=== PATIENT | female | born 1955 | race Caucasian/White ===

== ENCOUNTER 2017-01-22 14:00 | Emergency (ER) | payer MEDICARE ==
[~2017-01-22 14:00] MED LIST: ISOVUE-370 76%-LOCM 1 ML ONE; Iopamidol 370 76% 50 ML VIAL FS ONE
[2017-01-22 14:41] LABS: #Lymphocytes 1.4 thou/uL (1.20-3.40); #Monocytes 0.6 thou/uL (0.11-0.59); #Neutrophils 2.9 thou/uL (1.40-6.50); %Basophils 0.4 % (0.0-1.0); %Eosinophils 0.7 % (0.0-10.0); %Monocytes 11.7 % (0.0-10.0); Hematocrit 27.4 % (36.0-47.0); Mean Platelet Volume 8.1 fL (7.4-10.4); Red Blood Cell (RBC) Count 3.89 mill/uL (4.20-5.40); White Blood Cell (WBC) Count 4.9 thou/uL (4.8-10.8)
[2017-01-22 15:01] LABS: ALT (SGPT) 7 U/L (8-55); AST (SGOT) 17 U/L (5-34); Alkaline Phosphatase 105 U/L (40-150); Anion Gap 9 mmol/L (10-20); BUN (Urea Nitrogen) 9 mg/dL (9.8-20.1); Bilirubin, Total 0.4 mg/dL (0.2-1.2); Calc. Creatinine Clearance 0 mL/min (70-130); Calcium 8.8 mg/dL (7.8-10.44); Carbon Dioxide 28 mmol/L (23-31); Chloride 101 mmol/L (98-107); Estimated GFR-MDRD 81; Globulin 2.8 g/dL (2.4-3.5); Lipase 26 U/L (8-78); Protein, Total 6.5 g/dL (6.0-8.3)
[2017-01-22] MEDS ORDERED: Morphine 4 MG/ML VIAL ONE (15:02)
[2017-01-22] MEDS ORDERED: Pantoprazole 40 MG VIAL ONE (15:02)
[2017-01-22 15:06] LABS: Lactic Acid - Sepsis 0.4 mmol/L (0.5-2.2)
[2017-01-22 16:42] LABS: Bilirubin Negative (Negative); Blood, Urine Negative (Negative); Glucose, Urine (Dipstick) Negative (Negative); Ketone, Urine Negative (Negative); Nitrite Negative (Negative); Protein, Urine (Dipstick) Negative (Neg-Trace)
[2017-01-22 16:44] LABS: Bacteria/HPF 4+ HPF (None Seen); Hyaline Casts/LPF 0-3 HYALINE CAST LPF (0-3 Hyaline); Squamous Epithelial 0-3 HPF (0-3); WBC/HPF 21-50 HPF (0-3)
--- NOTE | 2017-01-22 17:12 | CT ---
ABDOMEN AND PELVIC CT SCAN WITH IV CONTRAST: History: 62-year-old female with abdominal pain, worsening over the last two days. Comparison: 01-29-15 FINDINGS: Minimal chronic appearing pleural based changes in the right lower lobe with a calcified granuloma. T here appear to be fairly extensive post-operative changes probably related to some type of gastric by pass surgery. Status post cholecystectomy with fairly marked dilatation of the common bile duct and c ommon hepatic duct but no significant intrahepatic ductal dilatation. There is also generalized dilat ation of the main pancreatic duct. There is a small amount of thin fluid density adjacent to the post erior medial aspect of the right lobe of the liver, possibly a small amount of free intraperitoneal f luid. No significant fluid is seen around the spleen or in the colonic gutters or in the pelvis. The kidneys have a somewhat scarred appearance without evidence for renal calculus or acute obstructio n. No CT evidence for acute appendicitis. No abscess, adenopathy, or bowel obstruction. IMPRESSION: Very small amount of fluid density adjacent to the posterior medial aspect of the right lobe of liver , possibly minimal intraperitoneal fluid. Post op changes of the stomach, evidence for probable prior gastric bypass surgery. Post op cholecystectomy with dilatation of the common bile duct and common h epatic duct and the main pancreatic duct without evidence of associated mass. Slightly scarred appear ing kidneys bilaterally without renal calculus or acute obstruction. No evidence for other signifi cant acute process in the abdomen or pelvis. POS: DEBBIE
== END 2017-01-22 19:20 | disposition home or self-care (01) ==
LOC: ERS 14:00
DX: N39.0 Urinary tract infection, site not specified (principal); J44.9 Chronic obstructive pulmonary disease, unspecified; I10 Essential (primary) hypertension; F32.9 Major depressive disorder, single episode, unspecified; F17.210 Nicotine dependence, cigarettes, uncomplicated; Z79.899 Other long term (current) drug therapy
CPT/HCPCS: 36415; 74177; 80053; 81003; 81015; 82274; 83605; 83690; 85025; 93005; 96361; 96374; 96375; C9113; J2270

== ENCOUNTER 2018-02-08 12:35 | Outpatient (CLI) | payer MEDICARE, MEDICAID ==
[2018-02-08 13:45] VITALS: BP 190/86; TEMP 98.6
[2018-02-08] MEDS ORDERED: Ferumoxytol (ERSD) 510 MG in Sodium Chloride 0.9% 250 ML 150 ML IVPB SCH (14:00)
[2018-02-08 14:45] LABS: Hemoglobin 8.2 g/dL (12.0-16.0); Mean Corpuscular HGB CONC 29.4 g/dL (32.0-36.0); Mean Corpuscular Hemoglobin 19.8 pg (27.0-31.0); Mean Corpuscular Volume 67.3 fL (78.0-98.0); Mean Platelet Volume 9.7 fL (7.4-10.4); Platelet Count 392 thou/uL (130-400); RBC Distribution Width 18.9 % (11.5-14.5); Red Blood Cell (RBC) Count 4.12 mill/uL (4.20-5.40); White Blood Cell (WBC) Count 5.8 thou/uL (4.8-10.8)
--- NOTE | 2018-02-08 14:52 | CT ---
CT THORAX NONCONTRAST: (Low dose screening) Date: 02/08/18 HISTORY: 62-year-old female current smoker with 94 pack-year smoking history. Cough and COPD. FINDINGS: There is diffuse hyperinflation. There are mild centrilobular emphysematous changes throughout the rafia ngs. No bulla identified. Plate-like pulmonary scar at posterobasilar right lower lobe. Calcified gra nuloma abutting posterolateral basilar pleural surface on right. No suspicious noncalcified pulmonary nodules. No ground-glass opacities, consolidation, bronchiectasis, pleural effusion, pneumothorax, c ardiomegaly, thoracic aortic aneurysm, or mediastinal lymphadenopathy. There are multiple suture line s in the left upper quadrant of the abdominal cavity. IMPRESSION: 1. Lung-RADS Category 1 (negative, less than 1% change of malignancy). 2. Mild centrilobular emphysema. 3. Evidence of previous bariatric surgery. 4. Recommend continued annual screening with low dose CT. FOREIGN Johnson POS: DANIEL
[2018-02-08 14:59] LABS: #Lymphocytes 1.3 thou/uL (1.20-3.40); #Monocytes 0.4 thou/uL (0.11-0.59); #Neutrophils 4.1 thou/uL (1.40-6.50); %Eosinophils 0.2 % (0.0-10.0); %Lymphocytes 22.4 % (21.0-51.0); %Monocytes 7.5 % (0.0-10.0); %Neutrophils 69.9 % (42.0-75.0)
[2018-02-08 15:22] LABS: Anisocytosis SLIGHT = 6-15 cells (100X) (0-5/hpf); Hypochromia SLIGHT = 6-15 cells (100X) (0-5/hpf); Microcytosis SLIGHT = 6-15 cells (100X) (0-5/hpf); Poikilocytosis SLIGHT = 6-15 cells (100X) (0-5/hpf)
== END 2018-02-08 15:55 | disposition home or self-care (01) ==
LOC: CT 12:35 → ONC/OP 15:55
PROVIDERS: ATTEND Internal Medicine Hematology & Oncology
DX: F17.210 Nicotine dependence, cigarettes, uncomplicated (principal); J43.2 Centrilobular emphysema; Z98.84 Bariatric surgery status
CPT/HCPCS: 85025; 96365; G0297; J7050; Q0139

== ENCOUNTER 2018-07-04 10:57 | Emergency (ER) | payer MEDICARE, MEDICAID ==
[~2018-07-04 10:57] MED LIST changes: -Iopamidol 370 76% 50 ML VIAL FS ONE
[2018-07-04 12:57] LABS: #Lymphocytes 1.9 thou/uL (1.20-3.40); #Monocytes 0.5 thou/uL (0.11-0.59); #Neutrophils 4.4 thou/uL (1.40-6.50); %Basophils 0.4 % (0.0-1.0); %Eosinophils 0.5 % (0.0-10.0); %Lymphocytes 28.1 % (21.0-51.0); %Monocytes 7.1 % (0.0-10.0); %Neutrophils 63.8 % (42.0-75.0); Hemoglobin 11.8 g/dL (12.0-16.0); Mean Corpuscular HGB CONC 31.5 g/dL (32.0-36.0); Mean Corpuscular Hemoglobin 26.4 pg (27.0-31.0); Mean Platelet Volume 7.1 fL (7.4-10.4); Platelet Count 297 thou/uL (130-400); RBC Distribution Width 16.4 % (11.5-14.5); Red Blood Cell (RBC) Count 4.47 mill/uL (4.20-5.40); White Blood Cell (WBC) Count 6.9 thou/uL (4.8-10.8)
[2018-07-04 13:12] LABS: Bilirubin Negative (Negative); Blood, Urine Trace (Negative); Clarity CLOUDY (Clear); Glucose, Urine (Dipstick) Negative (Negative); Leukocyte Small (Negative); Nitrite Positive (Negative); Protein, Urine (Dipstick) Negative (Neg-Trace); Specific Gravity, Urine 1.012 (1.002-1.036); pH, Urine 5.5 (5.0-9.0)
[2018-07-04 13:15] LABS: Bacteria/HPF 1+ HPF (None Seen); Hyaline Casts/LPF 0-3 HYALINE CAST LPF (0-3 Hyaline); Pathc Cast-AUWi Flag 0.13 (0-2.49); Squamous Epithelial 0-3 HPF (0-3)
[2018-07-04 13:22] LABS: ALT (SGPT) 8 U/L (8-55); AST (SGOT) 17 U/L (5-34); Albumin 4.1 g/dL (3.4-4.8); Alkaline Phosphatase 97 U/L (40-150); Anion Gap 14 mmol/L (10-20); BUN (Urea Nitrogen) 19 mg/dL (9.8-20.1); Bilirubin, Total 0.4 mg/dL (0.2-1.2); Calc. Creatinine Clearance 0 mL/min (70-130); Carbon Dioxide 22 mmol/L (23-31); Chloride 100 mmol/L (98-107); Estimated GFR-MDRD 45; Globulin 2.8 g/dL (2.4-3.5); Glucose 92 mg/dL (80-115); Lipase 32 U/L (8-78); Potassium 3.9 mmol/L (3.5-5.1); Protein, Total 6.9 g/dL (6.0-8.3); Sodium 132 mmol/L (136-145)
[2018-07-04] MEDS ORDERED: Lidocaine Viscous Sol 2% 15 ml UD Cup ONE (17:03)
[2018-07-04] MEDS ORDERED: Mag-Al 1200 mg/1200 mg/30 ML UDCUP ONE (17:03)
--- NOTE | 2018-07-04 17:38 | CT ---
CT abdomen with contrast CT pelvis with contrast: DATE: 07/04/2018 HISTORY: 62 year old female with upper abdominal pain with nausea. COMPARISON: 01/22/2017. TECHNIQUE: IV injection of iodinated contrast media:Administered Oral contrast media:Not administered FINDINGS: Suture line around narrowed stomach. Fluid-filled postsurgical loop of bowel with mural enhancement o f mucosa appears similar to that of the prior CT, except smaller in volume today. Diffuse dilation of biliary tree again noted probably secondary to the cholecystectomy. Otherwise unremarkable liver. No splenomegaly. No major pathology of pancreas identified. No hydronephrosis. No abdominal aortic aneurysm. Paucity of visceral fat limits the evaluation of bowel and structures outside of the solid organs. Absent uterus. Portions of normal appendix identified. No small bowel dilation. No overt evidence of severe colonic diverticulitis. No large amounts of ascites. No large amounts of pneumoper itoneum demonstrated. No pleural effusion or consolidation at lung bases. The tiny amount of fluid around the liver mentioned on the previous CT was probably a layer of muscle. It is unchanged. No mercedes or interval change overall. IMPRESSION: 1) status post cholecystectomy, bariatric surgery, and hysterectomy. 2) no obvious acute pathology identified.
== END 2018-07-04 19:00 | disposition home or self-care (01) ==
LOC: ERS 10:57
DX: K29.70 Gastritis, unspecified, without bleeding (principal); N39.0 Urinary tract infection, site not specified; F32.9 Major depressive disorder, single episode, unspecified; F17.210 Nicotine dependence, cigarettes, uncomplicated
CPT/HCPCS: 36415; 74177; 80053; 81003; 81015; 83690; 85025; Q9966

== ENCOUNTER 2018-12-17 20:05 | Emergency (ER) | payer MEDICARE, MEDICAID ==
--- NOTE | 2018-12-17 20:32 | RAD ---
Exam: Chest one view HISTORY:Cough Comparison: 01/29/2015 FINDINGS: Lungs: Minimal patchy density, left lung base. Lungs are hyperinflated. Cardiac silhouette:Stable Pulmonary vessels: Normal Pleural Spaces: Clear Pneumothorax: None Osseous abnormalities: None of acuity. IMPRESSION: Minimal patchy left basilar density. This could relate to volume loss, scarring, or subtl e area of consolidation. Short-term follow-up with two view chest would be beneficial to confirm resolution. COPD. Transcribed Date/Time: 12/17/2018 8:34 PM
[2018-12-17 21:20] LABS: #Lymphocytes 0.4 thou/uL (1.20-3.40); #Monocytes 0.9 thou/uL (0.11-0.59); #Neutrophils 7.6 thou/uL (1.40-6.50); %Eosinophils 0.1 % (0.0-10.0); %Lymphocytes 4.2 % (21.0-51.0); %Neutrophils 85.8 % (42.0-75.0); Hemoglobin 9.2 g/dL (12.0-16.0); Mean Corpuscular HGB CONC 32.3 g/dL (32.0-36.0); Mean Corpuscular Hemoglobin 27.5 pg (27.0-31.0); Mean Corpuscular Volume 85.1 fL (78.0-98.0); Mean Platelet Volume 7.7 fL (7.4-10.4); Platelet Count 188 thou/uL (130-400); RBC Distribution Width 15.6 % (11.5-14.5); Red Blood Cell (RBC) Count 3.35 mill/uL (4.20-5.40); White Blood Cell (WBC) Count 8.9 thou/uL (4.8-10.8)
[2018-12-17 21:46] LABS: ALT (SGPT) Less than 7 U/L (8-55); AST (SGOT) 15 U/L (5-34); Alkaline Phosphatase 76 U/L (40-110); Anion Gap 12 mmol/L (10-20); BUN (Urea Nitrogen) 22 mg/dL (9.8-20.1); Bilirubin, Total 0.3 mg/dL (0.2-1.2); Calc. Creatinine Clearance 0 mL/min (70-130); Calcium 7.5 mg/dL (7.8-10.44); Carbon Dioxide 20 mmol/L (23-31); Chloride 99 mmol/L (98-107); Estimated GFR-MDRD 44; Globulin 2.6 g/dL (2.4-3.5); Glucose 120 mg/dL (80-115); Potassium 3.6 mmol/L (3.5-5.1); Protein, Total 5.6 g/dL (6.0-8.3); Sodium 127 mmol/L (136-145)
[2018-12-17 22:32] LABS: Bacteria/HPF 4+ HPF (None Seen); Bilirubin Negative (Negative); Blood, Urine 1+ (Negative); Clarity Turbid (Clear); Glucose, Urine (Dipstick) Normal (Negative); Leukocyte 250 Leu/uL (Negative); Nitrite Negative (Negative); Protein, Urine (Dipstick) 50 mg/dL (Neg-Trace); RBC/HPF 0-3 HPF (0-3); Squamous Epithelial 0-3 HPF (0-3); Urobilinogen Normal mg/dL (Less than 2)
[2018-12-17] MEDS ORDERED: cefTRIAXone\\ROCEPHIN 2 GM VIAL ONE (22:56)
== END 2018-12-17 23:55 | disposition home or self-care (01) ==
LOC: ERS 20:05
DX: N39.0 Urinary tract infection, site not specified (principal); I10 Essential (primary) hypertension; J44.9 Chronic obstructive pulmonary disease, unspecified; F41.9 Anxiety disorder, unspecified; F32.9 Major depressive disorder, single episode, unspecified; F17.210 Nicotine dependence, cigarettes, uncomplicated
CPT/HCPCS: 36415; 51701; 71045; 80053; 81003; 81015; 83605; 85025; 87040; 87077; 87086; 87149; 87186; 87804; 96361; 96365; A4353; J0696

== ENCOUNTER 2018-12-27 10:29 | Emergency (ER) | payer MEDICARE, MEDICAID ==
[2018-12-27] MEDS ORDERED: Mag-Al 1200 mg/1200 mg/30 ML UDCUP ONE (10:48)
[2018-12-27] MEDS ORDERED: Ondansetron ODT 8 MG TAB ONE (10:48)
[2018-12-27] MEDS ORDERED: Lidocaine Viscous Sol 2% 15 ml UD Cup ONE (10:48)
[2018-12-27 11:04] LABS: #Lymphocytes 1.1 thou/uL (1.20-3.40); #Monocytes 0.4 thou/uL (0.11-0.59); %Basophils 0.2 % (0.0-1.0); %Eosinophils 0.1 % (0.0-10.0); %Lymphocytes 9.3 % (21.0-51.0); %Monocytes 3.4 % (0.0-10.0); %Neutrophils 86.9 % (42.0-75.0); Hemoglobin 13.2 g/dL (12.0-16.0); Mean Corpuscular HGB CONC 30.5 g/dL (32.0-36.0); Mean Corpuscular Hemoglobin 26.3 pg (27.0-31.0); Mean Corpuscular Volume 86.4 fL (78.0-98.0); Mean Platelet Volume 6.4 fL (7.4-10.4); Platelet Count 656 thou/uL (130-400); RBC Distribution Width 16.2 % (11.5-14.5); Red Blood Cell (RBC) Count 5.03 mill/uL (4.20-5.40); White Blood Cell (WBC) Count 11.5 thou/uL (4.8-10.8)
[2018-12-27 11:29] LABS: ALT (SGPT) 8 U/L (8-55); AST (SGOT) 17 U/L (5-34); Albumin 4.1 g/dL (3.4-4.8); Alkaline Phosphatase 136 U/L (40-110); Anion Gap 21 mmol/L (10-20); BUN (Urea Nitrogen) 16 mg/dL (9.8-20.1); Bilirubin, Total 0.4 mg/dL (0.2-1.2); Calc. Creatinine Clearance 0 mL/min (70-130); Calcium 9.3 mg/dL (7.8-10.44); Carbon Dioxide 20 mmol/L (23-31); Chloride 99 mmol/L (98-107); Estimated GFR-MDRD 60; Globulin 3.2 g/dL (2.4-3.5); Glucose 94 mg/dL (80-115); Lipase 22 U/L (8-78); Potassium 4.5 mmol/L (3.5-5.1); Protein, Total 7.3 g/dL (6.0-8.3); Sodium 135 mmol/L (136-145)
[2018-12-27] MEDS ORDERED: ISOVUE-370 76%-LOCM 1 ML ONE (11:39)
--- NOTE | 2018-12-27 12:25 | CT ---
CT ABDOMEN AND PELVIS WITH IV CONTRAST 12/27/2018 CLINICAL INFORMATION: Worsening abdominal pain. COMPARISON: 07/04/2018. Technique: Multiple contiguous axial CT images are obtained through the abdomen and pelvis with IV contrast. Cor onal reformatted images are provided. FINDINGS: Lower Chest: Stable scarring is present at the right lung base with associated calcified granuloma. Vessels: Vascular calcifications are seen in the abdominal aorta and involving the iliac arteries. Abdomen: Portal vein:Patent Gallbladder: Surgically absent. The common duct is dilated measuring 1.4 cm with minimal intrahepatic biliary ductal dilatation. The extrahepatic biliary dilatation is slightly more than expected for postcholecystectomy changes, but this is probably attributable to reservoir effect. Similar finding w as noted on the prior exam. Liver: within normal limits. Spleen: Calcified granulomata are present. Pancreas: within normal limits. Adrenals: within normal limits. Kidneys: Left leg appearance with stable subcentimeter too small to characterize hypodense lesions in each kidney. Bowel: Postsurgical changes of loops of bowel in the upper abdomen are noted likely prior gastric byp ass procedure. There is no evidence of a bowel obstruction. Appendix: The appendix is visualized and normal in caliber. Vessels: Vascular calcifications are seen in the abdominal aorta and involving the iliac arteries. Peritoneum: No ascites or free air; no fluid collection. Mesentery and Retroperitoneum: No enlarged mesenteric or retroperitoneal lymph nodes. Abdominal Wall: within normal limits. Pelvis: Reproductive Organs: Evidence of prior hysterectomy. Pelvis: There is a complex multiseptated cystic mass seen in the left hemipelvis measuring 5.1 cm AP x3.3 cm transverse. This mass was also present on the prior exam given the adjacent loops of unopacified bowel is difficult to delineate.. This could potentially be ovarian in origin. Bladder: Mostly decompressed. Bones: No suspicious lytic or sclerotic osseous lesions are identified. IMPRESSION: Multiseptated cystic mass left hemipelvis measuring 5.1 cm x 3.3 cm with interval enlargement and ang or measurements of 4.9 cm x 2.6 cm. Exact etiology of this cystic mass is uncertain. This may be ovarian in origin and may represent a benign or malignant cystic neoplastic process. Given positionin g of this cystic mass, this may be difficult to further evaluate given multiple overlying loops of bowel, pelvic ultrasound may be beneficial for further evaluation.
[2018-12-27 12:28] LABS: Bilirubin Negative (Negative); Blood, Urine Trace (Negative); Clarity Clear (Clear); Glucose, Urine (Dipstick) Normal (Negative); Leukocyte Negative Leu/uL (Negative); Nitrite Negative (Negative); Protein, Urine (Dipstick) 200 mg/dL (Neg-Trace); Urobilinogen Normal mg/dL (Less than 2)
[2018-12-27 12:31] LABS: Bacteria/HPF 1+ HPF (None Seen)
== END 2018-12-27 13:00 | disposition home or self-care (01) ==
LOC: ERS 10:29
DX: K21.9 Gastro-esophageal reflux disease without esophagitis (principal); R19.00 Intra-abdominal and pelvic swelling, mass and lump, unspecified site; I10 Essential (primary) hypertension; J44.9 Chronic obstructive pulmonary disease, unspecified; M19.90 Unspecified osteoarthritis, unspecified site; F41.9 Anxiety disorder, unspecified; F32.9 Major depressive disorder, single episode, unspecified; F17.210 Nicotine dependence, cigarettes, uncomplicated
CPT/HCPCS: 36415; 74177; 80053; 81003; 81015; 83690; 84484; 85025; 93005

== ENCOUNTER 2019-05-31 22:32 | Observation (INO) | payer MEDICARE, MEDICAID ==
[~2019-05-31 22:32] MED LIST changes: -ISOVUE-370 76%-LOCM 1 ML ONE; +Iopamidol 370 76% 100 ML VIAL ONE
[2019-05-31] MEDS ORDERED: Morphine 4 MG/ML VIAL ONE (23:05)
[2019-05-31] MEDS ORDERED: Lidocaine Viscous Sol 2% 15 ml UD Cup ONE (23:05)
[2019-05-31] MEDS ORDERED: Mag-Al 1200 mg/1200 mg/30 ML UDCUP ONE (23:05)
[2019-05-31 23:06] LABS: #Basophils 0.1 thou/uL (0.0-0.2); #Lymphocytes 2.3 thou/uL (1.20-3.40); #Monocytes 0.8 thou/uL (0.11-0.59); #Neutrophils 5.4 thou/uL (1.40-6.50); %Basophils 0.9 % (0.0-1.0); %Eosinophils 0.3 % (0.0-10.0); %Lymphocytes 27.1 % (21.0-51.0); %Monocytes 8.8 % (0.0-10.0); Hemoglobin 10.8 g/dL (12.0-16.0); Mean Corpuscular HGB CONC 31.5 g/dL (32.0-36.0); Mean Corpuscular Hemoglobin 25.7 pg (27.0-31.0); Mean Corpuscular Volume 81.4 fL (78.0-98.0); Mean Platelet Volume 6.8 fL (7.4-10.4); Platelet Count 402 thou/uL (130-400); RBC Distribution Width 15.5 % (11.5-14.5); Red Blood Cell (RBC) Count 4.23 mill/uL (4.20-5.40); White Blood Cell (WBC) Count 8.6 thou/uL (4.8-10.8)
--- NOTE | 2019-05-31 23:22 | RAD ---
XR Chest 1 View Portable History: Chest pain Comparison: Radiograph December 2018 Findings: Lungs are hyperinflated. Pulmonary arteries are mildly distended. Distal clavicular osteoly sis bilaterally. No confluent airspace consolidation, pneumothorax, or effusion. Impression: No acute intrathoracic abnormality.
[2019-05-31 23:23] LABS: Bilirubin Negative (Negative); Blood, Urine Trace (Negative); Clarity Clear (Clear); Glucose, Urine (Dipstick) Normal (Negative); Leukocyte Negative Leu/uL (Negative); Nitrite 2+ (Negative); Protein, Urine (Dipstick) 50 mg/dL (Neg-Trace); Squamous Epithelial 0-3 HPF (0-3); Urobilinogen Normal mg/dL (Less than 2); WBC/HPF 0-3 HPF (0-3)
[2019-05-31 23:24] LABS: Bacteria/HPF 1+ HPF (None Seen)
[2019-05-31 23:30] LABS: ALT (SGPT) 9 U/L (8-55); AST (SGOT) 16 U/L (5-34); Alkaline Phosphatase 93 U/L (40-110); Anion Gap 16 mmol/L (10-20); BUN (Urea Nitrogen) 19 mg/dL (9.8-20.1); Bilirubin, Total 0.3 mg/dL (0.2-1.2); Calc. Creatinine Clearance 0 mL/min (70-130); Calcium 8.9 mg/dL (7.8-10.44); Carbon Dioxide 21 mmol/L (23-31); Chloride 102 mmol/L (98-107); Estimated GFR-MDRD 61; Globulin 2.9 g/dL (2.4-3.5); Glucose 97 mg/dL (80-115); Lipase 51 U/L (8-78); Protein, Total 6.9 g/dL (6.0-8.3); Sodium 135 mmol/L (136-145)
[2019-05-31] MEDS ORDERED: Labetalol HCl 100 MG/20 ML VIAL ONE (23:52)
--- NOTE | 2019-06-01 00:03 | CT ---
CT Abdomen Pelvis W Con History: Abdominal pain Comparison: CT abdomen pelvis December 2018 Findings: Scarring within the right lung base with peripheral pleural calcification. No pericardial e ffusion. Similar markedly dilatation of the common bile duct as well as pancreatic duct. Mild intrahepatic rob iary dilatation. Prior gastric surgery. The appendix is felt to be visualized and is normal. Similar appearance of the septated mass within the left adnexa. No retroperitoneal periaortic adenopathy. Celiac trunk and superior mesenteric arteries are patent. N o hydronephrosis. Multiple splenic granulomas. Impression: 1. 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 2. Similar appearance left adnexal complex solid cystic mass. As previously recommended, a follow-up pelvic ultrasound recommended. MRI with without contrast of the pelvis may also be beneficial on a nonemergent basis. 3. No evidence for bowel obstruction. 4. Normal appendix.
[2019-06-01] MEDS ORDERED: Nitroglycerin 0.4 MG TAB (25 Tab Bottle) PO PRN (01:17)
[2019-06-01] MEDS ORDERED: Labetalol HCl 100 MG/20 ML VIAL SLOW IVP PRN (01:20)
[2019-06-01] MEDS ORDERED: Pantoprazole 40 MG VIAL IVP SCH (02:00)
--- NOTE | 2019-06-01 02:17 | HP ---
CHIEF COMPLAINT: Epigastric pain and chest pain. HISTORY OF PRESENT ILLNESS: Ms. Hathaway is a 63-year-old female with past medical history of gastric bypass, hypertension, COPD, among others, presents to the emergency room with epigastric pain and chest pain that has been going on for the last week and it got worse today. The abdominal pain feels similar to prior episodes of ulcers, but has not been scoped in several years. Patient was given nitro en route to the emergency room with improvement of the chest pain. Workup in the emergency room, patient was found to be hypertensive with a blood pressure of 214/119. Patient was given IV labetalol, latest blood pressure is 160 over 100s. Initial cardiac workup including troponin, EKG, no acute finding. IMAGING STUDIES: Including a CT of the abdomen, no acute finding. Patient is being admitted to hospital for further management. PAST MEDICAL HISTORY: 1. Gastric ulcers. 2. Hypertension. 3. COPD. 4. Arthritis. 5. Hypertension. PAST SURGICAL HISTORY: 1. Gastric bypass. 2. Cholecystectomy. 3. Hernia repair. 4. Hysterectomy. 5. Orthopedic surgery, left elbow, bilateral shoulders. 6. Tubal ligation. PAST PSYCHIATRIC HISTORY: Anxiety and depression. SOCIAL HISTORY: Patient smokes about two packs per day. . She also abuses marijuana. She drinks alcohol socially. FAMILY HISTORY: Daughter had quadruple bypass at the age of 43. ALLERGIES: SULFA. HOME MEDICATIONS: Please see home medication reconciliation form for updated medications. REVIEW OF SYSTEMS: Review of 14 systems negative, except what is mentioned in history of present illness. PHYSICAL EXAMINATION: GENERAL: Patient is awake, alert, and oriented, in moderate distress secondary to the pain. VITAL SIGNS: Blood pressure 162/102, pulse is 78, respiratory rate is 18, pulse oximetry 98% on room air, and temperature is 98. HEAD AND NECK: Normocephalic, atraumatic. Neck is supple. No JVD. CHEST: Decreased air entry bilaterally. HEART: S1, S2. Regular. ABDOMEN: Soft with epigastric tenderness. Bowel sounds present. NEUROLOGIC: Awake, alert, and oriented x3. PSYCH: Normal mood. EXTREMITIES: No clubbing or cyanosis. GENITOURINARY: No flank tenderness. No suprapubic tenderness. LABORATORY DATA: CT abdomen and pelvis as mentioned above in history of present illness. Chest x-ray, no acute finding. Labs reviewed. Troponin 0.01. ASSESSMENT: 1. Acute chest pain. 2. Acute epigastric pain. 3. Hypertensive urgency. 4. Chronic obstructive pulmonary disease. 5. Cigarette smoker. PLAN: 1. Admit. 2. Tele monitoring. 3. Serial troponins. 4. Monitor and control blood pressure. 5. Proton pump inhibitor. 6. Reassess in the a.m. If acute coronary syndrome is ruled out, patient may need GI evaluation for possible endoscopy. Patient has history of ulcers in the past. 7. Reconcile home medications. 8. DVT prophylaxis as appropriate. 9. Expected length of stay at least one midnight if patient is stable and further workup negative. Job ID: [id number]
[2019-06-01 02:20] LABS: Troponin I Less than 0.010 ng/mL (< 0.028)
[2019-06-01] MEDS ORDERED: Morphine 2 MG/ML SYRINGE SLOW IVP PRN (03:06)
[2019-06-01] MEDS ORDERED: Sodium Chloride 0.9% 10 ML ONE (03:16)
[2019-06-01 05:32] LABS: Troponin I Less than 0.010 ng/mL (< 0.028)
[2019-06-01] MEDS: Pantoprazole 40 MG VIAL IVP SCH ×2 (08:37→20:49)
[2019-06-01] MEDS ORDERED: FLU VACC QS2019-20(6MOS UP)/PF 60 MCG/0.5 ML SYRINGE IM ONE (09:00)
[2019-06-01] MEDS ORDERED: Albuterol Sulfate 2.5 mg/3 ml Neb NEB SCH (09:00)
[2019-06-01] MEDS: traMADol HCl 50 MG TAB PO PRN ×2 (09:46→18:12)
--- NOTE | 2019-06-01 10:34 | PDOC.HOSPP ---
- Subjective Encounter Date: 06/01/19 Encounter Time: 09:00 Subjective: c/o epigastric pain and fullness and mild retrosternal burning. no nausea, has headache, no weakness in extremities or fever or cough - Objective Vital Signs & Weight: Vital Signs (12 hours) Temp Pulse Resp BP Pulse Ox 06/01/19 10:30 92 L 06/01/19 10:28 73 16 92 L 06/01/19 07:30 98.4 F 73 16 155/79 H 92 L 06/01/19 04:08 73 20 170/91 H 06/01/19 03:15 99 06/01/19 02:20 97.8 F 71 20 188/99 H 100 Weight Weight 104 lb 11.513 oz I&O: 05/31/19 06/01/19 06/02/19 06:59 06:59 06:59 Intake Total 320 Output Total 450 Balance -130 Result Diagrams: 05/31/19 22:48 05/31/19 22:48 Hospitalist ROS - Medication Medications: Active Medications Generic Name Dose Route Start Last Admin Trade Name Kofiq PRN Reason Stop Dose Admin Albuterol Sulfate 2.5 mg 06/01/19 09:00 06/01/19 10:28 Ventolin NEB 2.5 mg QID RANDI Administration Pantoprazole Sodium 40 mg 06/01/19 09:00 06/01/19 08:37 Protonix IVP 40 mg Q12HR RANDI Administration Sodium Chloride 10 ml 06/01/19 09:00 06/01/19 08:37 Flush - Normal Saline IVF 10 ml Q12HR RANDI Administration Tramadol HCl 50 mg 06/01/19 09:24 06/01/19 09:46 Ultram PO 50 mg Q6H PRN Administration Mild-Moderate Pain (1-5) - Exam General Appearance: awake alert Eye: PERRL, anicteric sclera ENT: no oropharyngeal lesions, dry oral mucosa Neck: supple, no JVD Heart: RRR, no murmur Respiratory: no wheezes, no rales, rhonchi Gastrointestinal: soft, normal bowel sounds, no guarding, no rigidity Gastrointestinal - other findings: tenderness in epigastric area+ Extremities: no cyanosis, no edema Neurological: cranial nerve grossly intact, no focal deficits Psychiatric: normal affect, A&O x 3 Hosp A/P (1) Abdominal pain Code(s): R10.9 - UNSPECIFIED ABDOMINAL PAIN Status: Acute Qualifiers: Abdominal location: epigastric Qualified Code(s): R10.13 - Epigastric pain (2) B12 deficiency Code(s): E53.8 - DEFICIENCY OF OTHER SPECIFIED B GROUP VITAMINS Status: Chronic (3) HTN (hypertension), benign Code(s): I10 - ESSENTIAL (PRIMARY) HYPERTENSION Status: Chronic (4) History of alcohol abuse Code(s): Z87.898 - PERSONAL HISTORY OF OTHER SPECIFIED CONDITIONS Status: Chronic (5) Hypoalbuminemia Code(s): E88.09 - [facility] DISORDERS OF PLASMA-PROTEIN METABOLISM, NEC Status: Chronic (6) Tobacco abuse Code(s): Z72.0 - TOBACCO USE Status: Chronic (7) COPD (chronic obstructive pulmonary disease) Status: Chronic Qualifiers: COPD type: chronic bronchitis Chronic bronchitis type: unspecified Qualified Code(s): J42 - Unspecified chronic bronchitis (8) Chronic anemia Code(s): D64.9 - ANEMIA, UNSPECIFIED Status: Chronic - Plan prior h/o anastamotic ulcer with h/o gastric bypass has epigastric pain and fullness, CT shows dil hepatic ducts similar in comparison to old CT Will get GI opinion, ?MRCP or ercp/dil of ampulla trop x3 is -ve she quit drinking 6 beers/day from dec of last year, still smokes 1-2 packs/day now. labs now and in am, lft's and lipase are normal will f/u
[2019-06-01 10:42] LABS: #Basophils 0.1 thou/uL (0.0-0.2); #Lymphocytes 1.2 thou/uL (1.20-3.40); #Monocytes 0.6 thou/uL (0.11-0.59); #Neutrophils 4.9 thou/uL (1.40-6.50); %Basophils 0.9 % (0.0-1.0); %Eosinophils 0.7 % (0.0-10.0); %Monocytes 9.1 % (0.0-10.0); %Neutrophils 71.2 % (42.0-75.0); Hemoglobin 10.4 g/dL (12.0-16.0); Mean Corpuscular Hemoglobin 25.2 pg (27.0-31.0); Mean Corpuscular Volume 81.4 fL (78.0-98.0); Mean Platelet Volume 6.9 fL (7.4-10.4); Platelet Count 344 thou/uL (130-400); RBC Distribution Width 15.5 % (11.5-14.5); Red Blood Cell (RBC) Count 4.12 mill/uL (4.20-5.40); White Blood Cell (WBC) Count 6.9 thou/uL (4.8-10.8)
[2019-06-01 10:58] LABS: ALT (SGPT) 10 U/L (8-55); AST (SGOT) 17 U/L (5-34); Albumin 3.8 g/dL (3.4-4.8); Alkaline Phosphatase 86 U/L (40-110); Anion Gap 11 mmol/L (10-20); BUN (Urea Nitrogen) 13 mg/dL (9.8-20.1); Bilirubin, Total 0.4 mg/dL (0.2-1.2); Calc. Creatinine Clearance 51 mL/min (70-130); Calcium 8.7 mg/dL (7.8-10.44); Carbon Dioxide 24 mmol/L (23-31); Chloride 102 mmol/L (98-107); Estimated GFR-MDRD 68; Globulin 2.7 g/dL (2.4-3.5); Glucose 82 mg/dL (80-115); Potassium 4.2 mmol/L (3.5-5.1); Protein, Total 6.5 g/dL (6.0-8.3); Sodium 133 mmol/L (136-145)
[2019-06-01] MEDS: Albuterol Sulfate 2.5 mg/3 ml Neb NEB SCH ×3 (11:06→19:00)
[2019-06-01] MEDS ORDERED: Ketorolac Tromethamine 30 MG/ML VIAL IVP SCH (13:00)
[2019-06-01] MEDS ORDERED: PROVENTIL INHALER 6.7 G (200 INHALATIONS) INH SCH (13:00)
[2019-06-01] MEDS: Ondansetron PF 4 MG/2 ML Vial SLOW IVP PRN (13:01)
--- NOTE | 2019-06-01 18:51 | CON ---
DATE OF CONSULTATION: 06/01/2019 CHIEF COMPLAINT: Abdominal pain. HISTORY OF PRESENT ILLNESS: Ms. Hathaway is a 63-year-old woman who presented to the emergency room with epigastric burning to aching pain that radiates up to her lower substernal region. The pain started around a week ago and is gradually worsened, such that she came on to the emergency room. She received morphine IV for the pain, which she states helped. She has no vomiting, but has had some nausea. She had a normal brown formed stool yesterday. No blood in the stool. Weight has been stable. She has a history of a gastric bypass surgery in 1998. She had a chronic ulcer at the gastrojejunal anastomosis and underwent revision in 2008. She did have a recurrent ulcer back in 2012, but EGD in 2014 showed no ulcer. She had her most recent upper endoscopy in 2015 with no evidence of ulceration at the anastomosis. Despite the problems with the chronic anastomotic ulcer, she has continued to smoke a pack and half a day and has been taking generic NSAIDs over the counter. She has been advised on multiple occasions to stop these, which she acknowledges, but still continues to do. She does state that she quit drinking alcohol a couple of months ago. PAST MEDICAL HISTORY: 1. COPD. 2. Hypertension. 3. Arthritis. 4. Gastrojejunal anastomosis ulceration. 5. 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 Laboratory tests did not show obvious signs of cirrhosis either. PAST SURGICAL HISTORY: 1. Bryn-[place]-Y gastric bypass. 2. Gastrojejunal anastomosis revision. 3. Cholecystectomy. 4. Hernia repair. 5. Hysterectomy. 6. Tubal ligation. 7. Shoulder and elbow surgery. FAMILY HISTORY: Negative for GI malignancy. SOCIAL HISTORY: She smokes a pack and a half or so per day. She uses marijuana. She states that she quit alcohol a couple of months ago. ALLERGIES: SULFA. MEDICATIONS: Prior to admission include: 1. Khve-eyu-sxaeihc generic NSAIDs. 2. Metoprolol. 3. Lisinopril. 4. Citalopram. 5. Albuterol. 6. Symbicort. REVIEW OF SYSTEMS: Negative x10 systems reviewed except as stated in the history of present illness. PHYSICAL EXAMINATION: VITAL SIGNS: Temperature 98.3, pulse 66, and blood pressure 177/92. GENERAL: She is in no acute distress. Alert and oriented x3. HEENT: Eyes have no scleral icterus. Oropharynx is clear without lesions. No cervical or supraclavicular lymphadenopathy. LUNGS: Clear to auscultation bilaterally. HEART: Regular rate and rhythm without murmur. ABDOMEN: Tender in the epigastric region without guarding. Bowel sounds are present. EXTREMITIES: No lower extremity edema. LABORATORY DATA: Creatinine 0.84, bilirubin 0.4, AST 17, ALT 10, and alkaline phosphatase 86. IMPRESSION: 1. Epigastric abdominal pain. Given ongoing smoking and nonsteroidal anti-inflammatory drug use, she certainly could have a recurrent ulcer at the gastrojejunal anastomosis. She has no evidence of overt bleeding and endoscopy is unlikely to gear changer at this time. I reiterated the same recommendations that we have given multiple times in the past including cessation of smoking and cessation of nonsteroidal anti-inflammatory drugs. She has at least stopped drinking a couple of months ago. She has not been on a proton pump inhibitor at home and she will be continued on that now. 2. History of iron-deficiency anemia, associated with gastric bypass surgery. She was advised to undergo IV iron infusions previously, but did not keep these appointments. 3. Dilated bile ducts and pancreatic duct by CT scan in the postcholecystectomy state. Her liver tests are normal and the dilation has been present for years. This does not appear to be related to her current pain or a new change. RECOMMENDATIONS: 1. Proton pump inhibitor. 2. Advance her diet if she tolerates it. 3. Recommend cessation of NSAIDs and smoking. Job ID: [id number]
[2019-06-01] MEDS: Morphine 2 MG/ML SYRINGE SLOW IVP PRN (20:49)
[2019-06-02] MEDS: Morphine 2 MG/ML SYRINGE SLOW IVP PRN ×3 (01:33→11:18)
[2019-06-02 04:17] LABS: #Lymphocytes 1.2 thou/uL (1.20-3.40); #Monocytes 0.7 thou/uL (0.11-0.59); #Neutrophils 4.8 thou/uL (1.40-6.50); %Basophils 0.6 % (0.0-1.0); %Eosinophils 0.4 % (0.0-10.0); %Lymphocytes 18.4 % (21.0-51.0); %Monocytes 9.6 % (0.0-10.0); %Neutrophils 70.9 % (42.0-75.0); Hemoglobin 10.1 g/dL (12.0-16.0); Mean Corpuscular HGB CONC 31.4 g/dL (32.0-36.0); Mean Corpuscular Hemoglobin 25.7 pg (27.0-31.0); Mean Corpuscular Volume 81.7 fL (78.0-98.0); Mean Platelet Volume 6.8 fL (7.4-10.4); Platelet Count 337 thou/uL (130-400); RBC Distribution Width 15.4 % (11.5-14.5); Red Blood Cell (RBC) Count 3.93 mill/uL (4.20-5.40); White Blood Cell (WBC) Count 6.7 thou/uL (4.8-10.8)
[2019-06-02 04:44] LABS: ALT (SGPT) 8 U/L (8-55); AST (SGOT) 17 U/L (5-34); Albumin 3.6 g/dL (3.4-4.8); Alkaline Phosphatase 90 U/L (40-110); Anion Gap 13 mmol/L (10-20); BUN (Urea Nitrogen) 11 mg/dL (9.8-20.1); Bilirubin, Total 0.5 mg/dL (0.2-1.2); Calc. Creatinine Clearance 52 mL/min (70-130); Calcium 8.9 mg/dL (7.8-10.44); Carbon Dioxide 24 mmol/L (23-31); Chloride 99 mmol/L (98-107); Estimated GFR-MDRD 70; Globulin 2.8 g/dL (2.4-3.5); Glucose 81 mg/dL (80-115); Potassium 4.7 mmol/L (3.5-5.1); Protein, Total 6.4 g/dL (6.0-8.3); Sodium 131 mmol/L (136-145)
[2019-06-02] MEDS ORDERED: Ciprofloxacin 500 MG TAB PO SCH ×2 (07:15→20:00)
[2019-06-02] MEDS: Albuterol Sulfate 2.5 mg/3 ml Neb NEB SCH ×2 (07:20→10:56)
[2019-06-02 08:51] VITALS: TEMP 98
[2019-06-02] MEDS: Ondansetron PF 4 MG/2 ML Vial SLOW IVP PRN (08:53)
[2019-06-02] MEDS ORDERED: Citalopram 20 MG TAB PO SCH (09:00)
[2019-06-02] MEDS ORDERED: CITALOPRAM HYDROBROMIDE PO SCH (09:00)
[2019-06-02] MEDS ORDERED: Non-Formulary Item 1 EACH (Budesonide-Formoterol [Symbicort 160-4.5] 2 PUFF) INH SCH (09:00)
[2019-06-02 11:48] VITALS: BP 165/81
--- NOTE | 2019-06-02 12:57 | DIS ---
DATE OF ADMISSION: 06/01/2019 DATE OF DISCHARGE: 06/02/2019 DISCHARGE DISPOSITION: Home. PRIMARY DISCHARGE DIAGNOSIS: Epigastric pain with radiation to retrosternal area, resolved, likely from underlying peptic ulcer disease. SECONDARY DISCHARGE DIAGNOSES: Hypertension; history of alcohol abuse in the past; tobacco abuse; chronic obstructive pulmonary disease with ongoing smoking; chronic anemia; hypoalbuminemia, which is chronic. PROCEDURES DONE DURING HOSPITALIZATION: The patient has had chest x-ray done, which showed no acute intrathoracic disease. CT of the abdomen and pelvis with contrast done showed similar appearance of dilated intra and extrahepatic biliary ducts as well as pancreatic ducts when compared to prior CAT scan done in December of 2018. She had similar appearance of left adnexal complex solid cystic mass. Urine culture grew Klebsiella sensitive to quinolones. Hemoglobin and hematocrit 10 and 32, platelet count 337, MCV is 81, white count of 6. BUN 11, creatinine 0.8. Troponin x3 negative. BNP 180. DISCHARGE MEDICATIONS: 1. Ciprofloxacin 500 mg p.o. twice daily for another 4 days for UTI. 2. Protonix 40 mg p.o. twice daily. 3. Metoprolol succinate extended release 25 mg daily. 4. Albuterol inhaler q.6 hourly p.r.n. 5. Lisinopril 20 mg daily. 6. Citalopram 40 mg p.o. daily. 7. Symbicort 160/4.5 mcg two puffs twice daily. ALLERGIES: SULFA. DISCHARGE PLAN: The patient to follow up with her primary care physician, Dr. Kumar in 1 week. She also needs to follow up with Dr. Devi in 3 to 4 weeks. BRIEF COURSE DURING HOSPITALIZATION: The patient initially came in with complaints of epigastric pain with radiation in the retrosternal area. In view of this history and prior history of peptic ulcers with risk factors for ACS, the patient was placed under observation on telemetry. Three sets of troponin were negative. The patient has known history of anastomotic ulcer at her prior gastric bypass site. She has had serial hemoglobin and hematocrit done, which have remained stable. The patient was evaluated by Dr. Bayron Aponte as well. She has chronic dilation of her intrahepatic and pancreatic ducts with normal liver function tests. The patient was counseled with regard to tobacco abuse cessation. She has stopped drinking alcohol from December of last year. She is otherwise hemodynamically stable and has been cleared for discharge by Dr. Aponte. She needs to follow up with Dr. Devi in 3 weeks. Please note, I have seen and examined the patient on the day of discharge. Job ID: [id number]
[2019-06-02 14:26] VITALS: BMI 17.2
[2019-06-02] MEDS ORDERED: Mometasone 200 MCG/Formoterol 5 MCG 120 PUFF INHALER INH SCH (18:30)
[2019-06-02] MEDS ORDERED: Lisinopril 20 MG TAB PO SCH (21:00)
== END 2019-06-02 13:55 | disposition home or self-care (01) ==
LOC: ERS 22:32 → 2NO 06-01 01:15
PROVIDERS: ADMIT Internal Medicine; ATTEND Internal Medicine
DX: I16.0 Hypertensive urgency (principal); I10 Essential (primary) hypertension; J44.9 Chronic obstructive pulmonary disease, unspecified; E88.09 Other disorders of plasma-protein metabolism, not elsewhere classified; F41.9 Anxiety disorder, unspecified; F32.9 Major depressive disorder, single episode, unspecified; Z79.899 Other long term (current) drug therapy; Z88.2 Allergy status to sulfonamides
CPT/HCPCS: 71045; 74177; 80053 ×3; 83605; 83690; 83880; 84484 ×3; 85025 ×3; 87077; 87086; 87186; 90686; 90732; 93005; 94640 ×3; 94760; 96374; 96375 ×2; 96376 ×2; 99285; G0008; G0009; G0378 ×3; 36415; 81003; 81015; 90471; C9113; J1885; J2270; J2405; J7611; Q9967

== ENCOUNTER 2020-02-28 14:08 | Inpatient (IN) | payer MEDICARE, MEDICAID ==
[2020-02-28] MEDS ORDERED: Diltiazem 125 MG/25 ML ONE (14:25)
[2020-02-28 14:28] LABS: Actual Bicarbonate (HCO3a) 24.8 mEq/L (22-28); Analyzer IN Cardio ER; Base Excess (BEa) -1.5 mEq/L (-2.0 to +3.0); CO2 Tension 48.8 mmHg (35.0-45.0); Calcium, Ionized (arterial) 1.13 mmol/L (1.12-1.30); Carboxyhemoglobin (COHb) 0.6 gm% (0.0-3.0); Hemoglobin (Hb) 10.4 g/dL (12.0-16.0); O2 Tension (PaO2), arterial 133.1 mmHg (> 80.0); Potassium - ABG Lab 4.29 mmol/L (3.70-5.30); pH, Arterial 7.32 (7.35-7.45)
[2020-02-28 14:31] LABS: Puncture Site RRA
[2020-02-28] MEDS ORDERED: Albuterol Sulfate 2.5 mg/0.5 ml Neb ONE ×2 (14:44)
[2020-02-28] MEDS ORDERED: Albuterol Sulfate 2.5 mg/3 ml Neb ONE ×2 (14:44)
--- NOTE | 2020-02-28 14:49 | RAD ---
Chest AP view INDICATION: Dyspnea COMPARISON: Prior exam dated May 31, 2019 FINDINGS: Lungs: There are bilateral interstitial opacities. There are peripheral groundglass opacity involvin g both lungs and right upper lobe suspicious for edema. Cardiac silhouette: There is moderate cardiomegaly Pulmonary vasculature: There is mild pulmonary vascular congestion Pleural spaces: There are small bilateral pleural effusions. No pneumothorax Upper abdomen: No abnormality seen. Osseous structures: No acute osseous abnormality. Additional findings: None. IMPRESSION: Findings suspicious for CHF.
[2020-02-28] MEDS ORDERED: Magnesium 2 GM/50 ML BAG (IN WATER) ONE (14:56)
[2020-02-28 15:01] LABS: #Basophils 0.1 thou/uL (0.0-0.2); #Lymphocytes 0.7 thou/uL (1.20-3.40); #Monocytes 1.1 thou/uL (0.11-0.59); #Neutrophils 16.6 thou/uL (1.40-6.50); %Basophils 0.7 % (0.0-1.0); %Lymphocytes 3.8 % (21.0-51.0); %Monocytes 5.9 % (0.0-10.0); %Neutrophils 89.5 % (42.0-75.0); Hemoglobin 10.5 g/dL (12.0-16.0); Mean Corpuscular HGB CONC 30.3 g/dL (32.0-36.0); Mean Corpuscular Hemoglobin 24.6 pg (27.0-31.0); Mean Corpuscular Volume 81.3 fL (78.0-98.0); Mean Platelet Volume 7.1 fL (7.4-10.4); Platelet Count 459 thou/uL (130-400); RBC Distribution Width 17.9 % (11.5-14.5); Red Blood Cell (RBC) Count 4.25 mill/uL (4.20-5.40); White Blood Cell (WBC) Count 18.5 thou/uL (4.8-10.8)
[2020-02-28 15:21] LABS: ALT (SGPT) 7 U/L (8-55); AST (SGOT) 22 U/L (5-34); Albumin 3.6 g/dL (3.4-4.8); Alkaline Phosphatase 105 U/L (40-110); Anion Gap 17 mmol/L (10-20); BUN (Urea Nitrogen) 16 mg/dL (9.8-20.1); Bilirubin, Total 0.5 mg/dL (0.2-1.2); Calc. Creatinine Clearance 0 mL/min (70-130); Calcium 8.5 mg/dL (7.8-10.44); Carbon Dioxide 26 mmol/L (23-31); Chloride 102 mmol/L (98-107); Globulin 3.1 g/dL (2.4-3.5); Glucose 185 mg/dL (80-115); Potassium 4.6 mmol/L (3.5-5.1); Protein, Total 6.7 g/dL (6.0-8.3); Sodium 140 mmol/L (136-145)
[2020-02-28 15:44] LABS: CKMB 4.1 ng/mL (0-6.6)
[2020-02-28 15:54] LABS: SARS-CoV-2 NAA Rapid Test Not Detected (NotDetected)
[2020-02-28] MEDS ORDERED: Furosemide 20 MG/2 ML VIAL ONE (16:21)
[2020-02-28] MEDS ORDERED: Albuterol Sulfate 2.5 mg/3 ml Neb NEB PRN (16:32)
[2020-02-28] MEDS ORDERED: Ondansetron PF 4 MG/2 ML Vial IVP PRN (16:32)
[2020-02-28] MEDS ORDERED: Diltiazem 125 MG in Sodium Chloride 0.9% 100 ML IVPB SCH (16:45)
--- NOTE | 2020-02-28 17:24 | HP ---
PRIMARY CARE PROVIDER: Out of town. CHIEF COMPLAINT: "I thought I was going to ." HISTORY OF PRESENT ILLNESS: This is a 64-year-old female with history of hypertension, COPD, who presents to the emergency room with the above complaint. She states that for the past 3 weeks she has been weak, having difficulty breathing, and it reached the point that she could not do anything for herself. She used her breathing medication 3 times yesterday with some brief improvement, however, return of symptoms. The patient denies any precipitating or relieving factors. She does note that she has had chills, chest tightness, some nausea, and coughing. She denies any fevers or vomiting. She does smoke 2 packs of cigarettes per day and used marijuana this week. In the emergency room, the patient was found to be in atrial fibrillation with a rate of 145. She was given 20 mg of IV diltiazem followed by a 5 mg/hour drip, albuterol nebulizer 10 mg, 2 g of magnesium sulfate, started on BiPAP and hospitalist called for admission. ALLERGIES: NONE KNOWN. HOWEVER, IN THE COMPUTER, IT DOES STATE SULFA. CURRENT MEDICATIONS: The patient does not know her medications other than, 1. Albuterol nebulizers. 2. Symbicort. PAST MEDICAL HISTORY: 1. Hypertension. 2. COPD. 3. 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 PAST SURGICAL HISTORY: 1. Gastric bypass. 2. Cholecystectomy. 3. Hernia repair. 4. Hysterectomy. 5. Left elbow. 6. Bilateral shoulders. SOCIAL HISTORY: The patient used marijuana this week, smokes 2 packs per day and described herself as a chain smoker. She denies any alcohol. She lives with her son who is her surrogate decision maker and she is a full code. FAMILY HISTORY: Significant for a brother who of heart problems. REVIEW OF SYSTEMS: Positive for coughing, chills, chest tightness, nausea, and craving sweets. Negative for fevers, vomiting, or diarrhea. All remaining review of systems are reviewed and negative. PHYSICAL EXAMINATION: VITAL SIGNS: Blood pressure 131/81, pulse 105 on the diltiazem drip, respirations 22 on BiPAP, saturation 100%, temperature 98.7. Of note, highest respiratory rate is 31 here. GENERAL: She is awake, alert, able to answer questions appropriately with the BiPAP on. She is not in apparent distress. HEENT: Her pupils are equal and round. Tympanic membranes are translucent. Oral mucosa is dry. Lips appear dry and cracked. NECK: Supple, nontender. LYMPHATICS: No palpable cervical or supraclavicular lymphadenopathy. LUNGS: Short breaths with bilateral rales. No audible wheezing. HEART: Difficulty to discern. It does sound like she has a murmur. However, I am unable to characterize it due to the BiPAP. ABDOMEN: Soft. Present bowel sounds. Nontender, nondistended. EXTREMITIES: No pitting edema, clubbing, or cyanosis. SKIN: No visible rashes. NEUROLOGIC: No focal deficits. PSYCHIATRIC: Appears euthymic. VASCULAR: 2+ radial pulses. LABORATORY DATA: CBC; 18.5, 10.5, 34.5, 459. Blood gas; pH 7.32, pCO2 of 48.8, pO2 of 133, oxygen sat 95%. Renal panel; 140, 4.6, 102, 26, 16, 0.96, 185. LFTs are normal. Troponin 0.161. BNP 2509. Flu and COVID tests are negative. Chest x-ray personally reviewed, is consistent with fluid overload and CHF. EKG; initial one, atrial fibrillation with a rate of 165 and abnormal R-wave progression. IMPRESSION: 1. Atrial fibrillation with rapid ventricular response on presentation, currently rate controlled. 2. Congestive heart failure exacerbation, unknown type. 3. Chronic obstructive pulmonary disease with exacerbation. 4. Leukocytosis, likely secondary to the chronic obstructive pulmonary disease exacerbation given the productive cough and the chills. 5. Anemia, chronic, appears stable. 6. History of hypertension. 7. Tobacco abuse. 8. Marijuana abuse. PLAN: 1. Inpatient status in the [facility] to continue BiPAP therapy. 2. Cardiology consultation and Pulmonology consultation. 3. Continuing the diltiazem drip. Obtain echocardiogram. 4. For stroke risk reduction with the atrial fibrillation, we will start Lovenox with renal dosing. Requested that the pharmacy initiate this at 1 mcg/kg and the interval of q.12 hours or q.24 hours based on what is appropriate for her renal function. 5. Continuing gentle diuresis with Lasix as the patient is not normally on Lasix, can increase this if needed. The patient was to get the first dose in the emergency room per the resident physician taking care of her. 6. Holding on beta blockers as we are using IV diltiazem. 7. We will start low-dose aspirin. 8. For the COPD exacerbation, we will order IV steroids, scheduled DuoNeb q.4 hours, scheduled long-acting bronchodilator, and Levaquin to cover for infection. 9. For the anemia, we will evaluate with iron, ferritin, folate, folic acid and B12 levels, and monitor this given that she will be on full anticoagulation for stroke risk reduction. 10. Obtain an accurate list of her home medications. We will place a nurse request. P.r.n. nicotine patch. 11. DVT prophylaxis not indicated. She will be on full anticoagulation for stroke risk reduction with atrial fibrillation. 12. GI prophylaxis. Given that we are starting steroid, we will start an oral PPI. 13. Code status is full. Surrogate decision maker is her son. 14. Reviewed the plan of care with the patient who demonstrates understanding and agrees. No questions or further needs at the end of evaluation. 15. The patient is at high risk given age, comorbidities, and current presentation. Job ID: [id number] MTDD
[2020-02-28] MEDS: methylPREDNISolone Sod Succ 40 MG VIAL IVP SCH ×2 (17:27→23:59)
[2020-02-28 18:38] LABS: Troponin I 0.188 ng/mL (< 0.028)
[2020-02-28] MEDS: Arformoterol 15 MCG/2 ML NEB NEB SCH (19:39)
[2020-02-28] MEDS: Acetaminophen 325 MG TAB PO PRN (20:09)
[2020-02-28] MEDS: Melatonin 3 MG TAB PO PRN (20:09)
[2020-02-28] MEDS: Enoxaparin Sodium 60 MG/0.6 ML SYRINGE SC SCH (20:09)
[2020-02-28] MEDS: Temazepam 15 MG CAP PO SCH (21:26)
[2020-02-28 21:44] LABS: Troponin I 0.229 ng/mL (< 0.028)
[2020-02-29 04:04] LABS: #Lymphocytes 0.3 thou/uL (1.20-3.40); #Monocytes 0.1 thou/uL (0.11-0.59); #Neutrophils 7.8 thou/uL (1.40-6.50); %Basophils 0.2 % (0.0-1.0); %Lymphocytes 3.2 % (21.0-51.0); %Monocytes 1.3 % (0.0-10.0); %Neutrophils 95.3 % (42.0-75.0); Hemoglobin 8.8 g/dL (12.0-16.0); Mean Corpuscular Hemoglobin 24.7 pg (27.0-31.0); Mean Corpuscular Volume 82.5 fL (78.0-98.0); Mean Platelet Volume 7.2 fL (7.4-10.4); Platelet Count 357 thou/uL (130-400); Red Blood Cell (RBC) Count 3.54 mill/uL (4.20-5.40); White Blood Cell (WBC) Count 8.2 thou/uL (4.8-10.8)
[2020-02-29 04:15] LABS: Anion Gap 16 mmol/L (10-20); BUN (Urea Nitrogen) 21 mg/dL (9.8-20.1); Calc. Creatinine Clearance 52 mL/min (70-130); Calcium 8.2 mg/dL (7.8-10.44); Carbon Dioxide 24 mmol/L (23-31); Chloride 100 mmol/L (98-107); Glucose 243 mg/dL (80-115); Iron 15 ug/dL (50-170); Potassium 4.1 mmol/L (3.5-5.1); Sodium 136 mmol/L (136-145)
[2020-02-29 05:11] LABS: Ferritin 14.23 ng/mL (10-291)
[2020-02-29] MEDS: Furosemide 20 MG/2 ML VIAL SLOW IVP SCH ×2 (05:32→13:35)
[2020-02-29] MEDS: methylPREDNISolone Sod Succ 40 MG VIAL IVP SCH ×3 (05:36→17:13)
[2020-02-29] MEDS: Nicotine 21 MG PATCH TD PRN (05:38)
[2020-02-29] MEDS: Arformoterol 15 MCG/2 ML NEB NEB SCH ×2 (05:47→19:35)
[2020-02-29] MEDS: Enoxaparin Sodium 60 MG/0.6 ML SYRINGE SC SCH ×2 (07:54→21:20)
[2020-02-29] MEDS: Aspirin Chewable 81 MG TAB PO SCH (07:54)
[2020-02-29] MEDS ORDERED: Dextrose 50% Abboject 50 ML SYRINGE SLOW IVP PRN (08:48)
[2020-02-29] MEDS ORDERED: HumaLOG 300 UNITS/3 ML VIAL SC PRN (08:48)
[2020-02-29] MEDS ORDERED: Dextrose 5% in Water 1,000 ML IV PRN (08:48)
--- NOTE | 2020-02-29 08:50 | PDOC.HOSPP ---
- Subjective Encounter Date: 02/29/20 (f/u a fib with rvr) Encounter Time: 08:47 Subjective: Pt reports today that she is feeling better - her breathing is easier but does not feel normal. She denies any chest pain/n/v. She c/o headache - reports she chronically has them and takes tylenol at home. - Objective Vital Signs & Weight: Vital Signs (12 hours) Temp Pulse Resp Pulse Ox 02/29/20 07:04 99.2 F 02/29/20 05:45 100 22 H 100 02/29/20 04:00 98.2 F 02/29/20 01:05 91 18 100 02/29/20 00:00 97.9 F Weight Weight 113 lb 12.8 oz Most Recent Monitor Data Heart Rate from ECG 100 NIBP 129/77 NIBP BP-Mean 94 Respiration from ECG 26 SpO2 98 I&O: 02/28/20 02/29/20 03/01/20 06:59 06:59 06:59 Intake Total 690 Output Total 1800 Balance -1110 Result Diagrams: 02/29/20 03:19 02/29/20 03:19 EKG Reviewed by me: Yes (tele - a fib with rates in the 100's) Hospitalist ROS - Medication Medications: Active Medications Generic Name Dose Route Start Last Admin Trade Name Freq PRN Reason Stop Dose Admin Acetaminophen 650 mg 02/28/20 16:32 02/28/20 20:09 Acetaminophen 325 Mg Tab PO 650 mg Q4H PRN Administration Headache/Fever/Mild Pain (1-3) Albuterol/Ipratropium 3 ml 02/28/20 19:00 02/29/20 05:45 Ipratropium/Albuterol Sulfate 3 Ml Neb NEB 3 ml [id number] RANDI Administration Arformoterol Tartrate 15 mcg 02/28/20 18:30 02/29/20 05:47 Arformoterol 15 Mcg/2 Ml Neb NEB 15 mcg BID-RT RANDI Administration Aspirin 81 mg 02/29/20 09:00 02/29/20 07:54 Aspirin Chewable 81 Mg Tab PO 81 mg DAILY RANDI Administration Enoxaparin Sodium 50 mg 02/28/20 21:00 02/29/20 07:54 Enoxaparin Sodium 60 Mg/0.6 Ml Syringe SC 50 mg 0900,2100 RANDI Administration Furosemide 20 mg 02/29/20 06:00 02/29/20 05:32 Furosemide 20 Mg/2 Ml Vial SLOW IVP 20 mg 0600,1400 RANDI Administration Levofloxacin 750 mg/ Device 150 mls @ 100 mls/hr 02/28/20 18:00 02/28/20 17:27 IVPB 150 mls Q24HR RANDI Administration Influenza Virus Vaccine Quadrival 240 mcg 02/29/20 09:00 02/29/20 07:36 Flu Vacc [id number](65yr Up)/Pf 240 Mcg/0.7 Ml Syringe IM 02/29/20 09:01 Not Given .ONCE ONE Melatonin 3 mg 02/28/20 19:40 02/28/20 20:09 Melatonin 3 Mg Tab PO 3 mg HS PRN Administration Insomnia Methylprednisolone Sodium Succinate 40 mg 02/28/20 18:00 02/29/20 05:36 Methylprednisolone Sod Succ 40 Mg Vial IVP 40 mg Q6HR RANDI Administration Nicotine 21 mg 02/28/20 16:32 02/29/20 05:38 Nicotine 21 Mg Patch TD 21 mg Q24H PRN Administration Smoking Cessation Pantoprazole Sodium 40 mg 02/28/20 21:00 02/28/20 20:09 Pantoprazole 40 Mg Tab PO 40 mg HS RANDI Administration Pneumococcal Polyvalent Vaccine 0.5 ml 02/29/20 09:00 02/29/20 07:36 Pneumococcal 23 "Pneumovax" 0.5 Ml Vial IM 02/29/20 09:01 Not Given .ONCE ONE Temazepam 15 mg 02/28/20 21:00 02/28/20 21:26 Temazepam 15 Mg Cap PO 15 mg HS RANDI Administration - Exam General Appearance: NAD General - other findings: cachectic appearing Heart: irregular Heart - other findings: 2-3/6 systolic murmur Respiratory: no wheezes, no rales, no ronchi Respiratory - other findings: improved air movement, diminished at the bases Gastrointestinal: soft, non-tender, non-distended Extremities: no cyanosis, no clubbing, no edema Psychiatric: normal affect Hosp A/P (1) Atrial fibrillation with RVR Code(s): I48.91 - UNSPECIFIED ATRIAL FIBRILLATION Status: Acute (2) Heart failure Code(s): I50.9 - HEART FAILURE, UNSPECIFIED Status: Acute Qualifiers: Heart failure type: unspecified (3) COPD exacerbation Code(s): J44.1 - CHRONIC OBSTRUCTIVE PULMONARY DISEASE W (ACUTE) EXACERBATION Status: Acute (4) Anemia Code(s): D64.9 - ANEMIA, UNSPECIFIED Status: Chronic Qualifiers: Anemia type: unspecified type Qualified Code(s): D64.9 - Anemia, unspecified (5) Hypertension Code(s): I10 - ESSENTIAL (PRIMARY) HYPERTENSION Status: Chronic Qualifiers: Hypertension type: essential hypertension Qualified Code(s): I10 - Essential (primary) hypertension (6) Tobacco abuse Code(s): Z72.0 - TOBACCO USE Status: Chronic (7) Elevated blood sugar Code(s): R73.9 - HYPERGLYCEMIA, UNSPECIFIED Status: Acute - Plan A Fib with RVR - now rate controlled on diltiazem gtt - Cardiology consult - echo today - continue diltiazem gtt for now - full dose lovenox for stroke risk reduction Heart failure - likely rate related - unknown type - echo - gentle diuresis with IV lasix COPD with exacerbation - on IV steroids - continue - Scheduled duonebs and LABA - bipap if needed - leukocytosis resolved - continue levaquin, will change to PO dosing ? 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
[2020-02-29] MEDS ORDERED: FLU VACC QS2020-21(65YR UP)/PF 240 MCG/0.7 ML SYRINGE IM ONE (09:00)
[2020-02-29] MEDS ORDERED: Iron Sucrose Complex 200 MG in Sodium Chloride 0.9% 100 ML IVPB SCH (09:00)
[2020-02-29] MEDS ORDERED: Cyanocobalamin 1000 MCG/ML VIAL IM SCH (09:00)
[2020-02-29] MEDS: Acetaminophen 325 MG TAB PO PRN ×2 (09:27→13:34)
[2020-02-29] MEDS: Cyanocobalamin (Vitamin B-12) 1,000 MCG TAB PO SCH (09:28)
[2020-02-29] MEDS ORDERED: Iron, Sodium Ferric Gluconate 250 MG in Sodium Chloride 0.9% 100 ML IVPB SCH (09:30)
[2020-02-29] MEDS ORDERED: Communication Order-Pharmacy FS SCH (13:45)
[2020-02-29] MEDS: Melatonin 3 MG TAB PO PRN (21:19)
[2020-02-29] MEDS: Temazepam 15 MG CAP PO SCH (21:19)
[2020-03-01] MEDS: methylPREDNISolone Sod Succ 40 MG VIAL IVP SCH ×3 (00:28→11:51)
[2020-03-01 05:10] LABS: #Lymphocytes 0.2 thou/uL (1.20-3.40); #Monocytes 0.4 thou/uL (0.11-0.59); #Neutrophils 12.1 thou/uL (1.40-6.50); %Basophils 0.1 % (0.0-1.0); %Lymphocytes 1.8 % (21.0-51.0); %Monocytes 2.8 % (0.0-10.0); %Neutrophils 95.3 % (42.0-75.0); Hemoglobin 9.5 g/dL (12.0-16.0); Mean Corpuscular HGB CONC 30.6 g/dL (32.0-36.0); Mean Corpuscular Hemoglobin 25.3 pg (27.0-31.0); Mean Corpuscular Volume 82.8 fL (78.0-98.0); Mean Platelet Volume 7.1 fL (7.4-10.4); Platelet Count 394 thou/uL (130-400); RBC Distribution Width 17.8 % (11.5-14.5); Red Blood Cell (RBC) Count 3.75 mill/uL (4.20-5.40); White Blood Cell (WBC) Count 12.7 thou/uL (4.8-10.8)
[2020-03-01 05:32] LABS: Anion Gap 14 mmol/L (10-20); BUN (Urea Nitrogen) 30 mg/dL (9.8-20.1); Calc. Creatinine Clearance 40 mL/min (70-130); Calcium 8.6 mg/dL (7.8-10.44); Carbon Dioxide 26 mmol/L (23-31); Chloride 99 mmol/L (98-107); Glucose 156 mg/dL (80-115); Potassium 4.4 mmol/L (3.5-5.1); Sodium 135 mmol/L (136-145)
[2020-03-01] MEDS: Sodium Chloride 0.9% 1,000 ML IV SCH ×2 (05:59→18:07)
[2020-03-01] MEDS: Arformoterol 15 MCG/2 ML NEB NEB SCH ×2 (07:08→18:20)
[2020-03-01] MEDS ORDERED: Midazolam HCl 2 mg/2 ml Vial ONE (08:31)
[2020-03-01] MEDS ORDERED: Fentanyl 100 MCG/2 ML VIAL ONE (08:31)
[2020-03-01] MEDS ORDERED: Sodium Chloride 0.9% 200 ML IV PRN (09:14)
[2020-03-01] MEDS ORDERED: Nitroglycerin 0.4 MG TAB (25 Tab Bottle) SL PRN (09:14)
[2020-03-01] MEDS ORDERED: Sodium Chloride 0.9% 1,000 ML IV SCH (09:15)
[2020-03-01] MEDS ORDERED: Iopamidol 370 76% 100 ML VIAL ONE (09:26)
[2020-03-01] MEDS: Aspirin Chewable 81 MG TAB PO SCH (10:20)
[2020-03-01] MEDS: Cyanocobalamin (Vitamin B-12) 1,000 MCG TAB PO SCH (10:20)
[2020-03-01] MEDS: Furosemide 20 MG/2 ML VIAL SLOW IVP SCH (10:24)
[2020-03-01] MEDS: HumaLOG 300 UNITS/3 ML VIAL SC PRN ×2 (11:51→17:43)
[2020-03-01] MEDS: traMADol HCl 50 MG TAB PO PRN (12:42)
--- NOTE | 2020-03-01 13:07 | PDOC.HOSPP ---
- Subjective Encounter Date: 03/01/20 (f/u resp failure) Encounter Time: 13:05 Subjective: Pt admitted 2 days ago for shortness of breath attributed to a fib with RVR, new onset heart failure, and copd with exacerbation. She was on bipap therapy and is now either on room air or low rate NC. Pt reports her breathing comes/goes but is overall improved compared to admission. She c/o heartburn sx, takes an otc med at home. She also c/o pain all over c/w known arthritis - takes otc meds and occasionally something stronger. She denies any other new sx. 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 - Objective Vital Signs & Weight: Vital Signs (12 hours) Temp Pulse Resp BP Pulse Ox 03/01/20 11:43 97.7 F 94 16 136/78 95 03/01/20 07:30 98.1 F 90 20 137/71 97 03/01/20 07:07 87 18 97 03/01/20 05:49 98.4 F 83 18 132/73 99 Weight Weight 120 lb 8 oz Most Recent Monitor Data Heart Rate from ECG 104 NIBP 124/81 NIBP BP-Mean 95 Respiration from ECG 26 SpO2 96 I&O: 02/29/20 03/01/20 03/02/20 06:59 06:59 06:59 Intake Total 690 1700 Output Total 1800 500 Balance -1110 1200 Result Diagrams: 03/01/20 04:34 03/01/20 04:34 Additional Labs: Accuchecks 03/01/20 03/01/20 02/29/20 10:46 05:52 17:04 POC Glucose 212 H 173 H 145 H EKG Reviewed by me: Yes (tele - a fib with rates 90-120's, occ PAT) Hospitalist ROS - Medication Medications: Active Medications Generic Name Dose Route Start Last Admin Trade Name Freq PRN Reason Stop Dose Admin Acetaminophen 650 mg 02/28/20 16:32 02/29/20 13:34 Acetaminophen 325 Mg Tab PO 650 mg Q4H PRN Administration Headache/Fever/Mild Pain (1-3) Albuterol/Ipratropium 3 ml 02/28/20 19:00 03/01/20 07:07 Ipratropium/Albuterol Sulfate 3 Ml Neb NEB 3 ml [id number] RANDI Administration Arformoterol Tartrate 15 mcg 02/28/20 18:30 03/01/20 07:08 Arformoterol 15 Mcg/2 Ml Neb NEB 15 mcg BID-RT RANDI Administration Aspirin 81 mg 02/29/20 09:00 03/01/20 10:20 Aspirin Chewable 81 Mg Tab PO 81 mg DAILY RANDI Administration Cyanocobalamin 1,000 mcg 02/29/20 09:00 03/01/20 10:20 Cyanocobalamin (Vitamin B-12) 1,000 Mcg Tab PO 1,000 mcg DAILY RANDI Administration Sodium Chloride 1,000 mls @ 100 mls/hr 03/01/20 06:00 03/01/20 05:59 Normal Saline 0.9% IV 1,000 mls .Q10H RANDI Administration Sodium Chloride 1,000 mls @ 125 mls/hr 03/01/20 09:15 03/01/20 10:22 Normal Saline 0.9% IV 03/01/20 13:16 1,000 mls .Q8H RANDI Administration Insulin Human Lispro 0 units 02/29/20 08:48 03/01/20 11:51 Humalog 300 Units/3 Ml Vial SC 3 unit .MILD SLIDING SCALE PRN Administration Mild Correctional Scale Levofloxacin 750 mg 02/29/20 18:00 02/29/20 17:13 Levofloxacin 750 Mg Tab PO 750 mg 1800 RANDI Administration Melatonin 3 mg 02/28/20 19:40 02/29/20 21:19 Melatonin 3 Mg Tab PO 3 mg HS PRN Administration Insomnia Methylprednisolone Sodium Succinate 40 mg 02/28/20 18:00 03/01/20 11:51 Methylprednisolone Sod Succ 40 Mg Vial IVP 40 mg Q6HR RANDI Administration Nicotine 21 mg 02/28/20 16:32 02/29/20 05:38 Nicotine 21 Mg Patch TD 21 mg Q24H PRN Administration Smoking Cessation Pantoprazole Sodium 40 mg 02/28/20 21:00 02/29/20 21:19 Pantoprazole 40 Mg Tab PO 40 mg HS RANDI Administration Sodium Chloride 10 ml 02/29/20 09:00 03/01/20 10:20 Flush - Normal Saline 10 Ml Syringe IVF 10 ml Q12HR RANDI Administration Sodium Chloride 10 ml 02/29/20 09:00 03/01/20 00:28 Flush - Normal Saline 10 Ml Syringe IVF 10 ml PRN PRN Administration Saline Flush Temazepam 15 mg 02/28/20 21:00 02/29/20 21:19 Temazepam 15 Mg Cap PO 15 mg HS RANDI Administration Tramadol HCl 50 mg 03/01/20 11:51 03/01/20 12:42 Tramadol Hcl 50 Mg Tab PO 50 mg Q6H PRN Administration Moderate Pain (4-6) - Exam General Appearance: NAD Heart: irregular, III/IV Respiratory: no wheezes, no rales, no ronchi Respiratory - other findings: improved air movement compared to yesterday Gastrointestinal: soft, non-tender, non-distended, normal bowel sounds Extremities: no cyanosis, no clubbing, no edema Psychiatric: normal affect Hosp A/P (1) Atrial fibrillation with RVR Code(s): I48.91 - UNSPECIFIED ATRIAL FIBRILLATION Status: Acute (2) Heart failure Code(s): I50.9 - HEART FAILURE, UNSPECIFIED Status: Acute Qualifiers: Heart failure type: combined systolic and diastolic (3) COPD exacerbation Code(s): J44.1 - CHRONIC OBSTRUCTIVE PULMONARY DISEASE W (ACUTE) EXACERBATION Status: Acute (4) Anemia Code(s): D64.9 - ANEMIA, UNSPECIFIED Status: Chronic Qualifiers: Anemia type: unspecified type Qualified Code(s): D64.9 - Anemia, unspecified (5) Hypertension Code(s): I10 - ESSENTIAL (PRIMARY) HYPERTENSION Status: Chronic Qualifiers: Hypertension type: essential hypertension Qualified Code(s): I10 - Essential (primary) hypertension (6) Tobacco abuse Code(s): Z72.0 - TOBACCO USE Status: Chronic (7) Elevated blood sugar Code(s): R73.9 - HYPERGLYCEMIA, UNSPECIFIED Status: Acute - Plan A Fib with RVR - now rate controlled on diltiazem gtt - Cardiology consult appreciated - s/p cath - echo shows EF 35-40% - will collaborate with Cardiology on rate controlling meds given the COPD with exacerbation Start on short acting diltiazem for now. - mild worsening of renal function and s/p contrast today with Cath - hold on denny-inhibitor. - no further indication for diuresis Heart failure - combined systolic and diastolic on echo - meds per Cardiology COPD with exacerbation - improved - change to oral steroids tomorrow - Continue scheduled duonebs and LABA - leukocytosis resolved - plan for 5 day total course of Levaquin - will ask Pharmacy to place stop date ? UTI - reviewed and no culture was performed. Plan on 5 day course of levaquin for COPD exacerbation. Will need outpatient f/u for this if dysuria returns Hypertension history- bp's normal, will need to be started on meds for heart Anemia - acute on chronic in a patient with history of gastric bypass - check FOBT - Iron deficient - s/p dose of IV iron yesterday. Will order another dose for tomorrow and will need outpatient follow up for this. - Vitamin b12 deficient - IM dose of vitamin b12 yesterday and oral replacement ordered. Will need outpatient follow up. 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 Was on full dose lovenox - d/c for cath today. gi prophy - on PPI with steroids code status full reviewed plan of care with patient, no questions or further needs at end of eval pt remains at high risk in current condition
--- NOTE | 2020-03-01 17:13 | PDOC.BPN ---
- Brief Progress Note Encounter Date: 03/01/20 Encounter Time: 17:12 Informed by RN that pt having pAT with rates into the 160's and having longer episodes. Will resume diltiazem gtt at 5 mg/hour with plan to start oral meds in the morning.
[2020-03-01] MEDS: Diltiazem 125 MG in Sodium Chloride 0.9% 100 ML IVPB SCH (18:47)
[2020-03-01] MEDS ORDERED: Labetalol HCl 100 MG/20 ML VIAL ONE (19:11)
[2020-03-01] MEDS: Acetaminophen/Codeine 30-300mg Tablet PO PRN (20:19)
[2020-03-01] MEDS: Nicotine 21 MG PATCH TD PRN (20:21)
[2020-03-01] MEDS: Temazepam 15 MG CAP PO SCH (22:02)
[2020-03-02] MEDS: Acetaminophen/Codeine 30-300mg Tablet PO PRN ×3 (03:25→21:30)
[2020-03-02 04:43] LABS: #Lymphocytes 0.6 thou/uL (1.20-3.40); #Monocytes 1.1 thou/uL (0.11-0.59); #Neutrophils 11.5 thou/uL (1.40-6.50); %Basophils 0.1 % (0.0-1.0); %Lymphocytes 4.1 % (21.0-51.0); %Monocytes 8.4 % (0.0-10.0); %Neutrophils 87.3 % (42.0-75.0); Hemoglobin 9.1 g/dL (12.0-16.0); Mean Corpuscular HGB CONC 29.7 g/dL (32.0-36.0); Mean Corpuscular Hemoglobin 24.4 pg (27.0-31.0); Mean Corpuscular Volume 82.1 fL (78.0-98.0); Mean Platelet Volume 6.8 fL (7.4-10.4); Platelet Count 399 thou/uL (130-400); RBC Distribution Width 18.1 % (11.5-14.5); Red Blood Cell (RBC) Count 3.73 mill/uL (4.20-5.40); White Blood Cell (WBC) Count 13.2 thou/uL (4.8-10.8)
[2020-03-02 04:56] LABS: Anion Gap 12 mmol/L (10-20); BUN (Urea Nitrogen) 24 mg/dL (9.8-20.1); Calc. Creatinine Clearance 60 mL/min (70-130); Calcium 8.4 mg/dL (7.8-10.44); Carbon Dioxide 28 mmol/L (23-31); Chloride 101 mmol/L (98-107); Glucose 111 mg/dL (80-115); Potassium 4.5 mmol/L (3.5-5.1); Sodium 136 mmol/L (136-145)
[2020-03-02] MEDS: Arformoterol 15 MCG/2 ML NEB NEB SCH ×2 (06:42→19:29)
[2020-03-02] MEDS: Aspirin Chewable 81 MG TAB PO SCH (08:45)
[2020-03-02] MEDS: predniSONE 20 MG TAB PO SCH (08:46)
[2020-03-02] MEDS: Losartan 25 MG TAB PO SCH (08:46)
[2020-03-02] MEDS: Carvedilol 3.125 MG TAB PO SCH ×2 (08:46→16:56)
[2020-03-02] MEDS: Cyanocobalamin (Vitamin B-12) 1,000 MCG TAB PO SCH (08:46)
[2020-03-02] MEDS ORDERED: Iron, Sodium Ferric Gluconate 125 MG in Sodium Chloride 0.9% 100 ML IVPB SCH (09:00)
--- NOTE | 2020-03-02 11:01 | PQF ---
CLINICAL DOCUMENTATION CLARIFICATION FORM: Dear Dr. JEANE HERNANDEZ Date: 03-02-20 Please exercise your independent, professional judgment in responding to the clarification form. Clinical indicators are provided on the bottom of this form for your review. Please check appropriate box(es): [ ] Acute Renal Failure (ARF) / Acute Kidney Injury (VERA) [ XX ] Insignificant Lab Values [ ] Other diagnosis [ ] Unable to determine In addition, please specify: Present on Admission (POA): [ ] Yes [ ] No [ ] Unable to determine For continuity of documentation, please document condition throughout progress notes and discharge summary. Thank You. To be completed by CDI/Coding staff for physician review: CLINICAL INDICATORS - SIGNS / SYMPTOMS / LABS / RESULTS AND LOCATION IN MR: GFR: 02-28-20: 58 02-29-20: 64 03-01-20: 48 03-02-20: 71 CREATININE: 02-28-20: 0.96 03-01-20: 1.13 03-02-20: 0.81 RISK FACTORS / RESULTS AND LOCATION IN MR: ER NOTES: 02-28-20: FUROSEMIDE INJ TREATMENTS / RESULTS AND LOCATION IN MR: MAR: 03-01-20: NS IVF [employer] Guidelines for CKD Staging Stage I Kidney damage with normal or increased GFR GFR > 90 Stage II Kidney damage with mildly decreased GFR GFR 60-89 Stage III Kidney damage with moderately decreased GFR GFR 30-59 Stage IV Kidney damage with severely decreased GFR GFR 16-29 Stage V Kidney failure GFR<15 ESRD End Stage Renal Disease On dialysis Acute Renal Failure/Acute Kidney Failure defined as: Increases in SCr by (>) 0.3 mg/dl within 48 hours OR- Increases in SCr by (>) 1.5 times baseline, known or presumed to have occurred within the prior 7 days OR- Urine volume < 0.5 ml/kg/hour for 6 hours (KDIGO supplement 2012 for RIFLE/GEO criteria) CDS Signature: Katrin Chi Phone #: [phone] Date: 03-02-20 This is a permanent part MTDD
--- NOTE | 2020-03-02 15:29 | PDOC.HOSPP ---
- Subjective Encounter Date: 03/02/20 Encounter Time: 15:27 Subjective: Ms. Hathaway was seen today in follow-up of COPD exacerbation. She says she has been having difficulty with her breathing most of the day. She believes it is due to COPD. - Objective Vital Signs & Weight: Vital Signs (12 hours) Temp Pulse Resp BP Pulse Ox 03/02/20 12:00 98.5 F 74 16 106/69 99 03/02/20 07:45 98.3 F 106 H 18 156/84 H 98 03/02/20 06:42 91 16 10 L 03/02/20 03:35 98.3 F 106 H 22 H 147/75 H 92 L Weight Admit Weight 115 lb Weight 119 lb Most Recent Monitor Data Heart Rate from ECG 104 NIBP 124/81 NIBP BP-Mean 95 Respiration from ECG 26 SpO2 96 I&O: 03/01/20 03/02/20 03/03/20 06:59 06:59 06:59 Intake Total 1700 1635 Output Total 500 800 Balance 1200 835 Result Diagrams: 03/02/20 04:27 03/02/20 04:27 Additional Labs: Accuchecks 03/02/20 03/01/20 03/01/20 05:25 20:13 16:33 POC Glucose 103 H 131 H 167 H Hospitalist ROS - Medication Medications: Active Medications Generic Name Dose Route Start Last Admin Trade Name Freq PRN Reason Stop Dose Admin Acetaminophen 650 mg 02/28/20 16:32 02/29/20 13:34 Acetaminophen 325 Mg Tab PO 650 mg Q4H PRN Administration Headache/Fever/Mild Pain (1-3) Acetaminophen/Codeine Phosphate 2 tab 03/01/20 09:14 03/02/20 08:47 Acetaminophen/Codeine 30-300mg Tablet PO 2 tab Q4H PRN Administration Moderate Pain (4-6) Albuterol/Ipratropium 3 ml 02/28/20 19:00 03/02/20 13:48 Ipratropium/Albuterol Sulfate 3 Ml Neb NEB 3 ml [id number] RANDI Administration Arformoterol Tartrate 15 mcg 02/28/20 18:30 03/02/20 06:42 Arformoterol 15 Mcg/2 Ml Neb NEB 15 mcg BID-RT RANDI Administration Aspirin 81 mg 02/29/20 09:00 03/02/20 08:45 Aspirin Chewable 81 Mg Tab PO 81 mg DAILY RANDI Administration Carvedilol 3.125 mg 03/02/20 08:00 03/02/20 08:46 Carvedilol 3.125 Mg Tab PO 3.125 mg BID-WM RANDI Administration Cyanocobalamin 1,000 mcg 02/29/20 09:00 03/02/20 08:46 Cyanocobalamin (Vitamin B-12) 1,000 Mcg Tab PO 1,000 mcg DAILY RANDI Administration Diltiazem HCl 125 mg/ Sodium 125 mls @ 5 mls/hr 03/01/20 17:15 03/01/20 18:47 Chloride IVPB 125 mls INF RANDI Administration Protocol 5 MG/HR Insulin Human Lispro 0 units 02/29/20 08:48 03/01/20 17:43 Humalog 300 Units/3 Ml Vial SC 2 unit .MILD SLIDING SCALE PRN Administration Mild Correctional Scale Levofloxacin 750 mg 02/29/20 18:00 03/01/20 17:42 Levofloxacin 750 Mg Tab PO 03/03/20 18:01 750 mg 1800 RANDI Administration Losartan Potassium 25 mg 03/02/20 09:00 03/02/20 08:46 Losartan 25 Mg Tab PO 25 mg DAILY RANDI Administration Melatonin 3 mg 02/28/20 19:40 02/29/20 21:19 Melatonin 3 Mg Tab PO 3 mg HS PRN Administration Insomnia Nicotine 21 mg 02/28/20 16:32 03/01/20 20:21 Nicotine 21 Mg Patch TD 21 mg Q24H PRN Administration Smoking Cessation Pantoprazole Sodium 40 mg 02/28/20 21:00 03/01/20 22:02 Pantoprazole 40 Mg Tab PO 40 mg HS RANDI Administration Prednisone 40 mg 03/02/20 08:00 03/02/20 08:46 Prednisone 20 Mg Tab PO 40 mg QAM-WM RANDI Administration Sodium Chloride 10 ml 02/29/20 09:00 03/02/20 08:47 Flush - Normal Saline 10 Ml Syringe IVF 10 ml Q12HR RANDI Administration Sodium Chloride 10 ml 02/29/20 09:00 03/01/20 22:02 Flush - Normal Saline 10 Ml Syringe IVF 10 ml PRN PRN Administration Saline Flush Temazepam 15 mg 02/28/20 21:00 03/01/20 22:02 Temazepam 15 Mg Cap PO 15 mg HS RANDI Administration Tramadol HCl 50 mg 03/01/20 11:51 03/01/20 12:42 Tramadol Hcl 50 Mg Tab PO 50 mg Q6H PRN Administration Moderate Pain (4-6) - Exam Eye: PERRL, anicteric sclera Heart: RRR, no murmur, no gallops, no rubs, normal peripheral pulses Respiratory: wheezes (very faint wheezing , and decreased air movement) Gastrointestinal: soft, non-tender, non-distended, normal bowel sounds, no palpable masses Extremities: no cyanosis, 1+ LE edema Hosp A/P (1) Acute on chronic respiratory failure with hypoxemia Code(s): J96.21 - ACUTE AND CHRONIC RESPIRATORY FAILURE WITH HYPOXIA Status: Acute (2) Atrial fibrillation with RVR Code(s): I48.91 - UNSPECIFIED ATRIAL FIBRILLATION Status: Acute (3) COPD exacerbation Code(s): J44.1 - CHRONIC OBSTRUCTIVE PULMONARY DISEASE W (ACUTE) EXACERBATION Status: Acute (4) Depression Code(s): F32.9 - MAJOR DEPRESSIVE DISORDER, SINGLE EPISODE, UNSPECIFIED Status: Chronic (5) Tobacco abuse Code(s): Z72.0 - TOBACCO USE Status: Chronic (6) Systolic heart failure Code(s): I50.20 - UNSPECIFIED SYSTOLIC (CONGESTIVE) HEART FAILURE Status: Acute - Plan * Acute on chronic respiratory failure due to COPD exacerbation- will give an additional dose of steroid now. Offer albuterol IH to the bedside * Continue Levaquin * AFIB- continue Cardizem and Carvediolol * HTN- blood pressure is stable * Systolic heart failure- EF is 35-40%- Will defer to Cardiology
[2020-03-02] MEDS ORDERED: methylPREDNISolone Sod Succ 40 MG VIAL IVP SCH ×2 (15:45→16:00)
[2020-03-02] MEDS: Acetaminophen 325 MG TAB PO PRN (17:50)
[2020-03-02] MEDS: HumaLOG 300 UNITS/3 ML VIAL SC PRN (17:50)
[2020-03-02] MEDS: Albuterol Sulfate 2.5 mg/3 ml Neb NEB SCH (19:27)
[2020-03-02] MEDS: Diltiazem 125 MG in Sodium Chloride 0.9% 100 ML IVPB SCH (20:17)
[2020-03-02] MEDS: Temazepam 15 MG CAP PO SCH (21:30)
[2020-03-03] MEDS: Melatonin 3 MG TAB PO PRN ×2 (03:34→20:50)
[2020-03-03 05:42] LABS: Anion Gap 13 mmol/L (10-20); BUN (Urea Nitrogen) 25 mg/dL (9.8-20.1); Calc. Creatinine Clearance 72 mL/min (70-130); Carbon Dioxide 25 mmol/L (23-31); Chloride 100 mmol/L (98-107); Glucose 128 mg/dL (80-115); Potassium 4.3 mmol/L (3.5-5.1); Sodium 134 mmol/L (136-145)
[2020-03-03] MEDS: Arformoterol 15 MCG/2 ML NEB NEB SCH ×2 (07:47→20:14)
[2020-03-03] MEDS: Albuterol Sulfate 2.5 mg/3 ml Neb NEB SCH ×4 (07:48→20:13)
[2020-03-03] MEDS: Carvedilol 3.125 MG TAB PO SCH ×2 (08:54→15:46)
[2020-03-03] MEDS: Losartan 25 MG TAB PO SCH (08:54)
[2020-03-03] MEDS: predniSONE 20 MG TAB PO SCH (08:54)
[2020-03-03] MEDS: Cyanocobalamin (Vitamin B-12) 1,000 MCG TAB PO SCH (08:54)
[2020-03-03] MEDS: Aspirin Chewable 81 MG TAB PO SCH (08:54)
--- NOTE | 2020-03-03 10:52 | PDOC.HOSPP ---
- Subjective Encounter Date: 03/03/20 Encounter Time: 10:46 Subjective: still has episodic sob, relates has O2 at home - Objective Vital Signs & Weight: Vital Signs (12 hours) Temp Pulse Resp BP Pulse Ox 03/03/20 10:37 91 18 94 L 03/03/20 07:47 91 20 96 03/03/20 07:41 98.3 F 90 17 156/91 H 95 03/03/20 03:13 97.4 F L 93 22 H 143/83 H 95 03/03/20 00:10 89 139/79 Weight Admit Weight 115 lb Weight 126 lb 9.6 oz Most Recent Monitor Data Heart Rate from ECG 104 NIBP 124/81 NIBP BP-Mean 95 Respiration from ECG 26 SpO2 96 I&O: 03/02/20 03/03/20 03/04/20 06:59 06:59 06:59 Intake Total 1635 1386.9 Output Total 800 400 Balance 835 986.9 Result Diagrams: 03/02/20 04:27 03/03/20 05:06 Additional Labs: Accuchecks 03/03/20 03/02/20 03/02/20 05:32 21:05 16:45 POC Glucose 115 H 211 H 169 H 03/02/20 11:14 POC Glucose 132 H Hospitalist ROS - Medication Medications: Active Medications Generic Name Dose Route Start Last Admin Trade Name Freq PRN Reason Stop Dose Admin Acetaminophen 650 mg 02/28/20 16:32 03/02/20 17:50 Acetaminophen 325 Mg Tab PO 650 mg Q4H PRN Administration Headache/Fever/Mild Pain (1-3) Acetaminophen/Codeine Phosphate 2 tab 03/01/20 09:14 03/02/20 21:30 Acetaminophen/Codeine 30-300mg Tablet PO 2 tab Q4H PRN Administration Moderate Pain (4-6) Albuterol Sulfate 2.5 mg 03/02/20 19:00 03/03/20 10:37 Albuterol Sulfate 2.5 Mg/3 Ml Neb NEB 2.5 mg QID-RT RANDI Administration Arformoterol Tartrate 15 mcg 02/28/20 18:30 03/03/20 07:47 Arformoterol 15 Mcg/2 Ml Neb NEB 15 mcg BID-RT RANDI Administration Aspirin 81 mg 02/29/20 09:00 12/30/20 08:54 Aspirin Chewable 81 Mg Tab PO 81 mg DAILY RANDI Administration Carvedilol 3.125 mg 03/02/20 08:00 03/03/20 08:54 Carvedilol 3.125 Mg Tab PO 3.125 mg BID-WM RANDI Administration Cyanocobalamin 1,000 mcg 02/29/20 09:00 03/03/20 08:54 Cyanocobalamin (Vitamin B-12) 1,000 Mcg Tab PO 1,000 mcg DAILY RANDI Administration Diltiazem HCl 125 mg/ Sodium 125 mls @ 5 mls/hr 03/01/20 17:15 03/02/20 20:17 Chloride IVPB 125 mls INF RANDI Administration Protocol 5 MG/HR Insulin Human Lispro 0 units 02/29/20 08:48 03/02/20 17:50 Humalog 300 Units/3 Ml Vial SC 2 unit .MILD SLIDING SCALE PRN Administration Mild Correctional Scale Insulin Human Lispro 0 units 02/29/20 08:48 03/02/20 21:29 Humalog 300 Units/3 Ml Vial SC 2 unit .BEDTIME SLIDING SC PRN Administration Bedtime Correctional Scale Levofloxacin 750 mg 02/29/20 18:00 03/02/20 17:50 Levofloxacin 750 Mg Tab PO 03/03/20 18:01 750 mg 1800 RANDI Administration Losartan Potassium 25 mg 03/02/20 09:00 03/03/20 08:54 Losartan 25 Mg Tab PO 25 mg DAILY RANDI Administration Melatonin 3 mg 02/28/20 19:40 03/03/20 03:34 Melatonin 3 Mg Tab PO 3 mg HS PRN Administration Insomnia Nicotine 21 mg 02/28/20 16:32 03/01/20 20:21 Nicotine 21 Mg Patch TD 21 mg Q24H PRN Administration Smoking Cessation Pantoprazole Sodium 40 mg 02/28/20 21:00 03/02/20 21:30 Pantoprazole 40 Mg Tab PO 40 mg HS RANDI Administration Prednisone 40 mg 03/02/20 08:00 03/03/20 08:54 Prednisone 20 Mg Tab PO 40 mg QAM-WM RANDI Administration Sodium Chloride 10 ml 02/29/20 09:00 03/03/20 08:54 Flush - Normal Saline 10 Ml Syringe IVF 10 ml Q12HR RANDI Administration Sodium Chloride 10 ml 02/29/20 09:00 03/01/20 22:02 Flush - Normal Saline 10 Ml Syringe IVF 10 ml PRN PRN Administration Saline Flush Temazepam 15 mg 02/28/20 21:00 03/02/20 21:30 Temazepam 15 Mg Cap PO 15 mg HS RANDI Administration Tramadol HCl 50 mg 03/01/20 11:51 03/01/20 12:42 Tramadol Hcl 50 Mg Tab PO 50 mg Q6H PRN Administration Moderate Pain (4-6) - Exam General Appearance: awake alert Neck: no JVD Heart: RRR, no murmur Respiratory - other findings: hyperresonant, insp/expir wheezes Gastrointestinal: soft, non-tender, normal bowel sounds Extremities: no edema Hosp A/P (1) Acute on chronic respiratory failure with hypoxemia Code(s): J96.21 - ACUTE AND CHRONIC RESPIRATORY FAILURE WITH HYPOXIA Status: Acute (2) Atrial fibrillation with RVR Code(s): I48.91 - UNSPECIFIED ATRIAL FIBRILLATION Status: Acute (3) COPD exacerbation Code(s): J44.1 - CHRONIC OBSTRUCTIVE PULMONARY DISEASE W (ACUTE) EXACERBATION Status: Acute (4) Systolic heart failure Code(s): I50.20 - UNSPECIFIED SYSTOLIC (CONGESTIVE) HEART FAILURE Status: Acute Qualifiers: Heart failure chronicity: acute on chronic Qualified Code(s): I50.23 - Acute on chronic systolic (congestive) heart failure (5) Hypertension Code(s): I10 - ESSENTIAL (PRIMARY) HYPERTENSION Status: Chronic Qualifiers: Hypertension type: essential hypertension Qualified Code(s): I10 - Essential (primary) hypertension (6) UTI (urinary tract infection) Status: Acute Qualifiers: Urinary tract infection type: acute cystitis Hematuria presence: without hematuria Qualified Code(s): N30.00 - Acute cystitis without hematuria (7) HTN (hypertension), benign Code(s): I10 - ESSENTIAL (PRIMARY) HYPERTENSION Status: Chronic (8) Tobacco abuse Code(s): Z72.0 - TOBACCO USE Status: Chronic - Plan cont nebs, LABA, steroids cont b-pola, ARB rpt CXR
[2020-03-03] MEDS: Acetaminophen/Codeine 30-300mg Tablet PO PRN ×3 (11:06→20:50)
--- NOTE | 2020-03-03 13:57 | RAD ---
RADIOGRAPH CHEST 2 VIEWS: Date: 03/03/2020. Time: 11:57 a.m. HISTORY: A 64-year-old female with congestive heart failure, followup. COMPARISON: 02/28/2020. FINDINGS: The small right pleural effusion has increased in volume. They smaller left pleural effusion is prob ably also slightly larger now. Cardiomegaly. Pulmonary venous congestion. The pulmonary interstitial edema appears improved since the other study, but that could be because th e current study is overexposed. No pneumothorax. Airspace opacities partially obscured by the bilat eral pleural effusions at the lung bases, right greater than left. IMPRESSION: 1. Interval increase in small bilateral pleural effusions, right greater than left. 2. Underlying airspace opacities at the bases of the bilateral lower lobes probably represent atelec tasis, although pneumonia is not excluded. 3. Cardiomegaly and mild pulmonary venous congestion. JN [] POS: JIN
--- NOTE | 2020-03-03 15:11 | PDOC.BPN ---
- Brief Progress Note Encounter Date: 03/03/20 Encounter Time: 15:09 weight up. CXR increased pleural effusions, PVC. start lasix
[2020-03-03] MEDS ORDERED: Furosemide 40 MG/4 ML VIAL SLOW IVP SCH (15:15)
[2020-03-03] MEDS: HumaLOG 300 UNITS/3 ML VIAL SC PRN (17:42)
[2020-03-03] MEDS: Temazepam 15 MG CAP PO SCH (20:50)
[2020-03-03] MEDS: Nicotine 21 MG PATCH TD PRN (21:17)
[2020-03-03] MEDS: Diltiazem 125 MG in Sodium Chloride 0.9% 100 ML IVPB SCH (23:57)
[2020-03-04] MEDS: Acetaminophen/Codeine 30-300mg Tablet PO PRN ×5 (02:08→21:03)
[2020-03-04 05:23] LABS: Hemoglobin 9.3 g/dL (12.0-16.0); Platelet Count 411 thou/uL (130-400)
[2020-03-04 05:24] LABS: Anion Gap 11 mmol/L (10-20); BUN (Urea Nitrogen) 31 mg/dL (9.8-20.1); Calc. Creatinine Clearance 67 mL/min (70-130); Calcium 7.9 mg/dL (7.8-10.44); Carbon Dioxide 32 mmol/L (23-31); Chloride 97 mmol/L (98-107); Glucose 88 mg/dL (80-115); Potassium 4.2 mmol/L (3.5-5.1); Sodium 136 mmol/L (136-145)
[2020-03-04] MEDS: Albuterol Sulfate 2.5 mg/3 ml Neb NEB SCH ×4 (07:16→19:04)
[2020-03-04] MEDS: Arformoterol 15 MCG/2 ML NEB NEB SCH ×2 (07:16→19:05)
[2020-03-04] MEDS: Losartan 25 MG TAB PO SCH (08:34)
[2020-03-04] MEDS: Cyanocobalamin (Vitamin B-12) 1,000 MCG TAB PO SCH (08:34)
[2020-03-04] MEDS: Aspirin Chewable 81 MG TAB PO SCH (08:34)
[2020-03-04] MEDS: predniSONE 20 MG TAB PO SCH (08:34)
[2020-03-04] MEDS: Carvedilol 3.125 MG TAB PO SCH ×2 (08:34→16:30)
--- NOTE | 2020-03-04 09:23 | PDOC.HOSPP ---
- Subjective Encounter Date: 03/04/20 Encounter Time: 09:21 Subjective: still complaining of weakness and SOB - Objective Vital Signs & Weight: Vital Signs (12 hours) Temp Pulse Resp BP Pulse Ox 03/04/20 07:37 97.1 F L 88 18 163/101 H 99 03/04/20 07:16 86 24 H 03/04/20 04:53 96 03/04/20 04:00 98 F 82 19 143/80 H 98 03/04/20 00:00 82 135/77 Weight Admit Weight 115 lb Weight 138 lb 3.2 oz Most Recent Monitor Data Heart Rate from ECG 104 NIBP 124/81 NIBP BP-Mean 95 Respiration from ECG 26 SpO2 96 I&O: 03/03/20 03/04/20 03/05/20 06:59 06:59 06:59 Intake Total 1386.9 2425.1 Output Total 400 2200 Balance 986.9 225.1 Result Diagrams: 03/04/20 03:58 03/04/20 03:58 Additional Labs: Accuchecks 03/04/20 03/03/20 03/03/20 06:34 16:40 10:52 POC Glucose 93 184 H 131 H Hospitalist ROS - Medication Medications: Active Medications Generic Name Dose Route Start Last Admin Trade Name Freq PRN Reason Stop Dose Admin Acetaminophen 650 mg 02/28/20 16:32 03/02/20 17:50 Acetaminophen 325 Mg Tab PO 650 mg Q4H PRN Administration Headache/Fever/Mild Pain (1-3) Acetaminophen/Codeine Phosphate 2 tab 03/01/20 09:14 03/04/20 02:08 Acetaminophen/Codeine 30-300mg Tablet PO 2 tab Q4H PRN Administration Moderate Pain (4-6) Albuterol Sulfate 2.5 mg 03/02/20 19:00 03/04/20 07:16 Albuterol Sulfate 2.5 Mg/3 Ml Neb NEB 2.5 mg QID-RT RANDI Administration Arformoterol Tartrate 15 mcg 02/28/20 18:30 03/04/20 07:16 Arformoterol 15 Mcg/2 Ml Neb NEB 15 mcg BID-RT RANDI Administration Aspirin 81 mg 02/29/20 09:00 03/04/20 08:34 Aspirin Chewable 81 Mg Tab PO 81 mg DAILY RANDI Administration Carvedilol 3.125 mg 03/02/20 08:00 03/04/20 08:34 Carvedilol 3.125 Mg Tab PO 3.125 mg BID-WM RANDI Administration Cyanocobalamin 1,000 mcg 02/29/20 09:00 03/04/20 08:34 Cyanocobalamin (Vitamin B-12) 1,000 Mcg Tab PO 1,000 mcg DAILY RANDI Administration Diltiazem HCl 125 mg/ Sodium 125 mls @ 5 mls/hr 03/01/20 17:15 03/03/20 23:57 Chloride IVPB 125 mls INF RANDI Administration Protocol 5 MG/HR Insulin Human Lispro 0 units 02/29/20 08:48 03/03/20 17:42 Humalog 300 Units/3 Ml Vial SC 2 unit .MILD SLIDING SCALE PRN Administration Mild Correctional Scale Insulin Human Lispro 0 units 02/29/20 08:48 03/02/20 21:29 Humalog 300 Units/3 Ml Vial SC 2 unit .BEDTIME SLIDING SC PRN Administration Bedtime Correctional Scale Losartan Potassium 25 mg 03/02/20 09:00 03/04/20 08:34 Losartan 25 Mg Tab PO 25 mg DAILY RANDI Administration Melatonin 3 mg 02/28/20 19:40 03/03/20 20:50 Melatonin 3 Mg Tab PO 3 mg HS PRN Administration Insomnia Nicotine 21 mg 02/28/20 16:32 03/03/20 21:17 Nicotine 21 Mg Patch TD 21 mg Q24H PRN Administration Smoking Cessation Pantoprazole Sodium 40 mg 02/28/20 21:00 03/03/20 20:50 Pantoprazole 40 Mg Tab PO 40 mg HS RANDI Administration Prednisone 40 mg 03/02/20 08:00 03/04/20 08:34 Prednisone 20 Mg Tab PO 40 mg QAM-WM RANDI Administration Sodium Chloride 10 ml 02/29/20 09:00 03/04/20 08:34 Flush - Normal Saline 10 Ml Syringe IVF 10 ml Q12HR RANDI Administration Sodium Chloride 10 ml 02/29/20 09:00 03/01/20 22:02 Flush - Normal Saline 10 Ml Syringe IVF 10 ml PRN PRN Administration Saline Flush Temazepam 15 mg 02/28/20 21:00 03/03/20 20:50 Temazepam 15 Mg Cap PO 15 mg HS RANDI Administration Tramadol HCl 50 mg 03/01/20 11:51 03/01/20 12:42 Tramadol Hcl 50 Mg Tab PO 50 mg Q6H PRN Administration Moderate Pain (4-6) - Exam General Appearance: awake alert Neck: no JVD Heart: RRR, no murmur Respiratory - other findings: marked clearing of wheezes, no post rales Gastrointestinal: soft, normal bowel sounds Extremities: no edema Hosp A/P (1) Acute on chronic respiratory failure with hypoxemia Code(s): J96.21 - ACUTE AND CHRONIC RESPIRATORY FAILURE WITH HYPOXIA Status: Acute (2) Atrial fibrillation with RVR Code(s): I48.91 - UNSPECIFIED ATRIAL FIBRILLATION Status: Resolved (3) COPD exacerbation Code(s): J44.1 - CHRONIC OBSTRUCTIVE PULMONARY DISEASE W (ACUTE) EXACERBATION Status: Acute (4) Systolic heart failure Code(s): I50.20 - UNSPECIFIED SYSTOLIC (CONGESTIVE) HEART FAILURE Status: Acute Qualifiers: Heart failure chronicity: acute on chronic Qualified Code(s): I50.23 - Acute on chronic systolic (congestive) heart failure (5) Hypertension Code(s): I10 - ESSENTIAL (PRIMARY) HYPERTENSION Status: Chronic Qualifiers: Hypertension type: essential hypertension Qualified Code(s): I10 - Essential (primary) hypertension (6) UTI (urinary tract infection) Status: Acute Qualifiers: Urinary tract infection type: acute cystitis Hematuria presence: without hematuria Qualified Code(s): N30.00 - Acute cystitis without hematuria (7) HTN (hypertension), benign Code(s): I10 - ESSENTIAL (PRIMARY) HYPERTENSION Status: Chronic (8) Tobacco abuse Code(s): Z72.0 - TOBACCO USE Status: Chronic - Plan cont nebs, LABA, steroids cont b-pola, ARB good diuresis overnite, cont iv lasix possible transition to po tommorow chronically O2 dopendent
[2020-03-04] MEDS: Furosemide 40 MG/4 ML VIAL SLOW IVP SCH (10:05)
[2020-03-04] MEDS: Temazepam 15 MG CAP PO SCH (21:04)
[2020-03-04] MEDS: Nicotine 21 MG PATCH TD PRN (21:04)
[2020-03-04] MEDS: Melatonin 3 MG TAB PO PRN (21:04)
[2020-03-04] MEDS: Calcium Carbonate 500 MG ChewTAB PO PRN (23:09)
[2020-03-05] MEDS: Acetaminophen/Codeine 30-300mg Tablet PO PRN ×4 (01:04→20:54)
[2020-03-05] MEDS: Diltiazem 125 MG in Sodium Chloride 0.9% 100 ML IVPB SCH (05:17)
[2020-03-05 05:45] LABS: Anion Gap 13 mmol/L (10-20); BUN (Urea Nitrogen) 28 mg/dL (9.8-20.1); Calc. Creatinine Clearance 71 mL/min (70-130); Calcium 7.9 mg/dL (7.8-10.44); Carbon Dioxide 31 mmol/L (23-31); Chloride 94 mmol/L (98-107); Glucose 105 mg/dL (80-115); Potassium 4.4 mmol/L (3.5-5.1); Sodium 134 mmol/L (136-145)
[2020-03-05] MEDS: Albuterol Sulfate 2.5 mg/3 ml Neb NEB SCH ×4 (08:11→19:35)
[2020-03-05] MEDS: Losartan 25 MG TAB PO SCH (08:59)
[2020-03-05] MEDS: predniSONE 20 MG TAB PO SCH (08:59)
[2020-03-05] MEDS: Cyanocobalamin (Vitamin B-12) 1,000 MCG TAB PO SCH (08:59)
[2020-03-05] MEDS: Aspirin Chewable 81 MG TAB PO SCH (08:59)
[2020-03-05] MEDS: Furosemide 40 MG/4 ML VIAL SLOW IVP SCH (09:00)
[2020-03-05] MEDS: Carvedilol 3.125 MG TAB PO SCH ×2 (09:00→17:05)
[2020-03-05] MEDS: Calcium Carbonate 500 MG ChewTAB PO PRN (09:19)
--- NOTE | 2020-03-05 10:01 | PDOC.HOSPP ---
- Subjective Encounter Date: 03/05/20 Encounter Time: 10:00 Subjective: stillcomplaining of sob,nocturnal sob - Objective Vital Signs & Weight: Vital Signs (12 hours) Temp Pulse Resp BP Pulse Ox 03/05/20 03:38 98.6 F 86 14 151/84 H 92 L 03/05/20 00:10 82 141/82 H Weight Admit Weight 115 lb Weight 138 lb 14.4 oz Most Recent Monitor Data Heart Rate from ECG 104 NIBP 124/81 NIBP BP-Mean 95 Respiration from ECG 26 SpO2 96 I&O: 03/04/20 03/05/20 03/06/20 06:59 06:59 06:59 Intake Total 2425.1 2001.1 Output Total 2200 3350 Balance 225.1 -1348.9 Result Diagrams: 03/04/20 03:58 03/05/20 04:46 Additional Labs: Accuchecks 03/05/20 03/04/20 03/04/20 06:05 20:40 16:32 POC Glucose 89 173 H 141 H Hospitalist ROS - Medication Medications: Active Medications Generic Name Dose Route Start Last Admin Trade Name Freq PRN Reason Stop Dose Admin Acetaminophen 650 mg 02/28/20 16:32 03/02/20 17:50 Acetaminophen 325 Mg Tab PO 650 mg Q4H PRN Administration Headache/Fever/Mild Pain (1-3) Acetaminophen/Codeine Phosphate 2 tab 03/01/20 09:14 03/05/20 09:06 Acetaminophen/Codeine 30-300mg Tablet PO 2 tab Q4H PRN Administration Moderate Pain (4-6) Albuterol Sulfate 2.5 mg 03/02/20 19:00 03/05/20 08:11 Albuterol Sulfate 2.5 Mg/3 Ml Neb NEB Not Given QID-RT RANDI Arformoterol Tartrate 15 mcg 02/28/20 18:30 03/04/20 19:05 Arformoterol 15 Mcg/2 Ml Neb NEB 15 mcg BID-RT RANDI Administration Aspirin 81 mg 02/29/20 09:00 03/05/20 08:59 Aspirin Chewable 81 Mg Tab PO 81 mg DAILY RANDI Administration Calcium Carbonate 1,000 mg 03/01/20 13:04 03/05/20 09:19 Calcium Carbonate 500 Mg Chewtab PO 1,000 mg Q4H PRN Administration Heartburn or Indigestion Carvedilol 3.125 mg 03/02/20 08:00 03/05/20 09:00 Carvedilol 3.125 Mg Tab PO 3.125 mg BID-WM RANDI Administration Cyanocobalamin 1,000 mcg 02/29/20 09:00 03/05/20 08:59 Cyanocobalamin (Vitamin B-12) 1,000 Mcg Tab PO 1,000 mcg DAILY RANDI Administration Furosemide 40 mg 03/04/20 09:00 03/05/20 09:00 Furosemide 40 Mg/4 Ml Vial SLOW IVP 40 mg DAILY RANDI Administration Diltiazem HCl 125 mg/ Sodium 125 mls @ 5 mls/hr 03/01/20 17:15 03/05/20 05:17 Chloride IVPB 125 mls INF RANDI Administration Protocol 5 MG/HR Insulin Human Lispro 0 units 02/29/20 08:48 03/03/20 17:42 Humalog 300 Units/3 Ml Vial SC 2 unit .MILD SLIDING SCALE PRN Administration Mild Correctional Scale Insulin Human Lispro 0 units 02/29/20 08:48 03/02/20 21:29 Humalog 300 Units/3 Ml Vial SC 2 unit .BEDTIME SLIDING SC PRN Administration Bedtime Correctional Scale Losartan Potassium 25 mg 03/02/20 09:00 03/05/20 08:59 Losartan 25 Mg Tab PO 25 mg DAILY RANDI Administration Melatonin 3 mg 02/28/20 19:40 03/04/20 21:04 Melatonin 3 Mg Tab PO 3 mg HS PRN Administration Insomnia Nicotine 21 mg 02/28/20 16:32 03/04/20 21:04 Nicotine 21 Mg Patch TD 21 mg Q24H PRN Administration Smoking Cessation Pantoprazole Sodium 40 mg 02/28/20 21:00 03/04/20 21:04 Pantoprazole 40 Mg Tab PO 40 mg HS RANDI Administration Prednisone 40 mg 03/02/20 08:00 03/05/20 08:59 Prednisone 20 Mg Tab PO 40 mg QAM-WM RANDI Administration Sodium Chloride 10 ml 02/29/20 09:00 03/05/20 09:01 Flush - Normal Saline 10 Ml Syringe IVF 10 ml Q12HR RANDI Administration Sodium Chloride 10 ml 02/29/20 09:00 03/01/20 22:02 Flush - Normal Saline 10 Ml Syringe IVF 10 ml PRN PRN Administration Saline Flush Temazepam 15 mg 02/28/20 21:00 03/04/20 21:04 Temazepam 15 Mg Cap PO 15 mg HS RANDI Administration Tramadol HCl 50 mg 03/01/20 11:51 03/01/20 12:42 Tramadol Hcl 50 Mg Tab PO 50 mg Q6H PRN Administration Moderate Pain (4-6) - Exam General Appearance: awake alert Neck: no JVD Heart: RRR, no murmur Respiratory - other findings: wheezes have cleared.BS stilldiminished.post bailar rales minimal Gastrointestinal: soft, normal bowel sounds Extremities: no edema Hosp A/P (1) Acute on chronic respiratory failure with hypoxemia Code(s): J96.21 - ACUTE AND CHRONIC RESPIRATORY FAILURE WITH HYPOXIA Status: Acute (2) Atrial fibrillation with RVR Code(s): I48.91 - UNSPECIFIED ATRIAL FIBRILLATION Status: Resolved (3) COPD exacerbation Code(s): J44.1 - CHRONIC OBSTRUCTIVE PULMONARY DISEASE W (ACUTE) EXACERBATION Status: Acute (4) Systolic heart failure Code(s): I50.20 - UNSPECIFIED SYSTOLIC (CONGESTIVE) HEART FAILURE Status: Acute Qualifiers: Heart failure chronicity: acute on chronic Qualified Code(s): I50.23 - Acute on chronic systolic (congestive) heart failure (5) Hypertension Code(s): I10 - ESSENTIAL (PRIMARY) HYPERTENSION Status: Chronic Qualifiers: Hypertension type: essential hypertension Qualified Code(s): I10 - Essential (primary) hypertension (6) UTI (urinary tract infection) Status: Acute Qualifiers: Urinary tract infection type: acute cystitis Hematuria presence: without hematuria Qualified Code(s): N30.00 - Acute cystitis without hematuria (7) HTN (hypertension), benign Code(s): I10 - ESSENTIAL (PRIMARY) HYPERTENSION Status: Chronic (8) Tobacco abuse Code(s): Z72.0 - TOBACCO USE Status: Chronic - Plan 1.COPD muchimprovedcont nebs, LABA, steroids 2.A/C sys chf-cont b-pola, ARBgood diuresis overnite, cont iv lasix rpt cxr-patient clinically markedly improved; however complaints unchangrd chronically O2 dopendent
[2020-03-05] MEDS: Arformoterol 15 MCG/2 ML NEB NEB SCH ×2 (10:55→19:35)
--- NOTE | 2020-03-05 11:14 | RAD ---
EXAM: Chest PA and lateral: HISTORY: Exam: Follow-up congestive heart failure COMPARISON: 03/03/2020 FINDINGS: Heart size:Stable minimal cardiomegaly. Lungs:Stable patchy parenchymal changes in the bases Bilateral pleural effusions greater on the right side with some right lower lobe infrahilar parenchym al changes evidence for partial atelectasis and/or possible pneumonitis. IMPRESSION: Overall stable appearing bilateral parenchymal changes and primarily right lower lobe pleural and par enchymal opacity changes. No significant new process.
--- NOTE | 2020-03-05 15:52 | PDOC.BPN ---
- Brief Progress Note Encounter Date: 03/05/20 Encounter Time: 15:50 CXR read as unchanged. my interpretation in decreased PVC with residual pleural effusion. cont diuresis, change to po lasix anticipated
[2020-03-05] MEDS: traMADol HCl 50 MG TAB PO PRN (20:45)
[2020-03-05] MEDS: Temazepam 15 MG CAP PO SCH (20:45)
[2020-03-05] MEDS: Acetaminophen 325 MG TAB PO PRN (20:46)
[2020-03-05] MEDS: Melatonin 3 MG TAB PO PRN (23:56)
[2020-03-06] MEDS: Acetaminophen/Codeine 30-300mg Tablet PO PRN ×4 (03:51→20:32)
[2020-03-06 05:22] LABS: Anion Gap 12 mmol/L (10-20); BUN (Urea Nitrogen) 29 mg/dL (9.8-20.1); Calc. Creatinine Clearance 74 mL/min (70-130); Calcium 7.7 mg/dL (7.8-10.44); Carbon Dioxide 34 mmol/L (23-31); Chloride 91 mmol/L (98-107); Glucose 123 mg/dL (80-115); Potassium 3.8 mmol/L (3.5-5.1); Sodium 133 mmol/L (136-145)
[2020-03-06] MEDS: Arformoterol 15 MCG/2 ML NEB NEB SCH ×2 (08:47→19:34)
[2020-03-06] MEDS: Albuterol Sulfate 2.5 mg/3 ml Neb NEB SCH ×4 (08:47→19:34)
[2020-03-06] MEDS: Cyanocobalamin (Vitamin B-12) 1,000 MCG TAB PO SCH (08:54)
[2020-03-06] MEDS: Citalopram 20 MG TAB PO SCH (08:54)
[2020-03-06] MEDS: Aspirin Chewable 81 MG TAB PO SCH (08:54)
[2020-03-06] MEDS: Losartan 25 MG TAB PO SCH (08:55)
[2020-03-06] MEDS: predniSONE 20 MG TAB PO SCH (08:55)
[2020-03-06] MEDS: Furosemide 40 MG/4 ML VIAL SLOW IVP SCH (08:55)
[2020-03-06] MEDS: Carvedilol 3.125 MG TAB PO SCH (08:55)
[2020-03-06] MEDS: Calcium Carbonate 500 MG ChewTAB PO PRN (11:32)
--- NOTE | 2020-03-06 11:37 | PDOC.HOSPP ---
- Subjective Encounter Date: 03/06/20 Subjective: Patient reports she is having some heartburn after drinking some lemonade. She also reports that she is having some pain related to hemorrhoids which started bothering her only recently. She does tell me that she has a history of being told she had a "weak heart" about 2 years ago. She says she was unable to follow-up with a in processing instructor because of her financial situation. She is also concerned that she will not be able to afford medications that we prescribed for her during this admission as well. Reports overall her breathing is improved but it is not quite back to baseline. She says that she has an oxygen machine at home that someone gave her but she does not have any portable oxygen. She was able to get up and use the bedside toilet to urinate today. She has been working with physical therapy but asked him to come later today. - Objective Vital Signs & Weight: Vital Signs (12 hours) Temp Pulse Resp BP Pulse Ox 03/06/20 08:47 96 16 03/06/20 08:00 98.3 F 94 18 166/94 H 94 L 03/06/20 04:00 97.9 F 83 23 H 146/70 H 95 03/05/20 23:49 91 151/91 H Weight Admit Weight 115 lb Weight 133 lb Most Recent Monitor Data Heart Rate from ECG 104 NIBP 124/81 NIBP BP-Mean 95 Respiration from ECG 26 SpO2 96 I&O: 03/05/20 03/06/20 03/07/20 06:59 06:59 06:59 Intake Total 2001.1 1440 Output Total 3350 1200 Balance -1348.9 240 Result Diagrams: 03/04/20 03:58 03/06/20 04:20 Additional Labs: Accuchecks 03/06/20 03/06/20 03/05/20 11:03 05:38 21:06 POC Glucose 109 H 102 H 95 03/05/20 16:43 POC Glucose 131 H Hospitalist ROS - Medication Medications: Active Medications Generic Name Dose Route Start Last Admin Trade Name Freq PRN Reason Stop Dose Admin Acetaminophen 650 mg 02/28/20 16:32 03/02/20 17:50 Acetaminophen 325 Mg Tab PO 650 mg Q4H PRN Administration Headache/Fever/Mild Pain (1-3) Acetaminophen/Codeine Phosphate 2 tab 03/01/20 09:14 03/06/20 09:01 Acetaminophen/Codeine 30-300mg Tablet PO 2 tab Q4H PRN Administration Moderate Pain (4-6) Albuterol Sulfate 2.5 mg 03/02/20 19:00 03/06/20 11:12 Albuterol Sulfate 2.5 Mg/3 Ml Neb NEB Not Given QID-RT RANDI Arformoterol Tartrate 15 mcg 02/28/20 18:30 03/06/20 08:47 Arformoterol 15 Mcg/2 Ml Neb NEB 15 mcg BID-RT RANDI Administration Aspirin 81 mg 02/29/20 09:00 03/06/20 08:54 Aspirin Chewable 81 Mg Tab PO 81 mg DAILY RANDI Administration Calcium Carbonate 1,000 mg 03/01/20 13:04 03/06/20 11:32 Calcium Carbonate 500 Mg Chewtab PO 1,000 mg Q4H PRN Administration Heartburn or Indigestion Carvedilol 3.125 mg 03/02/20 08:00 03/06/20 08:55 Carvedilol 3.125 Mg Tab PO 3.125 mg BID-WM RANDI Administration Citalopram Hydrobromide 40 mg 03/06/20 09:00 03/06/20 08:54 Citalopram 20 Mg Tab PO 40 mg DAILY RANDI Administration Cyanocobalamin 1,000 mcg 02/29/20 09:00 03/06/20 08:54 Cyanocobalamin (Vitamin B-12) 1,000 Mcg Tab PO 1,000 mcg DAILY RANDI Administration Furosemide 40 mg 03/04/20 09:00 03/06/20 08:55 Furosemide 40 Mg/4 Ml Vial SLOW IVP 40 mg DAILY RANDI Administration Insulin Human Lispro 0 units 02/29/20 08:48 03/03/20 17:42 Humalog 300 Units/3 Ml Vial SC 2 unit .MILD SLIDING SCALE PRN Administration Mild Correctional Scale Insulin Human Lispro 0 units 02/29/20 08:48 03/02/20 21:29 Humalog 300 Units/3 Ml Vial SC 2 unit .BEDTIME SLIDING SC PRN Administration Bedtime Correctional Scale Losartan Potassium 25 mg 03/02/20 09:00 03/06/20 08:55 Losartan 25 Mg Tab PO 25 mg DAILY RANDI Administration Melatonin 3 mg 02/28/20 19:40 03/05/20 23:56 Melatonin 3 Mg Tab PO 3 mg HS PRN Administration Insomnia Nicotine 21 mg 02/28/20 16:32 03/04/20 21:04 Nicotine 21 Mg Patch TD 21 mg Q24H PRN Administration Smoking Cessation Pantoprazole Sodium 40 mg 03/05/20 21:00 03/06/20 08:55 Pantoprazole 40 Mg Tab PO 40 mg BID RANDI Administration Prednisone 40 mg 03/02/20 08:00 03/06/20 08:55 Prednisone 20 Mg Tab PO 40 mg QAM-WM RANDI Administration Sodium Chloride 10 ml 02/29/20 09:00 03/06/20 08:55 Flush - Normal Saline 10 Ml Syringe IVF 10 ml Q12HR RANDI Administration Sodium Chloride 10 ml 02/29/20 09:00 03/01/20 22:02 Flush - Normal Saline 10 Ml Syringe IVF 10 ml PRN PRN Administration Saline Flush Temazepam 15 mg 02/28/20 21:00 03/05/20 20:45 Temazepam 15 Mg Cap PO 15 mg HS RANDI Administration Tramadol HCl 50 mg 03/01/20 11:51 03/05/20 20:45 Tramadol Hcl 50 Mg Tab PO 50 mg Q6H PRN Administration Moderate Pain (4-6) - Exam General Appearance: NAD, awake alert Heart: RRR, no gallops, no rubs, II/IV Respiratory: no wheezes Respiratory - other findings: Diminished Gastrointestinal: soft, non-tender, non-distended, normal bowel sounds, no palpable masses, no hepatomegaly, no splenomegaly, no bruit Extremities: no cyanosis, no clubbing, no edema Skin: normal turgor Neurological: no focal deficits Musculoskeletal: generalized weakness (Mild) Psychiatric: normal affect, normal behavior, A&O x 3 Hosp A/P (1) Acute on chronic combined systolic and diastolic CHF (congestive heart failure) Code(s): I50.43 - ACUTE ON CHRONIC COMBINED SYSTOLIC AND DIASTOLIC HRT FAIL Status: Acute (2) Cardiomyopathy Code(s): I42.9 - CARDIOMYOPATHY, UNSPECIFIED Status: Acute (3) Acute on chronic respiratory failure with hypoxemia Code(s): J96.21 - ACUTE AND CHRONIC RESPIRATORY FAILURE WITH HYPOXIA Status: Acute (4) COPD exacerbation Code(s): J44.1 - CHRONIC OBSTRUCTIVE PULMONARY DISEASE W (ACUTE) EXACERBATION Status: Acute (5) Elevated blood sugar Code(s): R73.9 - HYPERGLYCEMIA, UNSPECIFIED Status: Acute (6) Hypertension Code(s): I10 - ESSENTIAL (PRIMARY) HYPERTENSION Status: Chronic Qualifiers: Hypertension type: essential hypertension Qualified Code(s): I10 - Essential (primary) hypertension (7) Atrial fibrillation with RVR Code(s): I48.91 - UNSPECIFIED ATRIAL FIBRILLATION Status: Resolved (8) Chronic anemia Code(s): D64.9 - ANEMIA, UNSPECIFIED Status: Chronic (9) History of alcohol abuse Code(s): Z87.898 - PERSONAL HISTORY OF OTHER SPECIFIED CONDITIONS Status: Chronic (10) Tobacco abuse Code(s): Z72.0 - TOBACCO USE Status: Chronic (11) Hemorrhoid Code(s): K64.9 - UNSPECIFIED HEMORRHOIDS Status: Acute (12) CKD (chronic kidney disease) stage 2, GFR 60-89 ml/min Code(s): N18.2 - CHRONIC KIDNEY DISEASE, STAGE 2 (MILD) Status: Acute (13) Physical deconditioning Code(s): R53.81 - OTHER MALAISE Status: Acute - Plan Acute on chronic hypoxic respiratory failure: Likely combination of acute congestive heart failure on chronic heart failure as well as acute COPD exacerbation. Continue oxygen as needed. Acute on chronic combined systolic and diastolic congestive heart failure: Continuing with IV diuresis. Overall she appears to be somewhat improved. Breathing more comfortably. Cardiomyopathy: Patient has an ejection fraction of 35 to 40% with evidence of diastolic dysfunction and some degree of mitral regurgitation. She has some wall motion abnormalities. Cath was performed however detailed report is not available at this time. Does not appear that she had any type of intervention performed. Discussed with cardiology. I will see the patient again today. Her EF is not below 35% on her echocardiogram therefore not likely a candidate for a defibrillator/LifeVest at this time. Continue with afterload reduction. Continue IV Lasix, losartan. Increase preload with carvedilol 3.125 mg p.o. twice daily. COPD exacerbation: Continue with nebs, supplemental oxygen and p.o. prednisone. Continue Brovana. We will change albuterol nebs to DuoNeb's. A. fib with RVR: Converted back to sinus rhythm with reasonable rate control. She is not on anticoagulation. Her [id number] score is 5. Discussed with cardiology. Do not currently see a contraindication to that but will defer to their assessment today. Tobacco abuse: Patient is not really sure she is going to quit. She understands that it is causing significant damage but she has been doing it for over 50 years. Hemorrhoids: Preparation H. Elevated blood sugar: Likely secondary to the steroids. Appear to be in the normal range presently. Physical deconditioning: We will need to continue to work with physical therapy. Looks like she has had some limitations due to her shortness of breath. She may need to consider discharge to some type of rehab. DVT prophylaxis: We will give a dose of Lovenox now. She may well need to be on some Eliquis for her A. fib although I am not sure she will be able to afford that long-term. PUD prophylaxis: Patient is on steroids and reporting some reflux symptoms now. She is on pantoprazole twice daily.
[2020-03-06] MEDS ORDERED: Enoxaparin Sodium 40 MG/0.4 ML SYRINGE SC SCH (12:00)
[2020-03-06] MEDS: Carvedilol 6.25 MG TAB PO SCH (17:12)
--- NOTE | 2020-03-06 17:18 | PRG ---
DATE OF SERVICE: 03/06/2020 Dr. Dawn asked me to recheck on Ms. Hathaway, help decide about anticoagulation. SUBJECTIVE: Ms. Hathaway' only complaint now is she has hemorrhoids that are very bothersome to her and painful. She is sitting up in the chair. She said the hemorrhoids are very painful. No chest pain or pressure. OBJECTIVE: VITAL SIGNS: Blood pressure 166/90, pulse 90 and it is sinus. LUNGS: Clear. CARDIAC: Normal S1, normal S2. No murmur, rub, or gallop. ABDOMEN: Soft, nontender. ASSESSMENT: 1. Ejection fraction 35% to 40%. 2. Cardiac catheterization revealed nonobstructive coronary atherosclerosis. 3. Iron deficiency anemia. 4. Paroxysmal atrial fibrillation. 5. Difficult situation, she has a high CHADS-VASc score. One option would be to stop aspirin, wait a few days and then try anticoagulation, but we will need to monitor to make sure she is not losing blood. On talking to her, she did have history of iron deficiency anemia, she has gotten intravenous iron as an outpatient. She had undergone upper and lower endoscopies. PLAN: 1. Stop aspirin for now. 2. Check blood counts tomorrow. 3. Consideration for anticoagulation. 4. Intravenous iron. 5. In view of depressed left ventricular function, increase carvedilol and losartan. Job ID: [id number] [facility]
[2020-03-06] MEDS: Hydrocortisone 1% Cream 30 GM TUBE TOP SCH ×2 (18:22→20:32)
[2020-03-06] MEDS: Temazepam 15 MG CAP PO SCH (20:33)
[2020-03-06] MEDS: Melatonin 3 MG TAB PO PRN (20:35)
[2020-03-06] MEDS: Iron, Sodium Ferric Gluconate 250 MG in Sodium Chloride 0.9% 100 ML IVPB SCH (23:21)
[2020-03-06] MEDS: traMADol HCl 50 MG TAB PO PRN (23:37)
[2020-03-07] MEDS: Acetaminophen/Codeine 30-300mg Tablet PO PRN ×3 (01:32→20:53)
[2020-03-07 05:03] LABS: Hemoglobin 12.4 g/dL (12.0-16.0); Platelet Count 400 thou/uL (130-400)
[2020-03-07 05:09] LABS: Anion Gap 17 mmol/L (10-20); BUN (Urea Nitrogen) 30 mg/dL (9.8-20.1); Calc. Creatinine Clearance 69 mL/min (70-130); Calcium 7.5 mg/dL (7.8-10.44); Carbon Dioxide 27 mmol/L (23-31); Chloride 92 mmol/L (98-107); Glucose 87 mg/dL (80-115); Potassium 4.5 mmol/L (3.5-5.1); Sodium 131 mmol/L (136-145)
[2020-03-07] MEDS: Arformoterol 15 MCG/2 ML NEB NEB SCH ×2 (07:58→18:30)
[2020-03-07] MEDS: Albuterol Sulfate 2.5 mg/3 ml Neb NEB SCH (07:58)
[2020-03-07] MEDS: Carvedilol 6.25 MG TAB PO SCH ×2 (08:27→17:54)
[2020-03-07] MEDS: predniSONE 20 MG TAB PO SCH (08:27)
[2020-03-07] MEDS: Cyanocobalamin (Vitamin B-12) 1,000 MCG TAB PO SCH (08:27)
[2020-03-07] MEDS: Furosemide 40 MG/4 ML VIAL SLOW IVP SCH (08:27)
[2020-03-07] MEDS: Citalopram 20 MG TAB PO SCH (08:27)
[2020-03-07] MEDS: Losartan 25 MG TAB PO SCH (10:09)
[2020-03-07] MEDS: Iron, Sodium Ferric Gluconate 250 MG in Sodium Chloride 0.9% 100 ML IVPB SCH (11:31)
--- NOTE | 2020-03-07 16:36 | PDOC.HOSPP ---
- Subjective Encounter Date: 03/07/20 Subjective: Doing generally well today. No specific concerns. - Objective Vital Signs & Weight: Vital Signs (12 hours) Temp Pulse Resp BP Pulse Ox 03/07/20 14:37 75 16 131/77 93 L 03/07/20 07:58 90 20 03/07/20 07:47 98 F 92 16 127/82 92 L Weight Admit Weight 115 lb Weight 131 lb 4.8 oz Most Recent Monitor Data Heart Rate from ECG 104 NIBP 124/81 NIBP BP-Mean 95 Respiration from ECG 26 SpO2 96 I&O: 03/06/20 03/07/20 03/08/20 06:59 06:59 06:59 Intake Total 1440 1900 Output Total 1200 2400 Balance 240 -500 Result Diagrams: 03/07/20 04:32 03/07/20 04:32 Additional Labs: Accuchecks 03/07/20 03/07/20 03/06/20 12:44 05:41 21:16 POC Glucose 169 H 94 119 H 03/06/20 17:22 POC Glucose 172 H Hospitalist ROS - Medication Medications: Active Medications Generic Name Dose Route Start Last Admin Trade Name Freq PRN Reason Stop Dose Admin Acetaminophen 650 mg 02/28/20 16:32 03/02/20 17:50 Acetaminophen 325 Mg Tab PO 650 mg Q4H PRN Administration Headache/Fever/Mild Pain (1-3) Acetaminophen/Codeine Phosphate 2 tab 03/01/20 09:14 03/07/20 10:09 Acetaminophen/Codeine 30-300mg Tablet PO 2 tab Q4H PRN Administration Moderate Pain (4-6) Arformoterol Tartrate 15 mcg 02/28/20 18:30 03/07/20 07:58 Arformoterol 15 Mcg/2 Ml Neb NEB 15 mcg BID-RT RANDI Administration Calcium Carbonate 1,000 mg 03/01/20 13:04 03/06/20 11:32 Calcium Carbonate 500 Mg Chewtab PO 1,000 mg Q4H PRN Administration Heartburn or Indigestion Carvedilol 6.25 mg 03/06/20 17:00 03/07/20 08:27 Carvedilol 6.25 Mg Tab PO 6.25 mg BID-WM RANDI Administration Citalopram Hydrobromide 40 mg 03/06/20 09:00 03/07/20 08:27 Citalopram 20 Mg Tab PO 40 mg DAILY RANDI Administration Cyanocobalamin 1,000 mcg 02/29/20 09:00 03/07/20 08:27 Cyanocobalamin (Vitamin B-12) 1,000 Mcg Tab PO 1,000 mcg DAILY RANDI Administration Furosemide 40 mg 03/04/20 09:00 03/07/20 08:27 Furosemide 40 Mg/4 Ml Vial SLOW IVP 40 mg DAILY RANDI Administration Hydrocortisone/Aloe 0 gm 03/06/20 21:00 03/06/20 20:32 Hydrocortisone 1% Cream 30 Gm Tube TOP 1 appful BID RANDI Administration Insulin Human Lispro 0 units 02/29/20 08:48 03/03/20 17:42 Humalog 300 Units/3 Ml Vial SC 2 unit .MILD SLIDING SCALE PRN Administration Mild Correctional Scale Insulin Human Lispro 0 units 02/29/20 08:48 03/02/20 21:29 Humalog 300 Units/3 Ml Vial SC 2 unit .BEDTIME SLIDING SC PRN Administration Bedtime Correctional Scale Losartan Potassium 50 mg 03/07/20 09:00 03/07/20 10:09 Losartan 25 Mg Tab PO 50 mg DAILY RANDI Administration Melatonin 3 mg 02/28/20 19:40 03/06/20 20:35 Melatonin 3 Mg Tab PO 3 mg HS PRN Administration Insomnia Nicotine 21 mg 02/28/20 16:32 03/04/20 21:04 Nicotine 21 Mg Patch TD 21 mg Q24H PRN Administration Smoking Cessation Ondansetron HCl 4 mg 02/28/20 16:32 03/07/20 02:18 Ondansetron Pf 4 Mg/2 Ml Vial IVP 4 mg Q6H PRN Administration Nausea/Vomiting Pantoprazole Sodium 40 mg 03/05/20 21:00 03/07/20 08:27 Pantoprazole 40 Mg Tab PO 40 mg BID RANDI Administration Prednisone 40 mg 03/02/20 08:00 03/07/20 08:27 Prednisone 20 Mg Tab PO 40 mg QAM-WM RANDI Administration Sodium Chloride 10 ml 02/29/20 09:00 03/07/20 08:28 Flush - Normal Saline 10 Ml Syringe IVF 10 ml Q12HR RANDI Administration Sodium Chloride 10 ml 02/29/20 09:00 03/01/20 22:02 Flush - Normal Saline 10 Ml Syringe IVF 10 ml PRN PRN Administration Saline Flush Temazepam 15 mg 02/28/20 21:00 03/06/20 20:33 Temazepam 15 Mg Cap PO 15 mg HS RANDI Administration Tramadol HCl 50 mg 03/01/20 11:51 03/06/20 23:37 Tramadol Hcl 50 Mg Tab PO 50 mg Q6H PRN Administration Moderate Pain (4-6) - Exam General Appearance: NAD, awake alert Heart: RRR, no murmur, no gallops, no rubs, normal peripheral pulses Respiratory: no wheezes, no rales, no ronchi Respiratory - other findings: Slightly diminished Gastrointestinal: soft, non-tender, non-distended, normal bowel sounds, no palpable masses, no hepatomegaly, no splenomegaly, no bruit Extremities: no cyanosis, no clubbing, no edema Skin: normal turgor Musculoskeletal: generalized weakness Psychiatric: normal affect, normal behavior, A&O x 3 Hosp A/P (1) Acute on chronic combined systolic and diastolic CHF (congestive heart failure) Code(s): I50.43 - ACUTE ON CHRONIC COMBINED SYSTOLIC AND DIASTOLIC HRT FAIL Status: Acute (2) Cardiomyopathy Code(s): I42.9 - CARDIOMYOPATHY, UNSPECIFIED Status: Acute (3) Acute on chronic respiratory failure with hypoxemia Code(s): J96.21 - ACUTE AND CHRONIC RESPIRATORY FAILURE WITH HYPOXIA Status: Acute (4) COPD exacerbation Code(s): J44.1 - CHRONIC OBSTRUCTIVE PULMONARY DISEASE W (ACUTE) EXACERBATION Status: Acute (5) Elevated blood sugar Code(s): R73.9 - HYPERGLYCEMIA, UNSPECIFIED Status: Acute (6) Hypertension Code(s): I10 - ESSENTIAL (PRIMARY) HYPERTENSION Status: Chronic Qualifiers: Hypertension type: essential hypertension Qualified Code(s): I10 - Essential (primary) hypertension (7) Atrial fibrillation with RVR Code(s): I48.91 - UNSPECIFIED ATRIAL FIBRILLATION Status: Resolved (8) Chronic anemia Code(s): D64.9 - ANEMIA, UNSPECIFIED Status: Chronic (9) History of alcohol abuse Code(s): Z87.898 - PERSONAL HISTORY OF OTHER SPECIFIED CONDITIONS Status: Chronic (10) Tobacco abuse Code(s): Z72.0 - TOBACCO USE Status: Chronic (11) Hemorrhoid Code(s): K64.9 - UNSPECIFIED HEMORRHOIDS Status: Acute (12) CKD (chronic kidney disease) stage 2, GFR 60-89 ml/min Code(s): N18.2 - CHRONIC KIDNEY DISEASE, STAGE 2 (MILD) Status: Acute (13) Physical deconditioning Code(s): R53.81 - OTHER MALAISE Status: Acute (14) Iron deficiency anemia Code(s): D50.9 - IRON DEFICIENCY ANEMIA, UNSPECIFIED Status: Acute - Plan Acute on chronic hypoxic respiratory failure: Likely combination of acute congestive heart failure on chronic heart failure as well as acute COPD exacerbation. Patient reports that she was in the process of getting oxygen arranged for herself at home. While waiting the patient was given an oxygen machine by a friend that she uses at home. Continue oxygen as needed. She seems to generally do okay at rest without oxygen. Acute on chronic combined systolic and diastolic congestive heart failure: Continuing with IV diuresis. Overall she appears to be somewhat improved. Breathing more comfortably. Cardiomyopathy: Patient has an ejection fraction of 35 to 40% with evidence of diastolic dysfunction and some degree of mitral regurgitation. She has some wall motion abnormalities. Cath some nonocclusive disease. She was maintained on IV Lasix. Continued on losartan with an increase in the dose to 50 mg daily on 03/07/2020. Continued on carvedilol with dose increased to 6.25 mg p.o. twice daily on 03/07/2020. COPD exacerbation: Continue with nebs, supplemental oxygen and p.o. prednisone. Continue Brovana, DuoNeb's. A. fib with RVR: Presented with A. fib with RVR. Converted back to sinus rhythm with reasonable rate control. She was not initially on anticoagulation. Her [id number] score was 5. However, she had some evidence of iron deficiency anemia. Discussed with cardiology. Her aspirin was held and she was given IV iron. Repeat hemoglobin showed stability. Initiated Eliquis at half dose. Tobacco abuse: Patient is not really sure she is going to quit. She understands that it is causing significant damage but she has been doing it for over 50 years. Hemorrhoids: Preparation H. Patient reported that her oral iron supplementation actually helped her have a bowel movement and this relieved a good bit of her pain. Elevated blood sugar: Likely secondary to the steroids. Subsequently resolved to the normal range. Physical deconditioning: We will need to continue to work with physical therapy. Looks like she has had some limitations due to her shortness of breath. She may need to consider discharge to some type of rehab. DVT prophylaxis: Patient was started on low-dose Eliquis for A. fib. PUD prophylaxis: Patient is on steroids and reporting some reflux symptoms now. She is on pantoprazole twice daily. Disposition: Patient will be medically stable for discharge on 03/08/2020. She will likely need to go to rehab due to deconditioning. Awaiting assessment of the various therapies.
[2020-03-07] MEDS: Temazepam 15 MG CAP PO SCH (20:53)
[2020-03-07] MEDS: Apixaban 2.5 MG TAB PO SCH (20:53)
[2020-03-07] MEDS: Melatonin 3 MG TAB PO PRN (20:54)
[2020-03-07] MEDS: Hydrocortisone 1% Cream 30 GM TUBE TOP SCH (21:45)
[2020-03-08] MEDS: Acetaminophen/Codeine 30-300mg Tablet PO PRN ×4 (01:26→13:23)
[2020-03-08 05:04] LABS: Anion Gap 10 mmol/L (10-20); BUN (Urea Nitrogen) 23 mg/dL (9.8-20.1); Calc. Creatinine Clearance 74 mL/min (70-130); Calcium 7.8 mg/dL (7.8-10.44); Carbon Dioxide 36 mmol/L (23-31); Chloride 91 mmol/L (98-107); Glucose 78 mg/dL (80-115); Sodium 132 mmol/L (136-145)
[2020-03-08] MEDS: Arformoterol 15 MCG/2 ML NEB NEB SCH (07:08)
[2020-03-08] MEDS ORDERED: Furosemide 40 MG TAB PO SCH (07:30)
[2020-03-08] MEDS: Apixaban 2.5 MG TAB PO SCH (08:52)
[2020-03-08] MEDS: Cyanocobalamin (Vitamin B-12) 1,000 MCG TAB PO SCH (08:53)
[2020-03-08] MEDS: predniSONE 20 MG TAB PO SCH (08:54)
[2020-03-08] MEDS: Carvedilol 6.25 MG TAB PO SCH ×2 (08:54→17:05)
[2020-03-08] MEDS: Citalopram 20 MG TAB PO SCH (08:54)
[2020-03-08] MEDS: Losartan 25 MG TAB PO SCH (08:54)
[2020-03-08] MEDS: Hydrocortisone 1% Cream 30 GM TUBE TOP SCH (08:55)
[2020-03-08 11:23] LABS: #Basophils 0.1 thou/uL (0.0-0.2); #Lymphocytes 0.8 thou/uL (1.20-3.40); #Monocytes 0.6 thou/uL (0.11-0.59); %Basophils 0.4 % (0.0-1.0); %Eosinophils 0.2 % (0.0-10.0); %Lymphocytes 6.5 % (21.0-51.0); %Monocytes 5.2 % (0.0-10.0); %Neutrophils 87.6 % (42.0-75.0); Hemoglobin 10.4 g/dL (12.0-16.0); Mean Corpuscular HGB CONC 29.7 g/dL (32.0-36.0); Mean Corpuscular Hemoglobin 24.7 pg (27.0-31.0); Mean Platelet Volume 6.9 fL (7.4-10.4); Platelet Count 413 thou/uL (130-400); RBC Distribution Width 19.2 % (11.5-14.5); White Blood Cell (WBC) Count 11.4 thou/uL (4.8-10.8)
[2020-03-08 14:15] VITALS: BMI 20.2
[2020-03-08 15:43] VITALS: BP 149/90; TEMP 98.4
[2020-03-08] MEDS: HumaLOG 300 UNITS/3 ML VIAL SC PRN (17:04)
--- NOTE | 2020-03-08 17:41 | PDOC.DS.DS ---
Provider - Provider Date of Admission: 02/28/20 16:30 Date of Discharge: 03/08/20 Admitting Provider: Pilar Atkins MD Primary Care Physician: OUT OF TOWN Course - Hospital Course Hospital Course: Acute on chronic hypoxic respiratory failure: Likely combination of acute congestive heart failure on chronic heart failure as well as acute COPD exacerbation. Patient reports that she was in the process of getting oxygen arranged for herself at home. While waiting the patient was given an oxygen machine by a friend that she uses at home. Continued oxygen as needed while in the hospital. She seems to generally do okay at rest without oxygen. She did not qualify for home oxygen based on room air saturations with ambulation. Acute on chronic combined systolic and diastolic congestive heart failure: IV diuresis. Overall she appeared to be somewhat improved. Breathing more comfortably. Cardiomyopathy: Patient has an ejection fraction of 35 to 40% with evidence of diastolic dysfunction and some degree of mitral regurgitation. She has some wall motion abnormalities. Cath with some nonocclusive disease. She was maintained on IV Lasix. Continued on losartan with an increase in the dose to 50 mg daily on 03/07/2020. Continued on carvedilol with dose increased to 6.25 mg p.o. twice daily on 03/07/2020. COPD exacerbation: Continued with nebs, supplemental oxygen and p.o. prednisone. Continued BrovanaMarkb's. A. fib with RVR: Presented with A. fib with RVR. Converted back to sinus rhythm with reasonable rate control. She was not initially on anticoagulation. Her [id number] score was 5. However, she had some evidence of iron deficiency anemia. Discussed with cardiology. Her aspirin was held and she was given IV iron. Repeat hemoglobin showed stability. Initiated Eliquis at half dose. Tobacco abuse: Patient is not really sure she is going to quit. She understands that it is causing significant damage but she has been doing it for over 50 years. Hemorrhoids: Preparation H. Patient reported that her oral iron supplementation actually helped her have a bowel movement and this relieved a good bit of her pain. Elevated blood sugar: Likely secondary to the steroids. Subsequently resolved to the normal range. Physical deconditioning: We will need to continue to work with physical therapy. Looks like she has had some limitations due to her shortness of breath. She may need to consider discharge to some type of rehab. Iron deficiency anemia: Patient has a history of iron deficiency anemia. This was confirmed on labs here. The patient reported she had previously had significant work-up including endoscopies which were unrevealing. She did receive IV iron infusions here in the hospital. DVT prophylaxis: Patient was started on low-dose Eliquis for A. fib. PUD prophylaxis: pantoprazole twice daily. Disposition: Patient initially was hoping to consider rehab. However, she got up and ambulated over 230 feet with physical therapy. With that she would not qualify for any rehab. She was comfortable going home. She reported some concerns regarding her ability to obtain her medications. Case management met with the patient. She has Medicare and Medicaid therefore she should have medications covered. She is encouraged to follow-up with her PCP to have repeat CBC testing to ensure stability of her hemoglobin after she has been started on the anticoagulation. Resuscitation Status: 02/28/20 16:32 Resuscitation Status Routine Resuscitation Status: FULL: Full Resuscitation - Labs Lab Results: 03/08/20 10:35 03/08/20 10:35 Abnormal Lab Results - Last 48 hrs 03/07/20 04:32: Sodium 131 L, Chloride 92 L, BUN 30 H, Calcium 7.5 L 03/08/20 04:12: Sodium 132 L, Chloride 91 L, Carbon Dioxide 36 H, BUN 23 H 03/08/20 10:35: WBC 11.4 H, Hgb 10.4 L, Hct 34.8 L, MCH 24.7 L, MCHC 29.7 L, RDW 19.2 H, Plt Count 413 H, MPV 6.9 L, Neutrophils % 87.6 H, Lymphocytes % 6.5 L, Neutrophils # 10.0 H, Lymphocytes # 0.8 L, Monocytes # 0.6 H Microbiology - Entire Visit 03/01/20 19:00 Stool Stool Occult Blood (PATRICIA) - Final - Physical Exam Vitals: Vital Signs (12 hours) Temp Pulse Pulse Pulse Resp BP BP 03/08/20 15:41 98.4 F 93 16 03/08/20 11:13 97.9 F 87 16 03/08/20 09:35 88 89 155/83 H 157/86 H 03/08/20 08:32 98.3 F 92 15 BP Pulse Ox Pulse Ox Pulse Ox 03/08/20 15:41 149/90 H 92 L 03/08/20 11:13 159/86 H 93 L 03/08/20 09:35 90 L 94 L 03/08/20 08:32 163/83 H 94 L Weight Admit Weight 115 lb Weight 121 lb 9.6 oz Most Recent Monitor Data Heart Rate from ECG 104 NIBP 124/81 NIBP BP-Mean 95 Respiration from ECG 26 SpO2 96 Physical Exam: The patient was seen and examined on the day of discharge. Problem - Problem (1) Acute on chronic combined systolic and diastolic CHF (congestive heart fail ure) Code(s): I50.43 - ACUTE ON CHRONIC COMBINED SYSTOLIC AND DIASTOLIC HRT FAIL Status: Acute (2) Cardiomyopathy Code(s): I42.9 - CARDIOMYOPATHY, UNSPECIFIED Status: Acute (3) Acute on chronic respiratory failure with hypoxemia Code(s): J96.21 - ACUTE AND CHRONIC RESPIRATORY FAILURE WITH HYPOXIA Status: Acute (4) COPD exacerbation Code(s): J44.1 - CHRONIC OBSTRUCTIVE PULMONARY DISEASE W (ACUTE) EXACERBATION Status: Acute (5) Elevated blood sugar Code(s): R73.9 - HYPERGLYCEMIA, UNSPECIFIED Status: Acute (6) Hypertension Code(s): I10 - ESSENTIAL (PRIMARY) HYPERTENSION Status: Chronic Qualifiers: Hypertension type: essential hypertension Qualified Code(s): I10 - Essential (primary) hypertension (7) Atrial fibrillation with RVR Code(s): I48.91 - UNSPECIFIED ATRIAL FIBRILLATION Status: Resolved (8) Chronic anemia Code(s): D64.9 - ANEMIA, UNSPECIFIED Status: Chronic (9) History of alcohol abuse Code(s): Z87.898 - PERSONAL HISTORY OF OTHER SPECIFIED CONDITIONS Status: Chronic (10) Tobacco abuse Code(s): Z72.0 - TOBACCO USE Status: Chronic (11) Hemorrhoid Code(s): K64.9 - UNSPECIFIED HEMORRHOIDS Status: Acute (12) CKD (chronic kidney disease) stage 2, GFR 60-89 ml/min Code(s): N18.2 - CHRONIC KIDNEY DISEASE, STAGE 2 (MILD) Status: Acute (13) Physical deconditioning Code(s): R53.81 - OTHER MALAISE Status: Acute (14) Iron deficiency anemia Code(s): D50.9 - IRON DEFICIENCY ANEMIA, UNSPECIFIED Status: Acute Plan - Discharge Medications Prescriptions: Nitroglycerin [Nitrostat] 0.4 mg SL Q5MIN PRN #30 tab PRN Reason: Chest Pain Carvedilol [Coreg] 6.25 mg PO BID-WM #60 tab Losartan [Cozaar] 50 mg PO DAILY #30 tab Apixaban [Eliquis] 2.5 mg PO BID #60 tab Furosemide [Lasix] 40 mg PO DAILY-AC #30 tab Nicotine [Nicoderm CQ] 21 mg TD Q24H PRN #14 patch PRN Reason: Smoking Cessation Home Medications: Medication Instructions Recorded Confirmed Type Budesonide-Formoterol [Symbicort 2 puff INH BID 06/01/19 03/03/20 History 160-4.5] Citalopram Hydrobromide 1 tab PO DAILY 06/01/19 03/03/20 History [Citalopram HBr] Albuterol Sulfate HFA (OR) 2 puff INH Q6H PRN #1 inh 06/02/19 03/03/20 Rx [Proventil Hfa (or)] Pantoprazole [Protonix] 40 mg PO BID #60 tab 06/02/19 03/03/20 Rx Temazepam [Restoril] 15 mg PO HS 02/28/20 02/28/20 History Apixaban [Eliquis] 2.5 mg PO BID #60 tab 03/08/20 Rx Carvedilol [Coreg] 6.25 mg PO BID-WM #60 tab 03/08/20 Rx Furosemide [Lasix] 40 mg PO DAILY-AC #30 tab 03/08/20 Rx Losartan [Cozaar] 50 mg PO DAILY #30 tab 03/08/20 Rx Melatonin 3 mg PO HS PRN tab 03/08/20 Rx Nicotine [Nicoderm CQ] 21 mg TD Q24H PRN #14 patch 03/08/20 Rx Nitroglycerin [Nitrostat] 0.4 mg SL Q5MIN PRN #30 tab 03/08/20 Rx Allergies: adhesive tape Allergy (Verified 02/29/20 21:27) Sulfa (Sulfonamide Antibiotics) Allergy (Verified 06/01/19 02:33) - Discharge Instructions Activity:: Activity as Tolerated Nourishment:: Heart Healthy Diet, Low Sodium Diet - Follow up Plan Referrals: Cardiac Rehab - [facility] [Outside] - 7 Days (Your doctor has ordered outpatient cardiac rehab for you to begin within 1-2 weeks after you go home from the hospital. The location nearest to you is the [facility]. The front office in [place] will call you in 3-5 days to get you scheduled for your evaluation. If you do not receive a call, please reach out to us at [phone] and request an appointment. ) [facility] PHYSICIAN,OUT OF [Primary Care Provider] - 7 Days (Follow up with your primary care provider within 7 days for further symptom managment.) Saul Lucero MD [Active] - Disposition: HOME Quality - Care Measures CORE MEASURES:: HF
--- NOTE | 2020-03-08 18:39 | PDOC.CPN ---
- Subjective Date: 03/08/20 Time: 17:30 Interval history: Patient without complaints. Team planning discharge. - Review of Systems General: denies: fever/chills, weight/appetite/sleep changes, night sweats, fatigue Respiratory: denies: cough, congestion, shortness of breath, exercise intolerance Cardiovascular: denies: chest pain, palpitation, edema, paroxysmal nocturnal dyspnea, orthopnea Gastrointestinal: denies: nausea, vomiting, diarrhea, constipation, abd pain, GI bleeding Musculoskeletal: denies: pain, tenderness, stiffness, swelling, arthritis/ arthralgias Neurological: denies: numbness, syncope, seizure, weakness - Objective Allergies/Adverse Reactions: Allergies Allergy/AdvReac Type Severity Reaction Status Date / Time adhesive tape Allergy Verified 02/29/20 21:27 Sulfa (Sulfonamide Allergy Verified 06/01/19 02:33 Antibiotics) Vital Signs & Weight: Vital Signs Temp Pulse Pulse Pulse Resp BP BP 03/08/20 15:41 98.4 F 93 16 03/08/20 11:13 97.9 F 87 16 03/08/20 09:35 88 89 155/83 H 157/86 H 03/08/20 08:32 98.3 F 92 15 BP Pulse Ox Pulse Ox Pulse Ox 03/08/20 15:41 149/90 H 92 L 03/08/20 11:13 159/86 H 93 L 03/08/20 09:35 90 L 94 L 03/08/20 08:32 163/83 H 94 L Admit Weight 115 lb Weight 121 lb 9.6 oz - Physical Exam General: alert & oriented x3, appears well, no apparent distress HEENT: mucus membranes moist Neck: supple neck Cardiac: regular rate and rhythm Lungs: clear to auscultation, no wheeze, rales, rhonchi Neuro: grossly intact Abdomen: soft, non-tender Extremities: no edema Skin: clear Musculoskeletal: no pain - Labs Result Diagrams: 03/08/20 10:35 03/08/20 10:35 Troponin/CKMB CK-MB (CK-2) 4.1 ng/mL (0-6.6) 02/28/20 14:42 Troponin I 0.229 ng/mL (< 0.028) H 02/28/20 21:10 - Assessment/Plan Assessment/Plan: 1. Acute on chronic systolic CHF 2. COPD 3. MAT 4. nonobstructive CAD 5. Iron Deficiency Anemia 6. Paroxysmal AF Overall doing well. Will change Losartan to Entresto. Discussed potential cost vs benefits and possibility of applying for PAP if needed. She understands. Hopefully home soon.
== END 2020-03-08 18:10 | disposition home or self-care (01) | DRG 286 ==
LOC: ERS 14:08 → IMCU/EMU 16:30 → 2NO 02-29 18:58
PROVIDERS: ADMIT Family Medicine; ATTEND Internal Medicine
PROC: 5A09357 Assistance with Respiratory Ventilation, Less than 24 Consecutive Hours, Continuous Positive Airway Pressure (ICD-10-PCS; 2020-02-28)
PROC: 4A023N7 Measurement of Cardiac Sampling and Pressure, Left Heart, Percutaneous Approach (ICD-10-PCS; principal; 2020-03-01)
PROC: B2111ZZ Fluoroscopy of Multiple Coronary Arteries using Low Osmolar Contrast (ICD-10-PCS; 2020-03-01)
PROC: B2151ZZ Fluoroscopy of Left Heart using Low Osmolar Contrast (ICD-10-PCS; 2020-03-01)
DX: I13.0 Hypertensive heart and chronic kidney disease with heart failure and stage 1 through stage 4 chronic kidney disease, or unspecified chronic kidney disease (principal); I50.43 Acute on chronic combined systolic (congestive) and diastolic (congestive) heart failure; J96.21 Acute and chronic respiratory failure with hypoxia; I47.1 Supraventricular tachycardia; N30.00 Acute cystitis without hematuria; Z20.822 Contact with and (suspected) exposure to COVID-19; R73.9 Hyperglycemia, unspecified; T38.0X5A Adverse effect of glucocorticoids and synthetic analogues, initial encounter; N18.2 Chronic kidney disease, stage 2 (mild); K64.9 Unspecified hemorrhoids; D50.9 Iron deficiency anemia, unspecified; J43.9 Emphysema, unspecified; M19.90 Unspecified osteoarthritis, unspecified site; F41.9 Anxiety disorder, unspecified; F32.9 Major depressive disorder, single episode, unspecified; F12.10 Cannabis abuse, uncomplicated; F17.210 Nicotine dependence, cigarettes, uncomplicated; I48.0 Paroxysmal atrial fibrillation; I25.10 Atherosclerotic heart disease of native coronary artery without angina pectoris; I07.1 Rheumatic tricuspid insufficiency; I42.9 Cardiomyopathy, unspecified; R63.6 Underweight; Z68.20 Body mass index [BMI] 20.0-20.9, adult; Z28.21 Immunization not carried out because of patient refusal; Z90.49 Acquired absence of other specified parts of digestive tract; Z87.11 Personal history of peptic ulcer disease; Z88.2 Allergy status to sulfonamides; Z91.09 Other allergy status, other than to drugs and biological substances; Z98.51 Tubal ligation status; Z98.0 Intestinal bypass and anastomosis status; Z90.710 Acquired absence of both cervix and uterus; Z79.899 Other long term (current) drug therapy; Z79.51 Long term (current) use of inhaled steroids
CPT/HCPCS: 0240U; 36415; 36416; 36600; 71045; 71046; 76942; 80048; 80053; 82274; 82553; 82607; 82728; 82746; 82805; 83540; 83880; 84443; 84484; 85014; 85018; 85025; 85049; 93005; 93306; 93458; 93798; 94640; 94644; 96365; 96374; 96375; 97139; 99152; J1644; J1650; J1940; J1956; J2250; J2405; J2916; J2920; J3010; J3420; J3475; J3490; J7512; J7611; J7620; Q9967

== ENCOUNTER 2020-03-23 18:58 | Inpatient (IN) | payer MEDICARE, MEDICAID ==
[2020-03-23 19:46] LABS: #Lymphocytes 1.2 thou/uL (1.20-3.40); #Monocytes 0.5 thou/uL (0.11-0.59); #Neutrophils 2.8 thou/uL (1.40-6.50); %Basophils 0.3 % (0.0-1.0); %Lymphocytes 26.4 % (21.0-51.0); %Monocytes 10.4 % (0.0-10.0); %Neutrophils 61.9 % (42.0-75.0); Hemoglobin 10.3 g/dL (12.0-16.0); Mean Corpuscular HGB CONC 31.5 g/dL (32.0-36.0); Mean Corpuscular Hemoglobin 28.6 pg (27.0-31.0); Mean Corpuscular Volume 90.8 fL (78.0-98.0); Mean Platelet Volume 6.7 fL (7.4-10.4); Platelet Count 297 thou/uL (130-400); RBC Distribution Width 20.5 % (11.5-14.5); Red Blood Cell (RBC) Count 3.61 mill/uL (4.20-5.40); White Blood Cell (WBC) Count 4.6 thou/uL (4.8-10.8)
[2020-03-23 19:53] LABS: ALT (SGPT) 13 U/L (8-55); AST (SGOT) 17 U/L (5-34); Albumin 3.4 g/dL (3.4-4.8); Alkaline Phosphatase 127 U/L (40-110); Anion Gap 12 mmol/L (10-20); BUN (Urea Nitrogen) 12 mg/dL (9.8-20.1); Bilirubin, Total 0.3 mg/dL (0.2-1.2); Calc. Creatinine Clearance 0 mL/min (70-130); Calcium 8.3 mg/dL (7.8-10.44); Carbon Dioxide 34 mmol/L (23-31); Chloride 100 mmol/L (98-107); Globulin 2.9 g/dL (2.4-3.5); Glucose 81 mg/dL (80-115); Potassium 4.4 mmol/L (3.5-5.1); Protein, Total 6.3 g/dL (6.0-8.3); Sodium 142 mmol/L (136-145)
[2020-03-23 19:59] LABS: Anisocytosis SLIGHT = 6-15 cells (100X) (0-5/hpf); Hypochromia SLIGHT = 6-15 cells (100X) (0-5/hpf); MDiff Complete? YES; Platelet Morphology Comment Appears Adequate; Polychromasia SLIGHT = 2-3 cells (100X) (0-2/hpf); Target Cells SLIGHT = 2-5 cells (100X) (0-1/hpf); Tear Drops SLIGHT = 2-5 cells (100X) (0-1/hpf)
[2020-03-23] MEDS ORDERED: Nitroglycerin 2% Ointment 1 INCH/1 GM Packet ONE (20:57)
[2020-03-23] MEDS ORDERED: Furosemide 40 MG/4 ML VIAL ONE (20:57)
[2020-03-23] MEDS ORDERED: PROVENTIL INHALER 6.7 G (200 INHALATIONS) ONE (20:59)
[2020-03-23] MEDS ORDERED: Albuterol 200 PUFF (6.7GM INHALER) ONE (21:02)
[2020-03-23 21:54] LABS: Bilirubin Negative (Negative); Blood, Urine Trace (Negative); Clarity Clear (Clear); Glucose, Urine (Dipstick) Normal (Negative); Ketone, Urine Negative (Negative); Leukocyte Negative Leu/uL (Negative); Nitrite Negative (Negative); Protein, Urine (Dipstick) 30 mg/dL (Neg-Trace); Specific Gravity, Urine 1.012 (1.002-1.036); Squamous Epithelial 0-3 HPF (0-3); Urobilinogen Normal mg/dL (Less than 2); WBC/HPF 0-3 HPF (0-3)
[2020-03-23 21:57] LABS: Bacteria/HPF 1+ HPF (None Seen)
[2020-03-23 23:12] LABS: Troponin I 0.016 ng/mL (< 0.028)
[2020-03-23 23:42] LABS: SARS-CoV-2 NAA Rapid Test Not Detected (NotDetected)
[2020-03-24] MEDS ORDERED: cefTRIAXone\\ROCEPHIN 1 GM VIAL ONE (00:47)
[2020-03-24] MEDS ORDERED: methylPREDNISolone Sod Succ 40 MG VIAL ONE ×2 (00:47→06:05)
[2020-03-24] MEDS: methylPREDNISolone Sod Succ 40 MG VIAL IVP SCH ×2 (00:54→06:09)
[2020-03-24] MEDS: cefTRIAXone\\ROCEPHIN 1 GM in Sodium Chloride 0.9% 100 ML IVPB SCH (00:54)
[2020-03-24 02:08] LABS: Troponin I 0.022 ng/mL (< 0.028)
[2020-03-24 05:39] LABS: Anion Gap 16 mmol/L (10-20); BUN (Urea Nitrogen) 11 mg/dL (9.8-20.1); Calc. Creatinine Clearance 0 mL/min (70-130); Calcium 8.9 mg/dL (7.8-10.44); Carbon Dioxide 33 mmol/L (23-31); Chloride 96 mmol/L (98-107); Glucose 200 mg/dL (80-115); Potassium 4.1 mmol/L (3.5-5.1); Sodium 141 mmol/L (136-145)
[2020-03-24 06:37] LABS: #Lymphocytes 0.5 thou/uL (1.20-3.40); #Monocytes 0.1 thou/uL (0.11-0.59); #Neutrophils 3.5 thou/uL (1.40-6.50); %Eosinophils 0.2 % (0.0-10.0); %Lymphocytes 12.8 % (21.0-51.0); %Monocytes 1.5 % (0.0-10.0); %Neutrophils 85.5 % (42.0-75.0); Hemoglobin 11.3 g/dL (12.0-16.0); Mean Corpuscular HGB CONC 30.4 g/dL (32.0-36.0); Mean Corpuscular Hemoglobin 27.4 pg (27.0-31.0); Mean Corpuscular Volume 89.9 fL (78.0-98.0); Mean Platelet Volume 6.9 fL (7.4-10.4); Platelet Count 337 thou/uL (130-400); RBC Distribution Width 20.4 % (11.5-14.5); Red Blood Cell (RBC) Count 4.12 mill/uL (4.20-5.40); White Blood Cell (WBC) Count 4.1 thou/uL (4.8-10.8)
[2020-03-24 06:40] LABS: Anisocytosis SLIGHT = 6-15 cells (100X) (0-5/hpf); Hypochromia SLIGHT = 6-15 cells (100X) (0-5/hpf); MDiff Complete? YES; Stomatocytes SLIGHT = 2-5 cells (100X) (0-1/hpf)
[2020-03-24] MEDS ORDERED: HYDROcodone/Acetaminophen 5/325 mg Tablet PO PRN (06:49)
[2020-03-24] MEDS ORDERED: HYDROcodone/Acetaminophen 5/325 mg Tablet ONE (06:50)
[2020-03-24 07:08] VITALS: BMI 22.1
[2020-03-24] MEDS ORDERED: Furosemide 40 MG/4 ML VIAL ONE (09:07)
[2020-03-24] MEDS: Furosemide 40 MG/4 ML VIAL SLOW IVP SCH (09:09)
[2020-03-24] MEDS ORDERED: Azithromycin 500 MG VIAL ONE (12:15)
[2020-03-24] MEDS: Azithromycin 500 MG in Sodium Chloride 0.9% 250 ML 250 ML IVPB SCH (12:24)
[2020-03-24] MEDS: Apixaban 2.5 MG TAB PO SCH ×2 (14:11→20:59)
[2020-03-24] MEDS: Fioricet 325/50/40 mg Tablet PO PRN ×2 (15:32→21:30)
[2020-03-24] MEDS: Carvedilol 6.25 MG TAB PO SCH (15:37)
[2020-03-24] MEDS: Mometasone 200 MCG/Formoterol 5 MCG 120 PUFF INHALER INH SCH (19:20)
[2020-03-24] MEDS: Temazepam 15 MG CAP PO SCH (21:00)
[2020-03-24] MEDS ORDERED: Non-Formulary Item 1 EACH (Budesonide-Formoterol [Symbicort 160-4.5] 160 MG/4.5 MG Aer) INH SCH (21:00)
[2020-03-25] MEDS: cefTRIAXone\\ROCEPHIN 1 GM in Sodium Chloride 0.9% 100 ML IVPB SCH (00:13)
[2020-03-25] MEDS: Mometasone 200 MCG/Formoterol 5 MCG 120 PUFF INHALER INH SCH ×2 (07:05→18:44)
[2020-03-25] MEDS: Apixaban 2.5 MG TAB PO SCH ×2 (08:53→20:57)
[2020-03-25] MEDS: Furosemide 40 MG/4 ML VIAL SLOW IVP SCH (08:53)
[2020-03-25] MEDS: Losartan 25 MG TAB PO SCH (08:53)
[2020-03-25] MEDS: Carvedilol 6.25 MG TAB PO SCH ×2 (08:53→16:56)
[2020-03-25] MEDS: Citalopram 20 MG TAB PO SCH (08:53)
[2020-03-25] MEDS: methylPREDNISolone Sod Succ 40 MG VIAL IVP SCH (08:54)
[2020-03-25] MEDS ORDERED: Non-Formulary Item 1 EACH (Citalopram Hydrobromide [Citalopram Hbr] 40 MG Tablet) PO SCH (09:00)
[2020-03-25] MEDS ORDERED: FLU VACC QS2020-21(65YR UP)/PF 240 MCG/0.7 ML SYRINGE IM ONE (09:00)
[2020-03-25] MEDS ORDERED: Acetaminophen 325 MG TAB PO PRN (10:01)
[2020-03-25] MEDS: Acetaminophen/Codeine 30-300mg Tablet PO PRN ×2 (11:12→20:57)
[2020-03-25] MEDS: Azithromycin 500 MG in Sodium Chloride 0.9% 250 ML 250 ML IVPB SCH (11:57)
[2020-03-25] MEDS: Temazepam 15 MG CAP PO SCH (20:57)
[2020-03-26] MEDS: cefTRIAXone\\ROCEPHIN 1 GM in Sodium Chloride 0.9% 100 ML IVPB SCH (00:13)
[2020-03-26] MEDS: Acetaminophen/Codeine 30-300mg Tablet PO PRN ×2 (03:37→09:45)
[2020-03-26] MEDS: Mometasone 200 MCG/Formoterol 5 MCG 120 PUFF INHALER INH SCH ×2 (06:50→19:19)
[2020-03-26] MEDS: Losartan 25 MG TAB PO SCH (08:33)
[2020-03-26] MEDS: Furosemide 40 MG/4 ML VIAL SLOW IVP SCH (08:34)
[2020-03-26] MEDS: Citalopram 20 MG TAB PO SCH (08:34)
[2020-03-26] MEDS: Carvedilol 6.25 MG TAB PO SCH ×2 (08:34→17:04)
[2020-03-26] MEDS: methylPREDNISolone Sod Succ 40 MG VIAL IVP SCH (08:34)
[2020-03-26] MEDS: Apixaban 2.5 MG TAB PO SCH ×2 (08:34→20:09)
[2020-03-26] MEDS: Azithromycin 500 MG in Sodium Chloride 0.9% 250 ML 250 ML IVPB SCH (11:06)
[2020-03-26] MEDS: Fioricet 325/50/40 mg Tablet PO PRN ×2 (17:15→22:38)
[2020-03-26] MEDS: Temazepam 15 MG CAP PO SCH (20:09)
[2020-03-27] MEDS: cefTRIAXone\\ROCEPHIN 1 GM in Sodium Chloride 0.9% 100 ML IVPB SCH (01:00)
[2020-03-27] MEDS: Acetaminophen/Codeine 30-300mg Tablet PO PRN ×2 (05:55→11:33)
[2020-03-27] MEDS ORDERED: hydrALAZINE 20 MG/ML VIAL SLOW IVP PRN (05:56)
[2020-03-27] MEDS: Mometasone 200 MCG/Formoterol 5 MCG 120 PUFF INHALER INH SCH ×2 (08:26→18:52)
[2020-03-27] MEDS: Losartan 25 MG TAB PO SCH (08:53)
[2020-03-27] MEDS: methylPREDNISolone Sod Succ 40 MG VIAL IVP SCH (08:53)
[2020-03-27] MEDS: Apixaban 2.5 MG TAB PO SCH ×2 (08:53→20:42)
[2020-03-27] MEDS: Carvedilol 6.25 MG TAB PO SCH (08:53)
[2020-03-27] MEDS: Citalopram 20 MG TAB PO SCH (08:53)
[2020-03-27] MEDS: Furosemide 40 MG/4 ML VIAL SLOW IVP SCH (08:54)
[2020-03-27] MEDS ORDERED: Carvedilol 6.25 MG TAB PO SCH (10:45)
[2020-03-27] MEDS ORDERED: Losartan 25 MG TAB PO SCH (10:45)
[2020-03-27] MEDS: Azithromycin 500 MG in Sodium Chloride 0.9% 250 ML 250 ML IVPB SCH (12:50)
[2020-03-27 14:45] LABS: Hemoglobin 12.3 g/dL (12.0-16.0); Platelet Count 460 thou/uL (130-400)
[2020-03-27] MEDS: Carvedilol 25 MG TAB PO SCH (17:12)
[2020-03-27] MEDS: Temazepam 15 MG CAP PO SCH (20:39)
[2020-03-27] MEDS: Fioricet 325/50/40 mg Tablet PO PRN (20:39)
[2020-03-28] MEDS: cefTRIAXone\\ROCEPHIN 1 GM in Sodium Chloride 0.9% 100 ML IVPB SCH (02:14)
[2020-03-28] MEDS: Fioricet 325/50/40 mg Tablet PO PRN (04:03)
[2020-03-28] MEDS ORDERED: Furosemide 40 MG TAB PO SCH (07:30)
[2020-03-28 07:31] VITALS: BP 163/86; TEMP 98.8
[2020-03-28] MEDS ORDERED: predniSONE 20 MG TAB PO SCH (08:00)
[2020-03-28] MEDS: Citalopram 20 MG TAB PO SCH (08:13)
[2020-03-28] MEDS: Carvedilol 25 MG TAB PO SCH (08:14)
[2020-03-28] MEDS: Apixaban 2.5 MG TAB PO SCH (08:14)
[2020-03-28] MEDS ORDERED: Losartan 25 MG TAB PO SCH (09:00)
[2020-03-29] MEDS ORDERED: predniSONE 20 MG TAB PO SCH (08:00)
== END 2020-03-28 11:49 | disposition home health service (06) | DRG 291 ==
LOC: ERS 18:58 → ERHOLD 22:33 → 2NO 03-24 13:37
PROVIDERS: ADMIT Student in an Organized Health Care Education/Training Program; ATTEND Internal Medicine
PROC: 8E0ZXY6 Isolation (ICD-10-PCS; principal; 2020-03-23)
DX: I11.0 Hypertensive heart disease with heart failure (principal); J96.01 Acute respiratory failure with hypoxia; Z20.822 Contact with and (suspected) exposure to COVID-19; I50.43 Acute on chronic combined systolic (congestive) and diastolic (congestive) heart failure; J43.9 Emphysema, unspecified; F32.9 Major depressive disorder, single episode, unspecified; F17.210 Nicotine dependence, cigarettes, uncomplicated; M19.90 Unspecified osteoarthritis, unspecified site; F41.9 Anxiety disorder, unspecified; F12.10 Cannabis abuse, uncomplicated; D64.9 Anemia, unspecified; Z28.21 Immunization not carried out because of patient refusal; Z90.49 Acquired absence of other specified parts of digestive tract; I25.2 Old myocardial infarction; Z87.11 Personal history of peptic ulcer disease; Z98.51 Tubal ligation status; Z79.899 Other long term (current) drug therapy; Z79.01 Long term (current) use of anticoagulants; Z79.51 Long term (current) use of inhaled steroids
CPT/HCPCS: 0240U; 36415; 71045; 80048; 80053; 81003; 81015; 82550; 82565; 83880; 84484; 85014; 85018; 85025; 85049; 93005; 93798; 94640; 96374; 97139; J0360; J0456; J0696; J1940; J2920; J3490; J7050; J7512; J7620

== ENCOUNTER 2020-05-20 21:14 | Inpatient (IN) | payer MEDICARE, MEDICAID ==
[2020-05-20 22:01] LABS: Hemoglobin 12.3 g/dL (12.0-16.0); Mean Corpuscular HGB CONC 31.3 g/dL (32.0-36.0); Mean Corpuscular Hemoglobin 28.7 pg (27.0-31.0); Mean Corpuscular Volume 91.8 fL (78.0-98.0); Mean Platelet Volume 7.8 fL (7.4-10.4); Platelet Count 204 thou/uL (130-400); RBC Distribution Width 17.4 % (11.5-14.5); Red Blood Cell (RBC) Count 4.28 mill/uL (4.20-5.40); White Blood Cell (WBC) Count 12.2 thou/uL (4.8-10.8)
[2020-05-20 22:14] LABS: Band 8 % (5-11); Lymphocytes 6 % (21-51); MDiff Complete? YES; Monocytes 17 % (0-10); Neutrophil 67 % (42-75); Platelet Morphology Comment Appears Adequate; RBC Morphology Normal; Reactive Lymphocytes 2 % (0-10)
[2020-05-20] MEDS ORDERED: Albuterol 200 PUFF (6.7GM INHALER) ONE (22:16)
[2020-05-20] MEDS ORDERED: Azithromycin 500 MG VIAL ONE (22:16)
[2020-05-20] MEDS ORDERED: Morphine 2 MG/ML VIAL ONE (22:16)
[2020-05-20] MEDS ORDERED: cefTRIAXone\\ROCEPHIN 2 GM VIAL ONE (22:16)
[2020-05-20 22:18] LABS: ALT (SGPT) 7 U/L (8-55); AST (SGOT) 16 U/L (5-34); Albumin 3.3 g/dL (3.4-4.8); Alkaline Phosphatase 106 U/L (40-110); Anion Gap 13 mmol/L (10-20); BUN (Urea Nitrogen) 21 mg/dL (9.8-20.1); Bilirubin, Total 0.6 mg/dL (0.2-1.2); Calc. Creatinine Clearance 0 mL/min (70-130); Calcium 8.3 mg/dL (7.8-10.44); Carbon Dioxide 21 mmol/L (23-31); Chloride 102 mmol/L (98-107); Globulin 2.6 g/dL (2.4-3.5); Glucose 161 mg/dL (80-115); Potassium 3.7 mmol/L (3.5-5.1); Protein, Total 5.9 g/dL (5.8-8.1); Sodium 132 mmol/L (136-145)
[2020-05-20 23:04] LABS: Bilirubin Negative (Negative); Blood, Urine 1+ (Negative); Clarity Turbid (Clear); Glucose, Urine (Dipstick) Normal (Negative); Ketone, Urine Negative (Negative); Leukocyte 250 Leu/uL (Negative); Nitrite 2+ (Negative); Protein, Urine (Dipstick) 100 mg/dL (Neg-Trace); Renal Epithelial 0-3 HPF (None Seen); Specific Gravity, Urine 1.014 (1.002-1.036); Squamous Epithelial 0-3 HPF (0-3); Urobilinogen Normal mg/dL (Less than 2); WBC/HPF Greater than 50 HPF (0-3)
[2020-05-20 23:07] LABS: Bacteria/HPF 1+ HPF (None Seen)
[2020-05-20 23:53] LABS: SARS-CoV-2 NAA Rapid Test Not Detected (NotDetected)
[2020-05-21 01:14] VITALS: BMI 16.8
[2020-05-21] MEDS ORDERED: Ondansetron ODT 4 MG TAB SL PRN (01:15)
[2020-05-21] MEDS ORDERED: Ondansetron PF 4 MG/2 ML Vial IVP PRN (01:15)
[2020-05-21] MEDS: Acetaminophen 325 MG TAB PO PRN ×2 (01:52→09:50)
[2020-05-21] MEDS ORDERED: Furosemide 40 MG/4 ML VIAL SLOW IVP SCH (02:15)
[2020-05-21] MEDS ORDERED: metroNIDAZOLE 500 MG in Premix Bag 1 BAG IVPB SCH (04:00)
[2020-05-21 07:19] LABS: Anion Gap 10 mmol/L (10-20); BUN (Urea Nitrogen) 19 mg/dL (9.8-20.1); Calc. Creatinine Clearance 49 mL/min (70-130); Calcium 8.6 mg/dL (7.8-10.44); Carbon Dioxide 23 mmol/L (23-31); Chloride 106 mmol/L (98-107); Glucose 145 mg/dL (80-115); Potassium 3.8 mmol/L (3.5-5.1); Sodium 135 mmol/L (136-145)
[2020-05-21 07:24] LABS: Hemoglobin 11.9 g/dL (12.0-16.0); Mean Corpuscular HGB CONC 31.5 g/dL (32.0-36.0); Mean Corpuscular Hemoglobin 29.2 pg (27.0-31.0); Mean Corpuscular Volume 92.7 fL (78.0-98.0); Platelet Count 192 thou/uL (130-400); RBC Distribution Width 17.4 % (11.5-14.5); Red Blood Cell (RBC) Count 4.08 mill/uL (4.20-5.40)
[2020-05-21] MEDS: Furosemide 40 MG/4 ML VIAL SLOW IVP SCH (08:05)
[2020-05-21] MEDS ORDERED: Enoxaparin Sodium 40 MG/0.4 ML SYRINGE SC SCH (09:00)
[2020-05-21] MEDS ORDERED: methylPREDNISolone Sod Succ 40 MG VIAL IVP SCH (09:00)
[2020-05-21 09:47] LABS: Band 13 % (5-11); Lymphocytes 1 % (21-51); MDiff Complete? YES; Neutrophil 85 % (42-75); Platelet Morphology Comment Appears Adequate; Polychromasia SLIGHT = 2-3 cells (100X) (0-2/hpf); Reactive Lymphocytes 1 % (0-10)
[2020-05-21] MEDS ORDERED: Iopamidol-370 76% 500 ML 1 ML ONE (12:04)
[2020-05-21] MEDS ORDERED: Albuterol Sulfate 2.5 mg/3 ml Neb NEB PRN (13:44)
[2020-05-21] MEDS: HYDROcodone/Acetaminophen 5/325 mg Tablet PO PRN ×2 (14:16→22:50)
[2020-05-21] MEDS: methylPREDNISolone Sod Succ 40 MG VIAL IVP SCH ×2 (17:17→22:51)
[2020-05-21] MEDS: Carvedilol 6.25 MG TAB PO SCH (17:17)
[2020-05-21] MEDS: Apixaban 2.5 MG TAB PO SCH (20:36)
[2020-05-21] MEDS: Cefepime 2 GM in Sodium Chloride 0.9% 100 ML IVPB SCH (20:36)
[2020-05-21] MEDS ORDERED: Temazepam 15 MG CAP PO SCH (21:00)
[2020-05-21] MEDS ORDERED: FLU VACC QS2020-21(65YR UP)/PF 240 MCG/0.7 ML SYRINGE IM ONE (21:00)
[2020-05-21] MEDS ORDERED: cefTRIAXone\\ROCEPHIN 1 GM in Sodium Chloride 0.9% 100 ML IVPB SCH (22:00)
[2020-05-22] MEDS: methylPREDNISolone Sod Succ 40 MG VIAL IVP SCH ×4 (05:19→23:13)
[2020-05-22 05:46] LABS: Legionella Urinary Ag Negative (Negative); Strep pneumo Urine Ag NEGATIVE (NEGATIVE)
[2020-05-22 06:04] LABS: #Basophils 0.2 thou/uL (0.0-0.2); #Lymphocytes 0.3 thou/uL (1.20-3.40); #Monocytes 0.4 thou/uL (0.11-0.59); #Neutrophils 9.7 thou/uL (1.40-6.50); %Eosinophils 0.1 % (0.0-10.0); %Lymphocytes 2.4 % (21.0-51.0); %Monocytes 3.5 % (0.0-10.0); Hemoglobin 11.6 g/dL (12.0-16.0); Mean Corpuscular HGB CONC 31.3 g/dL (32.0-36.0); Mean Corpuscular Hemoglobin 28.8 pg (27.0-31.0); Mean Platelet Volume 8.1 fL (7.4-10.4); Platelet Count 228 thou/uL (130-400); RBC Distribution Width 17.5 % (11.5-14.5); Red Blood Cell (RBC) Count 4.04 mill/uL (4.20-5.40); White Blood Cell (WBC) Count 10.5 thou/uL (4.8-10.8)
[2020-05-22 06:32] LABS: Anion Gap 12 mmol/L (10-20); BUN (Urea Nitrogen) 27 mg/dL (9.8-20.1); Calc. Creatinine Clearance 44 mL/min (70-130); Calcium 8.7 mg/dL (7.8-10.44); Carbon Dioxide 24 mmol/L (23-31); Chloride 101 mmol/L (98-107); Glucose 133 mg/dL (80-115); Potassium 3.7 mmol/L (3.5-5.1); Sodium 133 mmol/L (136-145)
[2020-05-22] MEDS: Carvedilol 6.25 MG TAB PO SCH ×2 (08:11→16:50)
[2020-05-22] MEDS: Citalopram 20 MG TAB PO SCH (08:11)
[2020-05-22] MEDS: Apixaban 2.5 MG TAB PO SCH ×2 (08:11→20:22)
[2020-05-22] MEDS: HYDROcodone/Acetaminophen 5/325 mg Tablet PO PRN (08:11)
[2020-05-22] MEDS: Furosemide 40 MG/4 ML VIAL SLOW IVP SCH (08:12)
[2020-05-22] MEDS: Losartan 25 MG TAB PO SCH (08:12)
[2020-05-22] MEDS: Cefepime 2 GM in Sodium Chloride 0.9% 100 ML IVPB SCH ×2 (08:12→20:22)
[2020-05-22] MEDS ORDERED: Non-Formulary Item 1 EACH (Citalopram Hydrobromide [Citalopram Hbr] 40 MG Tablet) PO SCH (09:00)
[2020-05-22] MEDS: Nicotine 14 MG PATCH TD SCH (15:16)
[2020-05-22] MEDS: Temazepam 15 MG CAP PO SCH (20:21)
[2020-05-23] MEDS: HYDROcodone/Acetaminophen 5/325 mg Tablet PO PRN ×3 (04:27→21:54)
[2020-05-23] MEDS: methylPREDNISolone Sod Succ 40 MG VIAL IVP SCH ×4 (04:40→23:28)
[2020-05-23 06:14] LABS: #Lymphocytes 0.4 thou/uL (1.20-3.40); #Monocytes 0.2 thou/uL (0.11-0.59); #Neutrophils 7.1 thou/uL (1.40-6.50); %Lymphocytes 4.7 % (21.0-51.0); %Monocytes 2.8 % (0.0-10.0); %Neutrophils 92.4 % (42.0-75.0); Hemoglobin 11.6 g/dL (12.0-16.0); Mean Corpuscular Hemoglobin 29.6 pg (27.0-31.0); Mean Corpuscular Volume 92.6 fL (78.0-98.0); Mean Platelet Volume 7.7 fL (7.4-10.4); Platelet Count 232 thou/uL (130-400); RBC Distribution Width 17.2 % (11.5-14.5); Red Blood Cell (RBC) Count 3.93 mill/uL (4.20-5.40); White Blood Cell (WBC) Count 7.6 thou/uL (4.8-10.8)
[2020-05-23 06:36] LABS: Anion Gap 15 mmol/L (10-20); BUN (Urea Nitrogen) 38 mg/dL (9.8-20.1); Calc. Creatinine Clearance 36 mL/min (70-130); Carbon Dioxide 20 mmol/L (23-31); Chloride 100 mmol/L (98-107); Glucose 237 mg/dL (80-115); Sodium 132 mmol/L (136-145)
[2020-05-23] MEDS: Cefepime 2 GM in Sodium Chloride 0.9% 100 ML IVPB SCH ×2 (09:06→21:45)
[2020-05-23] MEDS: Carvedilol 6.25 MG TAB PO SCH ×2 (09:06→17:45)
[2020-05-23] MEDS: Apixaban 2.5 MG TAB PO SCH ×2 (09:07→21:47)
[2020-05-23] MEDS: Furosemide 40 MG/4 ML VIAL SLOW IVP SCH (09:07)
[2020-05-23] MEDS: Losartan 25 MG TAB PO SCH (09:07)
[2020-05-23] MEDS: Citalopram 20 MG TAB PO SCH (09:07)
[2020-05-23] MEDS: Nicotine 14 MG PATCH TD SCH (17:46)
[2020-05-23] MEDS: Temazepam 15 MG CAP PO SCH (21:47)
[2020-05-24] MEDS ORDERED: hydrALAZINE 20 MG/ML VIAL SLOW IVP SCH (04:30)
[2020-05-24 06:35] LABS: Anion Gap 16 mmol/L (10-20); BUN (Urea Nitrogen) 38 mg/dL (9.8-20.1); Calc. Creatinine Clearance 48 mL/min (70-130); Calcium 8.3 mg/dL (7.8-10.44); Carbon Dioxide 22 mmol/L (23-31); Chloride 102 mmol/L (98-107); Glucose 151 mg/dL (80-115); Potassium 3.7 mmol/L (3.5-5.1); Sodium 136 mmol/L (136-145)
[2020-05-24] MEDS: HYDROcodone/Acetaminophen 5/325 mg Tablet PO PRN ×4 (07:08→22:03)
[2020-05-24] MEDS: methylPREDNISolone Sod Succ 40 MG VIAL IVP SCH ×3 (07:09→17:24)
[2020-05-24] MEDS: Furosemide 40 MG TAB PO SCH (07:09)
[2020-05-24] MEDS: Losartan 25 MG TAB PO SCH (08:25)
[2020-05-24] MEDS: Citalopram 20 MG TAB PO SCH (08:25)
[2020-05-24] MEDS: Carvedilol 6.25 MG TAB PO SCH ×2 (08:26→17:23)
[2020-05-24] MEDS: Cefepime 2 GM in Sodium Chloride 0.9% 100 ML IVPB SCH ×2 (08:26→20:55)
[2020-05-24] MEDS: Apixaban 2.5 MG TAB PO SCH ×2 (08:26→20:48)
[2020-05-24] MEDS: Nicotine 14 MG PATCH TD SCH (17:29)
[2020-05-24] MEDS ORDERED: hydrALAZINE 20 MG/ML VIAL SLOW IVP PRN (19:43)
[2020-05-24] MEDS: Temazepam 15 MG CAP PO SCH (20:50)
[2020-05-25] MEDS: methylPREDNISolone Sod Succ 40 MG VIAL IVP SCH ×3 (00:51→12:19)
[2020-05-25] MEDS: HYDROcodone/Acetaminophen 5/325 mg Tablet PO PRN ×3 (02:22→12:19)
[2020-05-25 04:33] VITALS: TEMP 98.4
[2020-05-25 08:07] VITALS: BP 164/76
[2020-05-25] MEDS: Citalopram 20 MG TAB PO SCH (08:12)
[2020-05-25] MEDS: Carvedilol 6.25 MG TAB PO SCH (08:12)
[2020-05-25] MEDS: Apixaban 2.5 MG TAB PO SCH (08:12)
[2020-05-25] MEDS: Furosemide 40 MG TAB PO SCH (08:12)
[2020-05-25] MEDS: Cefepime 2 GM in Sodium Chloride 0.9% 100 ML IVPB SCH (08:12)
[2020-05-25] MEDS: Losartan 25 MG TAB PO SCH (08:12)
[2020-05-25] MEDS: Nicotine 14 MG PATCH TD SCH (15:08)
== END 2020-05-25 17:00 | disposition home or self-care (01) | DRG 871 ==
LOC: ERS 21:14 → T4-B 23:42
PROVIDERS: ADMIT Student in an Organized Health Care Education/Training Program; ATTEND Family Medicine
DX: A41.51 Sepsis due to Escherichia coli [E. coli] (principal); J96.21 Acute and chronic respiratory failure with hypoxia; J44.1 Chronic obstructive pulmonary disease with (acute) exacerbation; I50.22 Chronic systolic (congestive) heart failure; N30.00 Acute cystitis without hematuria; E44.0 Moderate protein-calorie malnutrition; Z68.1 Body mass index [BMI] 19.9 or less, adult; K21.9 Gastro-esophageal reflux disease without esophagitis; I25.2 Old myocardial infarction; Z99.81 Dependence on supplemental oxygen; Z88.1 Allergy status to other antibiotic agents; Z91.048 Other nonmedicinal substance allergy status; Z79.01 Long term (current) use of anticoagulants; Z79.52 Long term (current) use of systemic steroids; Z98.84 Bariatric surgery status; Z98.51 Tubal ligation status; Z90.710 Acquired absence of both cervix and uterus; Z90.49 Acquired absence of other specified parts of digestive tract; F17.210 Nicotine dependence, cigarettes, uncomplicated; I11.0 Hypertensive heart disease with heart failure; R19.7 Diarrhea, unspecified; I25.5 Ischemic cardiomyopathy; R53.81 Other malaise; Z71.6 Tobacco abuse counseling
CPT/HCPCS: 0240U; 36415; 51701; 71045; 74177; 80048; 80053; 81003; 81015; 83605; 83735; 84145; 85025; 86140; 87040; 87077; 87086; 87149; 87186; 87324; 87449; 87899; 93005; 94640; 96365; 96375; J0360; J0456; J0692; J0696; J1650; J1940; J1956; J2270; J2920; J3490; J7620; Q9967

== ENCOUNTER 2021-04-16 10:15 | Inpatient (IN) | payer MEDICARE, MEDICAID ==
[2021-04-16] MEDS ORDERED: Boostrix 0.5 ML (Tdap) VIAL ONE (11:11)
[2021-04-16] MEDS ORDERED: Fentanyl 100 MCG/2 ML VIAL ONE ×2 (11:49→15:01)
[2021-04-16] MEDS ORDERED: Fentanyl 250 MCG/5 ML VIAL ONE (12:10)
[2021-04-16 13:08] LABS: #Lymphocytes 1.5 thou/uL (1.20-3.40); #Monocytes 0.4 thou/uL (0.11-0.59); #Neutrophils 6.9 thou/uL (1.40-6.50); %Basophils 0.3 % (0.0-1.0); %Eosinophils 0.2 % (0.0-10.0); %Lymphocytes 16.5 % (21.0-51.0); %Monocytes 4.7 % (0.0-10.0); %Neutrophils 78.2 % (42.0-75.0); Hemoglobin 13.5 g/dL (12.0-16.0); Mean Corpuscular HGB CONC 31.7 g/dL (32.0-36.0); Mean Corpuscular Hemoglobin 31.4 pg (27.0-31.0); Mean Corpuscular Volume 99.1 fL (78.0-98.0); Mean Platelet Volume 7.2 fL (7.4-10.4); Platelet Count 298 thou/uL (130-400); RBC Distribution Width 14.8 % (11.5-14.5); Red Blood Cell (RBC) Count 4.31 mill/uL (4.20-5.40); White Blood Cell (WBC) Count 8.9 thou/uL (4.8-10.8)
[2021-04-16 13:17] LABS: ALT (SGPT) 7 U/L (8-55); AST (SGOT) 14 U/L (5-34); Albumin 3.6 g/dL (3.4-4.8); Alkaline Phosphatase 80 U/L (40-110); Anion Gap 16 mmol/L (10-20); BUN (Urea Nitrogen) 15 mg/dL (9.8-20.1); Bilirubin, Total 0.4 mg/dL (0.2-1.2); Calc. Creatinine Clearance 0 mL/min (70-130); Calcium 8.6 mg/dL (7.8-10.44); Carbon Dioxide 22 mmol/L (23-31); Chloride 104 mmol/L (98-107); Globulin 2.6 g/dL (2.4-3.5); Glucose 135 mg/dL (80-115); Potassium 4.3 mmol/L (3.5-5.1); Protein, Total 6.2 g/dL (5.8-8.1); Sodium 138 mmol/L (136-145)
[2021-04-16 14:18] LABS: Bacteria/HPF None Seen HPF (None Seen); Bilirubin Negative (Negative); Blood, Urine Negative (Negative); Clarity Clear (Clear); Glucose, Urine (Dipstick) Normal (Negative); Ketone, Urine Negative (Negative); Leukocyte Negative Leu/uL (Negative); Nitrite Negative (Negative); Protein, Urine (Dipstick) 30 mg/dL (Neg-Trace); RBC/HPF 0-3 HPF (0-3); Squamous Epithelial 0-3 HPF (0-3); Urobilinogen Normal mg/dL (Less than 2); WBC/HPF 0-3 HPF (0-3); pH, Urine 6.5 (5.0-9.0)
[2021-04-16] MEDS ORDERED: Ondansetron PF 4 MG/2 ML Vial ONE (15:22)
[2021-04-16 16:58] LABS: Amphetamine Not Detected (NotDetected); Barbiturates Screen Not Detected (NotDetected); Benzodiazepine Screen Not Detected (NotDetected); Cocaine Metabolite Screen Not Detected (NotDetected); Methadone Not Detected (NotDetected); Methamphetamine Not Detected (NotDetected); Opiate Screen Not Detected (NotDetected); Oxycodone Screen Not Detected (NotDetected); Phencyclidine (PCP) Not Detected (NotDetected); THC/Cannabinoid Screen Not Detected (NotDetected); Tricyclic Screen Not Detected (NotDetected)
[2021-04-16] MEDS ORDERED: hydrALAZINE 20 MG/ML VIAL ONE ×3 (17:01→17:11)
[2021-04-16 17:06] LABS: Alcohol Less than 10 mg/dL (Less than 10); Magnesium 2.1 mg/dL (1.6-2.6); Phosphorus 4.5 mg/dL (2.3-4.7)
[2021-04-16 17:11] LABS: INR-International Normal Ratio 1.2; Prothrombin Time 15.3 sec (12.0-14.7)
[2021-04-16] MEDS ORDERED: Dextrose 50% Abboject 50 ML SYRINGE SLOW IVP PRN (17:30)
[2021-04-16] MEDS ORDERED: Dextrose 5% in Water 1,000 ML IV PRN (17:30)
[2021-04-16] MEDS ORDERED: Morphine 2 MG/ML VIAL SLOW IVP PRN (17:30)
[2021-04-16] MEDS ORDERED: traMADol HCl 50 MG TAB PO PRN (17:47)
[2021-04-16 19:16] VITALS: BMI 15.1
[2021-04-16] MEDS: Senokot S 8.6-50 MG TAB PO SCH (20:14)
[2021-04-16] MEDS: hydrALAZINE 10 MG TAB PO SCH (20:15)
[2021-04-16] MEDS: traMADol HCl 50 MG TAB PO PRN (20:15)
[2021-04-16] MEDS ORDERED: Metoprolol Tartrate 25 MG TAB PO SCH (21:00)
[2021-04-16] MEDS ORDERED: Famotidine 20 MG TAB PO SCH (21:00)
[2021-04-16] MEDS: Acetaminophen 500 MG TAB PO SCH ×2 (22:28→22:29)
[2021-04-16] MEDS: Morphine 4 MG/ML VIAL SLOW IVP PRN (22:28)
[2021-04-16 23:42] LABS: SARS-CoV-2 NAA Rapid Test DETECTED (NotDetected)
[2021-04-17] MEDS: Morphine 4 MG/ML VIAL SLOW IVP PRN ×7 (00:57→23:49)
[2021-04-17 05:08] LABS: #Lymphocytes 1.9 thou/uL (1.20-3.40); #Monocytes 0.7 thou/uL (0.11-0.59); #Neutrophils 4.1 thou/uL (1.40-6.50); %Basophils 0.1 % (0.0-1.0); %Eosinophils 0.2 % (0.0-10.0); %Lymphocytes 28.1 % (21.0-51.0); %Monocytes 10.2 % (0.0-10.0); %Neutrophils 61.4 % (42.0-75.0); Hemoglobin 12.5 g/dL (12.0-16.0); Mean Corpuscular HGB CONC 30.4 g/dL (32.0-36.0); Mean Corpuscular Hemoglobin 30.4 pg (27.0-31.0); Mean Corpuscular Volume 99.8 fL (78.0-98.0); Mean Platelet Volume 7.5 fL (7.4-10.4); Platelet Count 282 thou/uL (130-400); Red Blood Cell (RBC) Count 4.12 mill/uL (4.20-5.40); White Blood Cell (WBC) Count 6.7 thou/uL (4.8-10.8)
[2021-04-17 05:25] LABS: Anion Gap 7 mmol/L (10-20); BUN (Urea Nitrogen) 17 mg/dL (9.8-20.1); Calc. Creatinine Clearance 40 mL/min (70-130); Calcium 8.7 mg/dL (7.8-10.44); Carbon Dioxide 31 mmol/L (23-31); Chloride 104 mmol/L (98-107); Glucose 90 mg/dL (80-115); Magnesium 2.1 mg/dL (1.6-2.6); Phosphorus 4.3 mg/dL (2.3-4.7); Potassium 4.5 mmol/L (3.5-5.1); Sodium 137 mmol/L (136-145)
[2021-04-17] MEDS: hydrALAZINE 10 MG TAB PO SCH ×4 (06:24→21:00)
[2021-04-17] MEDS: Acetaminophen 500 MG TAB PO SCH ×4 (06:25→23:29)
[2021-04-17] MEDS ORDERED: Ipratropium/Albuterol Sulfate 4 GM AER IH PRN (07:01)
[2021-04-17] MEDS ORDERED: Carvedilol 6.25 MG TAB PO SCH (08:00)
[2021-04-17] MEDS ORDERED: FLU VACC QS2021-22(65YR UP)/PF 240 MCG/0.7 ML SYRINGE IM ONE (09:00)
[2021-04-17] MEDS ORDERED: Non-Formulary Item 1 EACH (Budesonide-Formoterol [Symbicort 160-4.5] 160 MG/4.5 MG Aer) INH SCH (09:00)
[2021-04-17] MEDS ORDERED: Non-Formulary Item 1 EACH (Tiotropium Bromide [Spiriva] 18 MCG Cap.W.Dev) PO SCH (09:00)
[2021-04-17] MEDS: Carvedilol 6.25 MG TAB PO SCH ×2 (09:24→17:20)
[2021-04-17] MEDS: Senokot S 8.6-50 MG TAB PO SCH ×2 (09:35→21:09)
[2021-04-17] MEDS: Polyethylene Glycol 3350 17 GM Packet PO SCH (09:35)
[2021-04-17] MEDS ORDERED: ceFAZolin 2 GM/Dextrose 50 ML 2 GM in Premix Bag 1 BAG IVPB SCH (10:15)
[2021-04-17] MEDS ORDERED: CEFAZOLIN 2 GM in Sodium Chloride 0.9% 100 ML IVPB SCH (10:15)
[2021-04-17] MEDS: Ipratropium/Albuterol Sulfate 4 GM AER IH SCH ×3 (10:46→22:05)
[2021-04-17] MEDS: Ondansetron PF 4 MG/2 ML Vial IVP PRN ×2 (10:48→16:42)
[2021-04-17] MEDS: traMADol HCl 50 MG TAB PO PRN (10:49)
[2021-04-17] MEDS ORDERED: Sodium Chloride 0.9% 100 ML ONE (17:23)
[2021-04-17] MEDS ORDERED: CEFAZOLIN 1 GM VIAL ONE (17:23)
[2021-04-17] MEDS ORDERED: Ketamine 50 MG/ML (10ML VIAL) ONE (17:27)
[2021-04-17] MEDS ORDERED: PROPOFOL 200 MG/20 ML VIAL ONE (17:46)
[2021-04-17] MEDS ORDERED: Ondansetron PF 4 MG/2 ML Vial ONE (17:46)
[2021-04-17] MEDS ORDERED: Dexamethasone 20 MG/5 ML VIAL ONE (17:46)
[2021-04-17] MEDS ORDERED: PHENYLEPHRINE-NS 100 MCG/ML 10 ML SYRINGE ONE (17:46)
[2021-04-17] MEDS ORDERED: Fentanyl 250 MCG/5 ML VIAL ONE (17:57)
[2021-04-17] MEDS ORDERED: hydrALAZINE 20 MG/ML VIAL ONE (19:01)
[2021-04-17] MEDS: Mometasone 200 MCG/Formoterol 5 MCG 120 PUFF INHALER INH SCH (22:06)
[2021-04-18] MEDS: Ipratropium/Albuterol Sulfate 4 GM AER IH SCH ×3 (00:41→19:16)
[2021-04-18 05:55] LABS: #Lymphocytes 0.6 thou/uL (1.20-3.40); #Monocytes 0.4 thou/uL (0.11-0.59); #Neutrophils 8.1 thou/uL (1.40-6.50); %Eosinophils 0.1 % (0.0-10.0); %Lymphocytes 6.6 % (21.0-51.0); %Monocytes 4.4 % (0.0-10.0); %Neutrophils 88.9 % (42.0-75.0); Hemoglobin 12.1 g/dL (12.0-16.0); Mean Corpuscular HGB CONC 32.8 g/dL (32.0-36.0); Mean Corpuscular Hemoglobin 32.7 pg (27.0-31.0); Mean Corpuscular Volume 99.6 fL (78.0-98.0); Platelet Count 212 thou/uL (130-400); RBC Distribution Width 14.8 % (11.5-14.5); Red Blood Cell (RBC) Count 3.69 mill/uL (4.20-5.40); White Blood Cell (WBC) Count 9.1 thou/uL (4.8-10.8)
[2021-04-18] MEDS: Acetaminophen 500 MG TAB PO SCH ×2 (05:56→12:11)
[2021-04-18 06:17] LABS: Anion Gap 13 mmol/L (10-20); BUN (Urea Nitrogen) 18 mg/dL (9.8-20.1); Calc. Creatinine Clearance 43 mL/min (70-130); Calcium 8.7 mg/dL (7.8-10.44); Carbon Dioxide 24 mmol/L (23-31); Cardiac Risk 2.7 (Less than 4.5); Chloride 101 mmol/L (98-107); Cholesterol 128 mg/dl (< 200 Desired); Glucose 159 mg/dL (80-115); HDL Cholesterol 48 mg/dL (>60 Neg Risk); LDL Cholesterol, Calculated 67 mg/dL; Potassium 4.4 mmol/L (3.5-5.1); Sodium 134 mmol/L (136-145); Triglycerides 66 mg/dL (Less than 150)
[2021-04-18] MEDS ORDERED: PHOS-NAK 1 PKT PACK PO SCH (08:00)
[2021-04-18] MEDS: Senokot S 8.6-50 MG TAB PO SCH ×2 (08:42→21:05)
[2021-04-18] MEDS: Polyethylene Glycol 3350 17 GM Packet PO SCH (08:42)
[2021-04-18] MEDS: Carvedilol 6.25 MG TAB PO SCH ×2 (08:43→17:43)
[2021-04-18] MEDS: traMADol HCl 50 MG TAB PO PRN ×2 (08:43→15:07)
[2021-04-18] MEDS: DULoxetine 30 MG CAP PO SCH ×2 (08:45→21:05)
[2021-04-18] MEDS: hydrALAZINE 10 MG TAB PO SCH ×3 (08:46→21:05)
[2021-04-18] MEDS ORDERED: Aspirin 81 mg Enteric Coated Tablet PO SCH (09:00)
[2021-04-18] MEDS ORDERED: Acetaminophen/Codeine 30-300mg Tablet PO PRN (16:33)
[2021-04-18] MEDS: Mometasone 200 MCG/Formoterol 5 MCG 120 PUFF INHALER INH SCH ×2 (16:47→19:00)
[2021-04-18] MEDS: Ondansetron PF 4 MG/2 ML Vial IVP PRN (17:40)
[2021-04-18] MEDS ORDERED: Calcium Carbonate 500 MG TAB PO SCH (17:45)
[2021-04-18] MEDS: Acetaminophen 325 MG TAB PO SCH (17:54)
[2021-04-18] MEDS: Acetaminophen/Codeine 30-300mg Tablet PO PRN (18:47)
[2021-04-18] MEDS: Rivaroxaban 15 MG TAB PO SCH (18:51)
[2021-04-18] MEDS: Temazepam 15 MG CAP PO SCH (21:05)
[2021-04-19] MEDS: Acetaminophen 325 MG TAB PO SCH ×4 (00:57→18:08)
[2021-04-19 05:17] LABS: #Monocytes 0.7 thou/uL (0.11-0.59); #Neutrophils 4.9 thou/uL (1.40-6.50); %Eosinophils 0.1 % (0.0-10.0); %Lymphocytes 15.6 % (21.0-51.0); %Neutrophils 74.3 % (42.0-75.0); Hemoglobin 10.3 g/dL (12.0-16.0); Mean Corpuscular HGB CONC 31.3 g/dL (32.0-36.0); Mean Corpuscular Hemoglobin 31.1 pg (27.0-31.0); Mean Corpuscular Volume 99.5 fL (78.0-98.0); Mean Platelet Volume 7.6 fL (7.4-10.4); Platelet Count 220 thou/uL (130-400); RBC Distribution Width 14.8 % (11.5-14.5); Red Blood Cell (RBC) Count 3.33 mill/uL (4.20-5.40); White Blood Cell (WBC) Count 6.5 thou/uL (4.8-10.8)
[2021-04-19 05:44] LABS: Anion Gap 8 mmol/L (10-20); BUN (Urea Nitrogen) 23 mg/dL (9.8-20.1); Calc. Creatinine Clearance 36 mL/min (70-130); Calcium 8.6 mg/dL (7.8-10.44); Carbon Dioxide 30 mmol/L (23-31); Chloride 104 mmol/L (98-107); Glucose 89 mg/dL (80-115); Phosphorus 2.9 mg/dL (2.3-4.7); Potassium 4.4 mmol/L (3.5-5.1); Sodium 138 mmol/L (136-145)
[2021-04-19] MEDS: Acetaminophen/Codeine 30-300mg Tablet PO PRN ×3 (06:39→11:48)
[2021-04-19] MEDS: Multivitamin W/ Minerals 1 TAB PO SCH (08:13)
[2021-04-19] MEDS: Ferrous Sulfate 325 MG TAB PO SCH (08:14)
[2021-04-19] MEDS: DULoxetine 30 MG CAP PO SCH ×2 (08:14→21:06)
[2021-04-19] MEDS: Cholecalciferol 1,000 UNITS (25 MCG) TAB PO SCH (08:14)
[2021-04-19] MEDS: Polyethylene Glycol 3350 17 GM Packet PO SCH (08:15)
[2021-04-19] MEDS: Senokot S 8.6-50 MG TAB PO SCH ×2 (08:15→23:12)
[2021-04-19] MEDS: Ipratropium/Albuterol Sulfate 4 GM AER IH SCH ×3 (11:31→22:53)
[2021-04-19] MEDS: Mometasone 200 MCG/Formoterol 5 MCG 120 PUFF INHALER INH SCH ×2 (11:31→22:52)
[2021-04-19] MEDS: Carvedilol 6.25 MG TAB PO SCH ×2 (11:32→18:07)
[2021-04-19] MEDS: hydrALAZINE 10 MG TAB PO SCH ×3 (11:46→21:10)
[2021-04-19] MEDS: Calcium Carbonate 500 MG TAB PO SCH ×2 (11:49→18:08)
[2021-04-19] MEDS: Rivaroxaban 15 MG TAB PO SCH (18:07)
[2021-04-19] MEDS: Acetaminophen/Codeine 30-300mg Tablet PO SCH (18:07)
[2021-04-19] MEDS: Temazepam 15 MG CAP PO SCH (21:06)
[2021-04-20] MEDS: Acetaminophen/Codeine 30-300mg Tablet PO SCH ×5 (00:19→23:11)
[2021-04-20] MEDS: Acetaminophen 325 MG TAB PO SCH ×5 (00:20→23:11)
[2021-04-20] MEDS: Ipratropium/Albuterol Sulfate 4 GM AER IH SCH ×4 (01:45→19:22)
[2021-04-20] MEDS: Ferrous Sulfate 325 MG TAB PO SCH (08:10)
[2021-04-20] MEDS: Cholecalciferol 1,000 UNITS (25 MCG) TAB PO SCH (08:10)
[2021-04-20] MEDS: hydrALAZINE 10 MG TAB PO SCH ×3 (08:10→20:37)
[2021-04-20] MEDS: Mometasone 200 MCG/Formoterol 5 MCG 120 PUFF INHALER INH SCH ×2 (08:11→18:07)
[2021-04-20] MEDS: Carvedilol 6.25 MG TAB PO SCH ×2 (08:13→18:01)
[2021-04-20] MEDS: Multivitamin W/ Minerals 1 TAB PO SCH (08:14)
[2021-04-20] MEDS: Senokot S 8.6-50 MG TAB PO SCH ×2 (08:14→20:26)
[2021-04-20] MEDS: DULoxetine 30 MG CAP PO SCH ×2 (08:14→20:26)
[2021-04-20] MEDS: Polyethylene Glycol 3350 17 GM Packet PO SCH (08:14)
[2021-04-20] MEDS: Calcium Carbonate 500 MG TAB PO SCH ×2 (12:41→18:03)
[2021-04-20] MEDS: Rivaroxaban 15 MG TAB PO SCH (18:01)
[2021-04-20] MEDS: Ibuprofen 200 MG TAB PO PRN (20:26)
[2021-04-20] MEDS: Temazepam 15 MG CAP PO SCH (20:27)
[2021-04-21] MEDS: Acetaminophen/Codeine 30-300mg Tablet PO SCH ×4 (05:00→23:40)
[2021-04-21] MEDS: Acetaminophen 325 MG TAB PO SCH ×4 (05:01→23:40)
[2021-04-21] MEDS: hydrALAZINE 20 MG/ML VIAL SLOW IVP PRN (05:42)
[2021-04-21] MEDS ORDERED: Lisinopril 5 MG TAB PO SCH (09:00)
[2021-04-21] MEDS: Ferrous Sulfate 325 MG TAB PO SCH (09:05)
[2021-04-21] MEDS: Multivitamin W/ Minerals 1 TAB PO SCH (09:05)
[2021-04-21] MEDS: Cholecalciferol 1,000 UNITS (25 MCG) TAB PO SCH ×2 (09:05→09:06)
[2021-04-21] MEDS: Carvedilol 6.25 MG TAB PO SCH ×2 (09:05→16:55)
[2021-04-21] MEDS: DULoxetine 30 MG CAP PO SCH ×2 (09:06→20:04)
[2021-04-21] MEDS: Mometasone 200 MCG/Formoterol 5 MCG 120 PUFF INHALER INH SCH ×2 (09:10→16:57)
[2021-04-21] MEDS: Lisinopril 10 MG TAB PO SCH (09:17)
[2021-04-21] MEDS: Calcium Carbonate 500 MG TAB PO SCH ×2 (09:17→16:55)
[2021-04-21] MEDS: Ibuprofen 200 MG TAB PO PRN (09:17)
[2021-04-21] MEDS: Polyethylene Glycol 3350 17 GM Packet PO SCH (09:20)
[2021-04-21] MEDS: Ipratropium/Albuterol Sulfate 4 GM AER IH SCH ×4 (09:21→16:57)
[2021-04-21] MEDS: Senokot S 8.6-50 MG TAB PO SCH ×2 (09:21→20:05)
[2021-04-21] MEDS: hydrALAZINE 10 MG TAB PO SCH ×3 (10:45→20:04)
[2021-04-21] MEDS: Rivaroxaban 15 MG TAB PO SCH (16:55)
[2021-04-21 17:12] LABS: SARS-CoV-2 NAA Rapid Test DETECTED (NotDetected)
[2021-04-21] MEDS: Temazepam 15 MG CAP PO SCH (20:04)
[2021-04-22] MEDS: Acetaminophen/Codeine 30-300mg Tablet PO SCH ×4 (06:01→23:23)
[2021-04-22] MEDS: hydrALAZINE 20 MG/ML VIAL SLOW IVP PRN (06:01)
[2021-04-22] MEDS: Acetaminophen 325 MG TAB PO SCH ×4 (06:02→23:24)
[2021-04-22] MEDS: Carvedilol 6.25 MG TAB PO SCH ×2 (07:41→16:59)
[2021-04-22] MEDS: DULoxetine 30 MG CAP PO SCH ×2 (07:42→20:08)
[2021-04-22] MEDS: Cyclobenzaprine 10 MG TAB PO PRN (07:42)
[2021-04-22] MEDS: Ibuprofen 200 MG TAB PO PRN (07:42)
[2021-04-22] MEDS: Ferrous Sulfate 325 MG TAB PO SCH (07:42)
[2021-04-22] MEDS: Lisinopril 10 MG TAB PO SCH (07:43)
[2021-04-22] MEDS: hydrALAZINE 10 MG TAB PO SCH ×3 (07:43→20:08)
[2021-04-22] MEDS: Multivitamin W/ Minerals 1 TAB PO SCH (07:43)
[2021-04-22] MEDS: Polyethylene Glycol 3350 17 GM Packet PO SCH (07:44)
[2021-04-22] MEDS: Senokot S 8.6-50 MG TAB PO SCH ×2 (07:44→20:08)
[2021-04-22] MEDS: Mometasone 200 MCG/Formoterol 5 MCG 120 PUFF INHALER INH SCH ×2 (07:46→17:03)
[2021-04-22] MEDS: Ipratropium/Albuterol Sulfate 4 GM AER IH SCH ×4 (07:46→17:03)
[2021-04-22] MEDS: Calcium Carbonate 500 MG TAB PO SCH ×2 (11:35→16:59)
[2021-04-22] MEDS: Rivaroxaban 15 MG TAB PO SCH (16:59)
[2021-04-22] MEDS: Temazepam 15 MG CAP PO SCH (20:08)
[2021-04-23] MEDS: Cyclobenzaprine 10 MG TAB PO PRN ×2 (03:08→21:04)
[2021-04-23] MEDS: Acetaminophen/Codeine 30-300mg Tablet PO SCH ×3 (06:15→17:21)
[2021-04-23] MEDS: Acetaminophen 325 MG TAB PO SCH ×3 (06:15→17:21)
[2021-04-23] MEDS: hydrALAZINE 10 MG TAB PO SCH ×3 (08:33→21:06)
[2021-04-23] MEDS: Carvedilol 6.25 MG TAB PO SCH ×2 (08:33→17:21)
[2021-04-23] MEDS: Multivitamin W/ Minerals 1 TAB PO SCH (08:33)
[2021-04-23] MEDS: DULoxetine 30 MG CAP PO SCH ×2 (08:34→21:06)
[2021-04-23] MEDS: Ferrous Sulfate 325 MG TAB PO SCH (08:34)
[2021-04-23] MEDS: Ibuprofen 200 MG TAB PO PRN (08:34)
[2021-04-23] MEDS: Cholecalciferol 1,000 UNITS (25 MCG) TAB PO SCH (08:34)
[2021-04-23] MEDS: Ipratropium/Albuterol Sulfate 4 GM AER IH SCH ×4 (08:36→17:22)
[2021-04-23] MEDS: Mometasone 200 MCG/Formoterol 5 MCG 120 PUFF INHALER INH SCH ×2 (08:36→17:23)
[2021-04-23] MEDS: Polyethylene Glycol 3350 17 GM Packet PO SCH (08:54)
[2021-04-23] MEDS: Senokot S 8.6-50 MG TAB PO SCH ×2 (08:54→23:41)
[2021-04-23] MEDS ORDERED: Lisinopril 20 MG TAB PO SCH (09:00)
[2021-04-23] MEDS: Calcium Carbonate 500 MG TAB PO SCH ×2 (11:48→17:20)
[2021-04-23] MEDS: Rivaroxaban 15 MG TAB PO SCH (17:20)
[2021-04-23] MEDS: Temazepam 15 MG CAP PO SCH (21:06)
[2021-04-23] MEDS: Lisinopril 20 MG TAB PO SCH (22:36)
[2021-04-24] MEDS: Acetaminophen/Codeine 30-300mg Tablet PO SCH ×5 (00:11→23:53)
[2021-04-24] MEDS: Acetaminophen 325 MG TAB PO SCH ×5 (00:11→23:54)
[2021-04-24] MEDS: hydrALAZINE 20 MG/ML VIAL SLOW IVP PRN (00:16)
[2021-04-24] MEDS: Ipratropium/Albuterol Sulfate 4 GM AER IH SCH ×5 (07:20→23:55)
[2021-04-24] MEDS: Carvedilol 6.25 MG TAB PO SCH ×2 (10:08→18:11)
[2021-04-24] MEDS: hydrALAZINE 10 MG TAB PO SCH ×3 (10:08→20:00)
[2021-04-24] MEDS: DULoxetine 30 MG CAP PO SCH ×2 (10:08→19:59)
[2021-04-24] MEDS: Ferrous Sulfate 325 MG TAB PO SCH (10:08)
[2021-04-24] MEDS: Senokot S 8.6-50 MG TAB PO SCH ×2 (10:08→20:00)
[2021-04-24] MEDS: Multivitamin W/ Minerals 1 TAB PO SCH (10:08)
[2021-04-24] MEDS: Ibuprofen 200 MG TAB PO PRN (10:09)
[2021-04-24] MEDS: Lisinopril 20 MG TAB PO SCH ×2 (10:09→20:00)
[2021-04-24] MEDS: Cholecalciferol 1,000 UNITS (25 MCG) TAB PO SCH (10:09)
[2021-04-24] MEDS: Polyethylene Glycol 3350 17 GM Packet PO SCH (11:12)
[2021-04-24] MEDS: Calcium Carbonate 500 MG TAB PO SCH ×2 (12:13→18:11)
[2021-04-24] MEDS: Mometasone 200 MCG/Formoterol 5 MCG 120 PUFF INHALER INH SCH ×2 (12:14→18:13)
[2021-04-24] MEDS: Rivaroxaban 15 MG TAB PO SCH (18:11)
[2021-04-24] MEDS: Temazepam 15 MG CAP PO SCH (20:00)
[2021-04-25] MEDS: Cyclobenzaprine 10 MG TAB PO PRN ×2 (02:47→09:39)
[2021-04-25] MEDS: Ibuprofen 200 MG TAB PO PRN (02:47)
[2021-04-25] MEDS: Acetaminophen 325 MG TAB PO SCH ×4 (06:14→23:37)
[2021-04-25] MEDS: Acetaminophen/Codeine 30-300mg Tablet PO SCH ×4 (06:14→23:37)
[2021-04-25] MEDS: Mometasone 200 MCG/Formoterol 5 MCG 120 PUFF INHALER INH SCH ×2 (06:15→18:29)
[2021-04-25] MEDS ORDERED: Carvedilol 25 MG TAB PO SCH (09:00)
[2021-04-25] MEDS: DULoxetine 30 MG CAP PO SCH ×2 (09:26→21:10)
[2021-04-25] MEDS: Lisinopril 20 MG TAB PO SCH ×2 (09:26→21:10)
[2021-04-25] MEDS: Ipratropium/Albuterol Sulfate 4 GM AER IH SCH ×3 (09:26→21:11)
[2021-04-25] MEDS: Multivitamin W/ Minerals 1 TAB PO SCH (09:26)
[2021-04-25] MEDS: Ferrous Sulfate 325 MG TAB PO SCH (09:26)
[2021-04-25] MEDS: Cholecalciferol 1,000 UNITS (25 MCG) TAB PO SCH (09:26)
[2021-04-25] MEDS: Calcium Carbonate 500 MG TAB PO SCH ×2 (09:27→17:38)
[2021-04-25] MEDS: Polyethylene Glycol 3350 17 GM Packet PO SCH (09:28)
[2021-04-25] MEDS: Senokot S 8.6-50 MG TAB PO SCH ×2 (09:28→21:11)
[2021-04-25] MEDS: hydrALAZINE 10 MG TAB PO SCH ×3 (09:28→21:17)
[2021-04-25] MEDS: Carvedilol 6.25 MG TAB PO SCH (09:41)
[2021-04-25] MEDS: Carvedilol 25 MG TAB PO SCH (17:38)
[2021-04-25] MEDS: Rivaroxaban 15 MG TAB PO SCH (17:38)
[2021-04-25] MEDS: Temazepam 15 MG CAP PO SCH (21:10)
[2021-04-26] MEDS: Ipratropium/Albuterol Sulfate 4 GM AER IH SCH ×3 (03:08→14:10)
[2021-04-26] MEDS: Acetaminophen 325 MG TAB PO SCH ×2 (05:23→11:14)
[2021-04-26] MEDS: Acetaminophen/Codeine 30-300mg Tablet PO SCH ×2 (05:24→11:14)
[2021-04-26] MEDS: Mometasone 200 MCG/Formoterol 5 MCG 120 PUFF INHALER INH SCH (05:48)
[2021-04-26] MEDS: Senokot S 8.6-50 MG TAB PO SCH (08:40)
[2021-04-26] MEDS: Carvedilol 25 MG TAB PO SCH (08:40)
[2021-04-26] MEDS: Multivitamin W/ Minerals 1 TAB PO SCH (08:40)
[2021-04-26] MEDS: Ferrous Sulfate 325 MG TAB PO SCH (08:40)
[2021-04-26] MEDS: Cholecalciferol 1,000 UNITS (25 MCG) TAB PO SCH (08:40)
[2021-04-26] MEDS: DULoxetine 30 MG CAP PO SCH (08:40)
[2021-04-26] MEDS: Lisinopril 20 MG TAB PO SCH (08:40)
[2021-04-26] MEDS: hydrALAZINE 10 MG TAB PO SCH ×2 (08:42→16:00)
[2021-04-26] MEDS: Polyethylene Glycol 3350 17 GM Packet PO SCH (08:48)
[2021-04-26] MEDS: Calcium Carbonate 500 MG TAB PO SCH (11:14)
[2021-04-26 16:02] VITALS: BP 125/68; TEMP 98.1
== END 2021-04-26 17:00 | DRG 480 ==
LOC: ERS 10:15 → SURG A 17:35
PROVIDERS: ADMIT Surgery; ATTEND Surgery
PROC: 8E0ZXY6 Isolation (ICD-10-PCS; 2021-04-16)
PROC: 0QS604Z Reposition Right Upper Femur with Internal Fixation Device, Open Approach (ICD-10-PCS; principal; 2021-04-17)
DX: S72.144A Nondisplaced intertrochanteric fracture of right femur, initial encounter for closed fracture (principal); U07.1 COVID-19; E46 Unspecified protein-calorie malnutrition; Z68.1 Body mass index [BMI] 19.9 or less, adult; I42.8 Other cardiomyopathies; J96.10 Chronic respiratory failure, unspecified whether with hypoxia or hypercapnia; J44.9 Chronic obstructive pulmonary disease, unspecified; F17.210 Nicotine dependence, cigarettes, uncomplicated; W18.39XA Other fall on same level, initial encounter; N83.202 Unspecified ovarian cyst, left side; I48.0 Paroxysmal atrial fibrillation; K21.9 Gastro-esophageal reflux disease without esophagitis; I25.10 Atherosclerotic heart disease of native coronary artery without angina pectoris; E78.5 Hyperlipidemia, unspecified; I11.0 Hypertensive heart disease with heart failure; I50.9 Heart failure, unspecified; Z99.81 Dependence on supplemental oxygen; Y92.012 Bathroom of single-family (private) house as the place of occurrence of the external cause; Z90.49 Acquired absence of other specified parts of digestive tract; Z79.51 Long term (current) use of inhaled steroids; Z79.01 Long term (current) use of anticoagulants; Z79.899 Other long term (current) drug therapy; I25.2 Old myocardial infarction; Z98.51 Tubal ligation status
CPT/HCPCS: 36415; 51702; 70450; 71045; 72170; 72192; 76000; 80048; 80053; 80061; 80306; 80307; 81003; 81015; 83735; 84100; 85025; 85610; 85730; 90471; 90715; 93005; 93010; 93306; 94664; 96374; 96375; 96376; C1713; J0360; J0690; J1100; J1642; J2270; J2405; J2704; J3010; J3490; J7620; U0002

== ENCOUNTER 2023-02-27 13:34 | Inpatient (IN) | payer MEDICAID, MEDICARE ==
[~2023-02-27 13:34] MED LIST changes: -Iopamidol 370 76% 100 ML VIAL ONE; +Iopamidol-370 76% 500 ML MDV (1 ML CHARGE) ONE
[2023-02-27] MEDS ORDERED: Aspirin 325 MG TAB ONE (14:35)
[2023-02-27] MEDS ORDERED: cefTRIAXone (ROCEPHIN) 1 GM VIAL ONE (14:36)
[2023-02-27] MEDS ORDERED: Azithromycin 500 MG VIAL ONE (14:36)
[2023-02-27] MEDS ORDERED: Prochlorperazine 10 MG/2 ML VIAL ONE (14:36)
[2023-02-27] MEDS ORDERED: methylPREDNISolone Sod Succ/PF 125 MG/2 ML VIAL ONE (14:37)
[2023-02-27 14:58] LABS: #Monocytes 0.3 thou/uL (0.11-0.59); #Neutrophils 9.8 thou/uL (1.40-6.50); %Basophils 0.1 % (0.0-1.0); %Lymphocytes 2.2 % (21.0-51.0); %Monocytes 2.5 % (0.0-10.0); %Neutrophils 94.9 % (42.0-75.0); Hematocrit 39.5 % (36.0-47.0); Hemoglobin 11.7 g/dL (12.0-16.0); Mean Corpuscular HGB CONC 29.6 g/dL (32.0-36.0); Mean Corpuscular Volume 81.1 fl (78.0-98.0); Mean Platelet Volume 9.9 fL (7.4-10.4); Platelet Count 333 10x3/uL (130-400); RBC Distribution Width 17.7 % (11.5-14.5); Red Blood Cell (RBC) Count 4.87 mill/uL (4.20-5.40); White Blood Cell (WBC) Count 10.3 10x3/uL (4.8-10.8)
[2023-02-27 15:13] LABS: INR-International Normal Ratio 0.9; Prothrombin Time 12.6 sec (12.0-14.7)
[2023-02-27 15:14] LABS: PTT 25.3 sec (22.9-36.1)
[2023-02-27 15:16] LABS: D-Dimer Test 0.85 *mcg/mL (0.27-0.43)
[2023-02-27 15:20] LABS: Troponin I 0.021 ng/mL (< 0.028)
[2023-02-27 15:21] LABS: ALT (SGPT) 9 U/L (8-55); AST (SGOT) 19 U/L (5-34); Albumin 3.9 g/dL (3.4-4.8); Alkaline Phosphatase 124 U/L (40-110); Anion Gap 18 mmol/L (10-20); BUN (Urea Nitrogen) 25 mg/dL (9.8-20.1); Bilirubin, Total 0.8 mg/dL (0.2-1.2); Calc. Creatinine Clearance 0 mL/min (70-130); Calcium 8.9 mg/dL (7.8-10.44); Carbon Dioxide 23 mmol/L (23-31); Chloride 101 mmol/L (98-107); Estimated GFR 60; Globulin 3.1 g/dL (2.4-3.5); Glucose 124 mg/dL (80-115); Lipase 7 U/L (8-78); Magnesium 3.3 mg/dL (1.6-2.6); Potassium 4.9 mmol/L (3.5-5.1); Sodium 137 mmol/L (136-145)
[2023-02-27 15:23] LABS: Bacteria/HPF 4+ HPF (None Seen); Bilirubin Negative (Negative); Blood, Urine 1+ (Negative); CAUTI Indications for Culture Fever or rigors; Clarity Turbid (Clear); Glucose, Urine (Dipstick) Normal (Negative); Ketone, Urine 10 mg/dL (Negative); Leukocyte 75 Leu/uL (Negative); Nitrite Negative (Negative); Protein, Urine (Dipstick) 70 mg/dL (Neg-Trace); RBC/HPF 0-3 HPF (0-3); Specific Gravity, Urine 1.016 (1.002-1.036); Squamous Epithelial 0-3 HPF (0-3); WBC/HPF 21-50 HPF (0-3); pH, Urine 5.5 (5.0-9.0)
[2023-02-27 15:24] LABS: Urine Culture Reflex Yes Yes
[2023-02-27 16:12] LABS: Actual Bicarbonate (HCO3v) 22.5 mEq/L (22-28); Base Excess -5.3 mEq/L (-2.0 to +3.0); Calcium, Ionized (venous) 1.13 mmol/L (1.16-1.32); Chloride (VBG) 101 mmol/L (98-106); Hematocrit-VBG 36 % (36.0-47.0); Hemoglobin (Hb) 12.1 g/dL (11.7-16.1); Potassium (VBG) 4.57 mmol/L (3.70-5.30); Sodium 138 mmol/L (133-146); pH (venous) 7.237 (7.32-7.43)
[2023-02-27 16:33] LABS: Actual Bicarbonate (HCO3v) 20.4 mEq/L (22-28); Analyzer IN Cardio ER; Base Excess -6.5 mEq/L (-2.0 to +3.0); Calcium, Ionized (venous) 1.11 mmol/L (1.16-1.32); Chloride (VBG) 103 mmol/L (98-106); Hematocrit-VBG 33 % (36.0-47.0); Hemoglobin (Hb) 11.2 g/dL (11.7-16.1); Potassium (VBG) 4.39 mmol/L (3.70-5.30); Sodium 137 mmol/L (133-146); pH (venous) 7.261 (7.32-7.43)
[2023-02-27 16:35] LABS: SARS-CoV-2 NAA Rapid Test Not Detected (NotDetected)
[2023-02-27] MEDS ORDERED: Ondansetron PF 4 MG/2 ML Vial IVP PRN (19:59)
[2023-02-27] MEDS ORDERED: Ipratropium/Albuterol 3 ML NEB EZPAP PRN (20:01)
[2023-02-27] MEDS ORDERED: Lisinopril 20 MG TAB PO SCH (20:15)
[2023-02-27] MEDS ORDERED: Famotidine 20 MG TAB PO SCH (21:00)
[2023-02-27 23:09] VITALS: BMI 11.8
[2023-02-27] MEDS: Ipratropium/Albuterol 3 ML NEB NEB SCH (23:20)
[2023-02-28] MEDS ORDERED: methylPREDNISolone Sod Succ 40 MG VIAL IVP SCH (02:00)
[2023-02-28] MEDS: Ipratropium/Albuterol 3 ML NEB NEB SCH ×6 (02:24→23:45)
[2023-02-28 04:02] LABS: #Monocytes 0.4 thou/uL (0.11-0.59); #Neutrophils 7.6 thou/uL (1.40-6.50); %Basophils 0.1 % (0.0-1.0); %Lymphocytes 5.3 % (21.0-51.0); %Monocytes 4.8 % (0.0-10.0); %Neutrophils 89.2 % (42.0-75.0); Hematocrit 35.7 % (36.0-47.0); Hemoglobin 10.5 g/dL (12.0-16.0); Mean Corpuscular HGB CONC 29.4 g/dL (32.0-36.0); Mean Corpuscular Hemoglobin 23.7 pg (27.0-31.0); Mean Corpuscular Volume 80.6 fl (78.0-98.0); Mean Platelet Volume 9.6 fL (7.4-10.4); Platelet Count 270 10x3/uL (130-400); RBC Distribution Width 17.9 % (11.5-14.5); Red Blood Cell (RBC) Count 4.43 mill/uL (4.20-5.40); White Blood Cell (WBC) Count 8.6 10x3/uL (4.8-10.8)
[2023-02-28 04:24] LABS: Anion Gap 16 mmol/L (10-20); BUN (Urea Nitrogen) 27 mg/dL (9.8-20.1); Calc. Creatinine Clearance 27 mL/min (70-130); Calcium 8.8 mg/dL (7.8-10.44); Carbon Dioxide 24 mmol/L (23-31); Chloride 103 mmol/L (98-107); Estimated GFR 60; Glucose 109 mg/dL (80-115); Magnesium 2.5 mg/dL (1.6-2.6); Potassium 4.7 mmol/L (3.5-5.1); Sodium 138 mmol/L (136-145)
[2023-02-28] MEDS: Acetaminophen 325 MG TAB PO PRN ×2 (09:11→20:45)
[2023-02-28] MEDS ORDERED: guaiFENesin/DM ER PO SCH ×2 (11:30→21:00)
[2023-02-28] MEDS ORDERED: cefTRIAXone\\ROCEPHIN 1 GM in Sodium Chloride 0.9% 100 ML IVPB SCH (14:00)
[2023-02-28] MEDS: Guaifenesin DM 100-10/5 ML UDCUP PO PRN ×2 (15:35→20:45)
[2023-02-28] MEDS: cefTRIAXone\\ROCEPHIN 1 GM in Sodium Chloride 0.9% 100 ML IVPB SCH (15:35)
[2023-02-28] MEDS ORDERED: Azithromycin 500 MG in Sodium Chloride 0.9% 250 ML 250 ML IVPB SCH (16:00)
[2023-03-01] MEDS: Ipratropium/Albuterol 3 ML NEB NEB SCH ×4 (02:46→14:30)
[2023-03-01 06:55] LABS: #Monocytes 0.7 thou/uL (0.11-0.59); #Neutrophils 7.4 thou/uL (1.40-6.50); %Basophils 0.1 % (0.0-1.0); %Lymphocytes 9.6 % (21.0-51.0); %Monocytes 7.3 % (0.0-10.0); %Neutrophils 82.7 % (42.0-75.0); Hematocrit 31.9 % (36.0-47.0); Hemoglobin 9.3 g/dL (12.0-16.0); Mean Corpuscular HGB CONC 29.2 g/dL (32.0-36.0); Mean Corpuscular Hemoglobin 23.7 pg (27.0-31.0); Mean Corpuscular Volume 81.4 fl (78.0-98.0); Mean Platelet Volume 9.9 fL (7.4-10.4); Platelet Count 282 10x3/uL (130-400); RBC Distribution Width 17.9 % (11.5-14.5); Red Blood Cell (RBC) Count 3.92 mill/uL (4.20-5.40)
[2023-03-01 07:25] LABS: Anion Gap 13 mmol/L (10-20); BUN (Urea Nitrogen) 35 mg/dL (9.8-20.1); Calc. Creatinine Clearance 23 mL/min (70-130); Carbon Dioxide 24 mmol/L (23-31); Chloride 101 mmol/L (98-107); Estimated GFR 51; Glucose 102 mg/dL (80-115); Sodium 134 mmol/L (136-145)
[2023-03-01] MEDS: Benzonatate 100 MG CAP PO SCH ×3 (09:48→20:21)
[2023-03-01] MEDS: cefTRIAXone\\ROCEPHIN 1 GM in Sodium Chloride 0.9% 100 ML IVPB SCH (14:43)
[2023-03-01] MEDS: Acetaminophen 325 MG TAB PO PRN ×2 (15:47→20:19)
[2023-03-01] MEDS ORDERED: predniSONE 20 MG TAB PO SCH (16:15)
[2023-03-01] MEDS: Cefuroxime 250 MG TAB PO SCH (20:19)
[2023-03-01] MEDS: hydrALAZINE 20 MG/ML VIAL SLOW IVP PRN (20:50)
[2023-03-01] MEDS ORDERED: Famotidine 20 MG TAB PO SCH (21:00)
[2023-03-01] MEDS: Guaifenesin DM 100-10/5 ML UDCUP PO PRN (21:06)
[2023-03-02] MEDS: Ipratropium/Albuterol 3 ML NEB NEB SCH ×8 (00:23→22:53)
[2023-03-02] MEDS: hydrALAZINE 20 MG/ML VIAL SLOW IVP PRN (06:04)
[2023-03-02 08:47] LABS: #Monocytes 0.3 thou/uL (0.11-0.59); #Neutrophils 4.8 thou/uL (1.40-6.50); %Basophils 0.2 % (0.0-1.0); %Lymphocytes 13.6 % (21.0-51.0); %Monocytes 4.4 % (0.0-10.0); %Neutrophils 81.3 % (42.0-75.0); Hematocrit 33.4 % (36.0-47.0); Hemoglobin 10.4 g/dL (12.0-16.0); Mean Corpuscular HGB CONC 31.1 g/dL (32.0-36.0); Mean Corpuscular Hemoglobin 24.2 pg (27.0-31.0); Mean Corpuscular Volume 77.9 fl (78.0-98.0); Mean Platelet Volume 9.7 fL (7.4-10.4); Platelet Count 321 10x3/uL (130-400); RBC Distribution Width 17.7 % (11.5-14.5); Red Blood Cell (RBC) Count 4.29 mill/uL (4.20-5.40); White Blood Cell (WBC) Count 5.9 10x3/uL (4.8-10.8)
[2023-03-02] MEDS: Cefuroxime 250 MG TAB PO SCH ×2 (08:57→20:37)
[2023-03-02] MEDS ORDERED: Non-Formulary Item 1 EACH (Nifedipine [Nifedipine Er] 30 MG Tablet.Er) PO SCH (09:00)
[2023-03-02] MEDS ORDERED: Non-Formulary Item 1 EACH (Carvedilol [Coreg] 12.5 MG Tab) PO SCH (09:00)
[2023-03-02] MEDS: Benzonatate 100 MG CAP PO SCH ×3 (09:02→20:33)
[2023-03-02] MEDS: predniSONE 20 MG TAB PO SCH (09:02)
[2023-03-02] MEDS: Guaifenesin DM 100-10/5 ML UDCUP PO PRN (09:02)
[2023-03-02 09:10] LABS: Anion Gap 11 mmol/L (10-20); BUN (Urea Nitrogen) 21 mg/dL (9.8-20.1); Calc. Creatinine Clearance 34 mL/min (70-130); Calcium 7.8 mg/dL (7.8-10.44); Carbon Dioxide 27 mmol/L (23-31); Chloride 102 mmol/L (98-107); Estimated GFR 79; Glucose 94 mg/dL (80-115); Potassium 4.8 mmol/L (3.5-5.1); Sodium 135 mmol/L (136-145)
[2023-03-02] MEDS: NIFEdipine XL 30 MG ER.TAB PO SCH (10:07)
[2023-03-02] MEDS: Carvedilol 6.25 MG TAB PO SCH ×2 (10:08→20:39)
[2023-03-02] MEDS: DULoxetine 30 MG CAP PO SCH (10:09)
[2023-03-02] MEDS ORDERED: Albuterol 200 PUFF (6.7GM INHALER) INH SCH (12:00)
[2023-03-02] MEDS: Acetaminophen 325 MG TAB PO PRN (20:37)
[2023-03-02] MEDS ORDERED: FLU VACC QS2023(65UP)/MF59C/PF 60 MCG/0.5 ML SYRINGE IM ONE (23:30)
[2023-03-03] MEDS: Ipratropium/Albuterol 3 ML NEB NEB SCH ×4 (02:20→13:36)
[2023-03-03] MEDS: NIFEdipine XL 30 MG ER.TAB PO SCH (08:29)
[2023-03-03] MEDS: DULoxetine 30 MG CAP PO SCH (08:29)
[2023-03-03] MEDS: Cefuroxime 250 MG TAB PO SCH (08:29)
[2023-03-03] MEDS: Carvedilol 6.25 MG TAB PO SCH (08:30)
[2023-03-03] MEDS: Benzonatate 100 MG CAP PO SCH (08:33)
[2023-03-03] MEDS: predniSONE 20 MG TAB PO SCH (08:35)
[2023-03-03 14:14] VITALS: BP 127/72; TEMP 97.6
== END 2023-03-03 14:00 | disposition home or self-care (01) | DRG 193 ==
LOC: ERS 13:34 → ERHOLD 18:51 → CCU 21:54 → T4-A 02-28 10:50
PROVIDERS: ADMIT Internal Medicine; ATTEND Hospitalist
PROC: 4A133R1 Monitoring of Arterial Saturation, Peripheral, Percutaneous Approach (ICD-10-PCS; principal; 2023-02-27)
PROC: 5A09357 Assistance with Respiratory Ventilation, Less than 24 Consecutive Hours, Continuous Positive Airway Pressure (ICD-10-PCS; 2023-02-27)
PROC: 0T9B70Z Drainage of Bladder with Drainage Device, Via Natural or Artificial Opening (ICD-10-PCS; 2023-02-27)
DX: J12.1 Respiratory syncytial virus pneumonia (principal); E43 Unspecified severe protein-calorie malnutrition; J96.21 Acute and chronic respiratory failure with hypoxia; J21.0 Acute bronchiolitis due to respiratory syncytial virus; J44.1 Chronic obstructive pulmonary disease with (acute) exacerbation; N30.00 Acute cystitis without hematuria; R64 Cachexia; Z68.1 Body mass index [BMI] 19.9 or less, adult; J44.0 Chronic obstructive pulmonary disease with (acute) lower respiratory infection; I10 Essential (primary) hypertension; I25.10 Atherosclerotic heart disease of native coronary artery without angina pectoris; I48.0 Paroxysmal atrial fibrillation; F41.9 Anxiety disorder, unspecified; F32.A Depression, unspecified; F17.210 Nicotine dependence, cigarettes, uncomplicated; B96.20 Unspecified Escherichia coli [E. coli] as the cause of diseases classified elsewhere; F17.200 Nicotine dependence, unspecified, uncomplicated; R53.81 Other malaise; Z88.2 Allergy status to sulfonamides; Z79.899 Other long term (current) drug therapy; Z79.2 Long term (current) use of antibiotics; Z90.49 Acquired absence of other specified parts of digestive tract; Z98.890 Other specified postprocedural states; Z90.710 Acquired absence of both cervix and uterus; Z82.49 Family history of ischemic heart disease and other diseases of the circulatory system; Z71.6 Tobacco abuse counseling; Z11.52 Encounter for screening for COVID-19; Z99.81 Dependence on supplemental oxygen
CPT/HCPCS: 0241U; 36415; 51701; 71045; 71275; 80048; 80053; 81001; 82805; 83605; 83690; 83735; 83880; 84484; 85025; 85379; 85610; 85730; 87040; 87077; 87086; 87186; 90471; 90694; 93005; 94640; 94660; 94760; 96365; 96375; G0008; J0360; J0456; J0696; J0780; J2920; J2930; J3490; J7050; J7512; J7620; Q9967

== ENCOUNTER 2023-04-15 00:05 | Inpatient (IN) | payer MEDICARE ==
[2023-04-15] MEDS ORDERED: fentaNYL 50 mcg/mL 1 mL Vial ONE (00:10)
[2023-04-15 00:15] LABS: Actual Bicarbonate (HCO3a) 22.8 mEq/L (22-28); Analyzer IN Cardio ER; Base Excess (BEa) -2.6 mEq/L (-2.0 to +3.0); CO2 Tension 41.5 mmHg (35.0-45.0); Calcium, Ionized (arterial) 1.14 mmol/L (1.12-1.30); Carboxyhemoglobin (COHb) 2.3 gm% (0.0-3.0); Hematocrit-ABG 34 % (36.0-47.0); Hemoglobin (Hb) 11.7 g/dL (12.0-16.0); Potassium - ABG Lab 4.29 mmol/L (3.70-5.30); pH, Arterial 7.357 (7.35-7.45)
[2023-04-15] MEDS ORDERED: Fentanyl CADD 100 ML IV SCH ×2 (00:15→04:00)
[2023-04-15] MEDS ORDERED: Nitroglycerin 2% Ointment 1 INCH/1 GM Packet ONE (00:22)
[2023-04-15 00:23] LABS: #Eosinphils 0.1 thou/uL (0.0-0.7); #Monocytes 0.3 thou/uL (0.11-0.59); #Neutrophils 8.9 thou/uL (1.40-6.50); %Basophils 0.2 % (0.0-1.0); %Eosinophils 0.7 % (0.0-10.0); %Lymphocytes 11.2 % (21.0-51.0); %Monocytes 3.2 % (0.0-10.0); Hematocrit 37.4 % (36.0-47.0); Hemoglobin 11.2 g/dL (12.0-16.0); Mean Corpuscular HGB CONC 29.9 g/dL (32.0-36.0); Mean Corpuscular Volume 80.1 fl (78.0-98.0); Mean Platelet Volume 10.3 fL (7.4-10.4); Platelet Count 181 10x3/uL (130-400); RBC Distribution Width 20.2 % (11.5-14.5); Red Blood Cell (RBC) Count 4.67 mill/uL (4.20-5.40); White Blood Cell (WBC) Count 10.6 10x3/uL (4.8-10.8)
[2023-04-15] MEDS ORDERED: Labetalol HCl 100 MG/20 ML VIAL ONE (00:33)
[2023-04-15] MEDS ORDERED: Propofol 1,000 MG/100 ML VIAL IV ONE (00:39)
[2023-04-15 00:47] LABS: ALT (SGPT) 8 U/L (8-55); AST (SGOT) 17 U/L (5-34); Albumin 3.8 g/dL (3.4-4.8); Alkaline Phosphatase 109 U/L (40-110); Anion Gap 10 mmol/L (10-20); BUN (Urea Nitrogen) 20 mg/dL (9.8-20.1); Bilirubin, Total 0.3 mg/dL (0.2-1.2); Calc. Creatinine Clearance 0 mL/min (70-130); Calcium 8.6 mg/dL (7.8-10.44); Carbon Dioxide 24 mmol/L (23-31); Chloride 105 mmol/L (98-107); Estimated GFR 57; Glucose 151 mg/dL (80-115); Magnesium 3.3 mg/dL (1.6-2.6); Potassium 4.3 mmol/L (3.5-5.1); Protein, Total 6.8 g/dL (5.8-8.1); Sodium 135 mmol/L (136-145)
[2023-04-15 00:51] LABS: Troponin I Less than 0.010 ng/mL (< 0.028)
[2023-04-15] MEDS ORDERED: Sodium Chloride 0.9% 100 ML ONE (01:31)
[2023-04-15] MEDS ORDERED: cefTRIAXone (ROCEPHIN) 2 GM VIAL ONE (01:31)
[2023-04-15 01:45] LABS: Puncture Site RR
[2023-04-15] MEDS ORDERED: Ondansetron PF 4 MG/2 ML Vial IVP PRN (01:49)
[2023-04-15 01:51] LABS: ALV-art Gradient 171.625 mmHg (0-20)
[2023-04-15] MEDS ORDERED: Ventilator Sedation Protocol 1 EACH FS SCH (03:45)
[2023-04-15] MEDS ORDERED: Fentanyl BOLUS 250 ML IVPB PRN (04:00)
[2023-04-15] MEDS ORDERED: Morphine 2 MG/ML VIAL SLOW IVP PRN (04:00)
[2023-04-15] MEDS ORDERED: Propofol BOLUS 1,000 MG/100 ML VIAL IV PRN (04:00)
[2023-04-15] MEDS ORDERED: DISCONTINUE PREVIOUS NARCOTIC PAIN MEDICATIONS AND BENZODIAZEPINES FS SCH (04:00)
[2023-04-15] MEDS: Ipratropium/Albuterol 3 ML NEB NEB SCH (04:03)
[2023-04-15] MEDS: methylPREDNISolone Sod Succ 40 MG VIAL IVP SCH (05:15)
[2023-04-15] MEDS: Azithromycin 500 MG in Sodium Chloride 0.9% 250 ML 250 ML IVPB SCH (05:16)
[2023-04-15 06:58] LABS: Anion Gap 15 mmol/L (10-20); BUN (Urea Nitrogen) 23 mg/dL (9.8-20.1); Calc. Creatinine Clearance 27 mL/min (70-130); Calcium 8.5 mg/dL (7.8-10.44); Carbon Dioxide 18 mmol/L (23-31); Chloride 109 mmol/L (98-107); Estimated GFR 51; Glucose 142 mg/dL (80-115); Potassium 5.1 mmol/L (3.5-5.1); Sodium 137 mmol/L (136-145)
[2023-04-15] MEDS: Mometasone 200 MCG/Formoterol 5 MCG 120 PUFF INHALER INH SCH (07:06)
[2023-04-15 07:17] LABS: Actual Bicarbonate (HCO3a) 22.7 mEq/L (22-28); Base Excess (BEa) -2.7 mEq/L (-2.0 to +3.0); CO2 Tension 41.8 mmHg (35.0-45.0); Calcium, Ionized (arterial) 1.13 mmol/L (1.12-1.30); Carboxyhemoglobin (COHb) 0.5 gm% (0.0-3.0); Hematocrit-ABG 31 % (36.0-47.0); Hemoglobin (Hb) 10.5 g/dL (12.0-16.0); Potassium - ABG Lab 5.13 mmol/L (3.70-5.30); pH, Arterial 7.353 (7.35-7.45)
[2023-04-15 07:18] LABS: Puncture Site LRA
[2023-04-15] MEDS: Carvedilol 25 MG TAB PO SCH (09:00)
[2023-04-15 09:01] LABS: #Monocytes 0.1 thou/uL (0.11-0.59); #Neutrophils 4.4 thou/uL (1.40-6.50); %Basophils 0.2 % (0.0-1.0); %Monocytes 1.7 % (0.0-10.0); %Neutrophils 83.7 % (42.0-75.0); Hematocrit 33.6 % (36.0-47.0); Hemoglobin 9.9 g/dL (12.0-16.0); Mean Corpuscular HGB CONC 29.5 g/dL (32.0-36.0); Mean Corpuscular Hemoglobin 23.3 pg (27.0-31.0); Mean Corpuscular Volume 79.2 fl (78.0-98.0); Mean Platelet Volume 9.3 fL (7.4-10.4); RBC Distribution Width 20.2 % (11.5-14.5); Red Blood Cell (RBC) Count 4.24 mill/uL (4.20-5.40); White Blood Cell (WBC) Count 5.2 10x3/uL (4.8-10.8)
[2023-04-15 09:13] LABS: Platelet Count 284 10x3/uL (130-400)
[2023-04-15] MEDS: Pantoprazole 40 MG VIAL IVP SCH (09:44)
[2023-04-15] MEDS: Lactated Ringer's 1,000 ML IV SCH (11:44)
[2023-04-15] MEDS: diphenhydrAMINE 50 MG/ML VIAL IVP SCH (11:45)
[2023-04-15] MEDS: Enoxaparin 30 MG (0.3 mL) SYRINGE SC SCH (12:10)
[2023-04-15] MEDS ORDERED: Dexmedetomidine In 0.9 % NaCl 100 ML IVPB SCH (19:30)
[2023-04-15] MEDS: Lorazepam 2 MG/ML VIAL SLOW IVP PRN (19:31)
[2023-04-16] MEDS: Propofol 1,000 MG/100 ML VIAL IV PRN (00:03)
[2023-04-16] MEDS: cefTRIAXone\\ROCEPHIN 1 GM in Sodium Chloride 0.9% 100 ML IVPB SCH (00:15)
[2023-04-16] MEDS: Lactated Ringer's 500 ML IV SCH (01:04)
[2023-04-16] MEDS: Lactated Ringer's 1,000 ML IV SCH (01:04)
[2023-04-16 04:21] LABS: #Monocytes 0.3 thou/uL (0.11-0.59); #Neutrophils 6.7 thou/uL (1.40-6.50); %Lymphocytes 10.8 % (21.0-51.0); %Monocytes 3.2 % (0.0-10.0); %Neutrophils 85.5 % (42.0-75.0); Hematocrit 31.3 % (36.0-47.0); Hemoglobin 9.3 g/dL (12.0-16.0); Mean Corpuscular HGB CONC 29.7 g/dL (32.0-36.0); Mean Corpuscular Hemoglobin 23.5 pg (27.0-31.0); Mean Corpuscular Volume 79.2 fl (78.0-98.0); Platelet Count 273 10x3/uL (130-400); RBC Distribution Width 19.9 % (11.5-14.5); Red Blood Cell (RBC) Count 3.95 mill/uL (4.20-5.40); White Blood Cell (WBC) Count 7.8 10x3/uL (4.8-10.8)
[2023-04-16 04:45] LABS: Anion Gap 14 mmol/L (10-20); BUN (Urea Nitrogen) 32 mg/dL (9.8-20.1); Calc. Creatinine Clearance 30 mL/min (70-130); Calcium 8.4 mg/dL (7.8-10.44); Carbon Dioxide 17 mmol/L (23-31); Chloride 108 mmol/L (98-107); Estimated GFR 58; Glucose 135 mg/dL (80-115); Magnesium 2.5 mg/dL (1.6-2.6); Sodium 134 mmol/L (136-145)
[2023-04-16] MEDS: Amlodipine 5 MG TAB PO SCH (08:48)
[2023-04-17 05:25] LABS: #Monocytes 0.2 thou/uL (0.11-0.59); #Neutrophils 4.6 thou/uL (1.40-6.50); %Monocytes 3.9 % (0.0-10.0); %Neutrophils 85.5 % (42.0-75.0); Hematocrit 34.5 % (36.0-47.0); Hemoglobin 10.3 g/dL (12.0-16.0); Mean Corpuscular HGB CONC 29.9 g/dL (32.0-36.0); Mean Corpuscular Hemoglobin 23.6 pg (27.0-31.0); Mean Corpuscular Volume 79.1 fl (78.0-98.0); Mean Platelet Volume 9.4 fL (7.4-10.4); Platelet Count 322 10x3/uL (130-400); Red Blood Cell (RBC) Count 4.36 mill/uL (4.20-5.40); White Blood Cell (WBC) Count 5.4 10x3/uL (4.8-10.8)
[2023-04-17 05:50] LABS: Anion Gap 14 mmol/L (10-20); BUN (Urea Nitrogen) 30 mg/dL (9.8-20.1); Calc. Creatinine Clearance 39 mL/min (70-130); Calcium 8.2 mg/dL (7.8-10.44); Carbon Dioxide 17 mmol/L (23-31); Chloride 108 mmol/L (98-107); Estimated GFR 77; Glucose 141 mg/dL (80-115); Magnesium 2.4 mg/dL (1.6-2.6); Sodium 134 mmol/L (136-145)
[2023-04-17] MEDS: Pantoprazole 40 MG VIAL IVP SCH (08:01)
[2023-04-17] MEDS ORDERED: niCARdipine 40MG In NaCl 40 MG/200 ML BAG IVPB SCH (09:15)
[2023-04-17] MEDS: niCARdipine 50 MG, Admixture Fee 1 EACH in Sodium Chloride 0.9% 250 ML 230 ML IV SCH (09:47)
[2023-04-18 04:46] LABS: #Monocytes 0.2 thou/uL (0.11-0.59); #Neutrophils 5.1 thou/uL (1.40-6.50); %Lymphocytes 5.3 % (21.0-51.0); %Monocytes 4.2 % (0.0-10.0); Hematocrit 31.8 % (36.0-47.0); Hemoglobin 9.6 g/dL (12.0-16.0); Mean Corpuscular HGB CONC 30.2 g/dL (32.0-36.0); Mean Corpuscular Hemoglobin 23.5 pg (27.0-31.0); Mean Corpuscular Volume 77.8 fl (78.0-98.0); Mean Platelet Volume 9.2 fL (7.4-10.4); Platelet Count 335 10x3/uL (130-400); RBC Distribution Width 19.8 % (11.5-14.5); Red Blood Cell (RBC) Count 4.09 mill/uL (4.20-5.40); White Blood Cell (WBC) Count 5.7 10x3/uL (4.8-10.8)
[2023-04-18 05:38] LABS: Anion Gap 12 mmol/L (10-20); BUN (Urea Nitrogen) 26 mg/dL (9.8-20.1); Calc. Creatinine Clearance 47 mL/min (70-130); Calcium 8.1 mg/dL (7.8-10.44); Carbon Dioxide 22 mmol/L (23-31); Chloride 106 mmol/L (98-107); Estimated GFR 83; Glucose 127 mg/dL (80-115); Potassium 4.2 mmol/L (3.5-5.1); Sodium 136 mmol/L (136-145)
[2023-04-18] MEDS: Furosemide 40 MG (4 mL) VIAL ONE (10:20)
[2023-04-18] MEDS: Lactated Ringer's 1,000 ML IV SCH (10:54)
[2023-04-18] MEDS: DC Sedation Protocol FS ONE (10:55)
[2023-04-18] MEDS: Acetaminophen 325 MG TAB PER TUBE PRN (20:54)
[2023-04-18] MEDS: Gabapentin 300 MG CAP PO SCH (21:55)
[2023-04-19] MEDS ORDERED: Glucagon 1 MG/ML KIT IM PRN (10:54)
[2023-04-19] MEDS ORDERED: Dextrose 50% Abboject 50 ML SYRINGE SLOW IVP PRN (10:54)
[2023-04-19] MEDS ORDERED: Dextrose 5% in Water 1,000 ML IV PRN (10:54)
[2023-04-19] MEDS ORDERED: Insulin Regular 300 UNITS/3 ML VIAL SC PRN (10:54)
[2023-04-19] MEDS: Insulin Regular 300 UNITS/3 ML VIAL SC PRN (11:08)
[2023-04-19] MEDS: Carvedilol 6.25 MG TAB PO SCH (16:41)
[2023-04-19] MEDS: Melatonin 3 MG TAB PO PRN (20:55)
[2023-04-19] MEDS: Fioricet 325/50/40 mg Tablet PO PRN (20:55)
[2023-04-20] MEDS: Cefdinir 300 MG CAP PO SCH (08:31)
[2023-04-20] MEDS: predniSONE 20 MG TAB PO SCH (08:34)
[2023-04-20 09:51] VITALS: BMI 17.3
[2023-04-20] MEDS: ALPRAZolam 0.25 MG TAB PO PRN (11:45)
[2023-04-20] MEDS: BuPROPion XL 150 MG ER.TAB PO SCH (16:22)
[2023-04-20 17:30] LABS: Magnesium 1.9 mg/dL (1.6-2.6)
[2023-04-21 07:06] LABS: #Monocytes 0.7 thou/uL (0.11-0.59); #Neutrophils 5.7 thou/uL (1.40-6.50); %Basophils 0.1 % (0.0-1.0); %Eosinophils 0.1 % (0.0-10.0); %Lymphocytes 19.1 % (21.0-51.0); %Monocytes 8.6 % (0.0-10.0); %Neutrophils 71.5 % (42.0-75.0); Hematocrit 34.7 % (36.0-47.0); Mean Corpuscular HGB CONC 28.8 g/dL (32.0-36.0); Mean Corpuscular Hemoglobin 22.9 pg (27.0-31.0); Mean Corpuscular Volume 79.6 fl (78.0-98.0); Mean Platelet Volume 9.1 fL (7.4-10.4); Platelet Count 339 10x3/uL (130-400); RBC Distribution Width 19.6 % (11.5-14.5); Red Blood Cell (RBC) Count 4.36 mill/uL (4.20-5.40)
[2023-04-21 07:31] LABS: Anion Gap 11 mmol/L (10-20); BUN (Urea Nitrogen) 20 mg/dL (9.8-20.1); Calc. Creatinine Clearance 47 mL/min (70-130); Calcium 7.6 mg/dL (7.8-10.44); Carbon Dioxide 29 mmol/L (23-31); Chloride 104 mmol/L (98-107); Estimated GFR 76; Glucose 121 mg/dL (80-115); Potassium 3.5 mmol/L (3.5-5.1); Sodium 140 mmol/L (136-145)
[2023-04-21 07:45] LABS: Anisocytosis SLIGHT = 6-15 cells HPF (0-5); CellaVision Operator ID lab.dlt; Hypochromia SLIGHT = 6-15 cells HPF (0-5); Ovalocytes SLIGHT = 2-5 cells HPF (0-1); Platelet Adequacy Comment Platelets Normal; Poikilocytosis SLIGHT = 6-15 cells HPF (0-5); Polychromasia SLIGHT = 2-3 cells HPF (0-2)
[2023-04-21] MEDS: Enoxaparin 40 MG (0.4 mL) SYRINGE SC SCH (08:05)
[2023-04-21] MEDS: BuPROPion XL 150 MG ER.TAB PO SCH (08:06)
[2023-04-21] MEDS: predniSONE 20 MG TAB PO SCH (08:06)
[2023-04-21] MEDS: guaiFENesin/Codeine 200 mg/20 mg 10 ml Cup PO PRN (11:32)
[2023-04-21] MEDS: QUEtiapine 25 MG TAB PO SCH (20:13)
[2023-04-22 04:57] LABS: #Monocytes 0.7 thou/uL (0.11-0.59); #Neutrophils 6.4 thou/uL (1.40-6.50); %Eosinophils 0.1 % (0.0-10.0); %Lymphocytes 17.7 % (21.0-51.0); %Monocytes 8.2 % (0.0-10.0); %Neutrophils 73.4 % (42.0-75.0); Hematocrit 29.5 % (36.0-47.0); Hemoglobin 8.9 g/dL (12.0-16.0); Mean Corpuscular HGB CONC 30.2 g/dL (32.0-36.0); Mean Corpuscular Hemoglobin 23.4 pg (27.0-31.0); Mean Corpuscular Volume 77.4 fl (78.0-98.0); Mean Platelet Volume 9.3 fL (7.4-10.4); Platelet Count 317 10x3/uL (130-400); RBC Distribution Width 19.4 % (11.5-14.5); Red Blood Cell (RBC) Count 3.81 mill/uL (4.20-5.40); White Blood Cell (WBC) Count 8.7 10x3/uL (4.8-10.8)
[2023-04-22 05:25] LABS: Anion Gap 8 mmol/L (10-20); BUN (Urea Nitrogen) 20 mg/dL (9.8-20.1); Calc. Creatinine Clearance 49 mL/min (70-130); Calcium 7.7 mg/dL (7.8-10.44); Carbon Dioxide 32 mmol/L (23-31); Chloride 101 mmol/L (98-107); Estimated GFR 80; Glucose 80 mg/dL (80-115); Potassium 3.6 mmol/L (3.5-5.1); Sodium 137 mmol/L (136-145)
[2023-04-22] MEDS ORDERED: hydrALAZINE 20 MG/ML VIAL SLOW IVP PRN (08:36)
[2023-04-22] MEDS: Amlodipine 5 MG TAB PO SCH (09:53)
[2023-04-22] MEDS: Losartan 25 MG TAB PO SCH (09:53)
[2023-04-23 04:31] VITALS: TEMP 97.9
[2023-04-23 05:59] LABS: #Monocytes 0.7 thou/uL (0.11-0.59); #Neutrophils 7.8 thou/uL (1.40-6.50); %Basophils 0.1 % (0.0-1.0); %Eosinophils 0.2 % (0.0-10.0); %Lymphocytes 17.2 % (21.0-51.0); %Monocytes 7.1 % (0.0-10.0); %Neutrophils 74.8 % (42.0-75.0); Hematocrit 31.3 % (36.0-47.0); Hemoglobin 9.1 g/dL (12.0-16.0); Mean Corpuscular HGB CONC 29.1 g/dL (32.0-36.0); Mean Corpuscular Hemoglobin 22.6 pg (27.0-31.0); Mean Corpuscular Volume 77.9 fl (78.0-98.0); Mean Platelet Volume 8.9 fL (7.4-10.4); Platelet Count 357 10x3/uL (130-400); RBC Distribution Width 19.8 % (11.5-14.5); Red Blood Cell (RBC) Count 4.02 mill/uL (4.20-5.40); White Blood Cell (WBC) Count 10.4 10x3/uL (4.8-10.8)
[2023-04-23 06:25] LABS: Anion Gap 9 mmol/L (10-20); BUN (Urea Nitrogen) 21 mg/dL (9.8-20.1); Calc. Creatinine Clearance 51 mL/min (70-130); Calcium 8.2 mg/dL (7.8-10.44); Carbon Dioxide 31 mmol/L (23-31); Chloride 102 mmol/L (98-107); Estimated GFR 83; Glucose 80 mg/dL (80-115); Potassium 3.7 mmol/L (3.5-5.1); Sodium 138 mmol/L (136-145)
[2023-04-23 08:09] VITALS: BP 172/89
[2023-04-23] MEDS: Amlodipine 10 MG TAB PO SCH (08:31)
[2023-04-23] MEDS: Carvedilol 6.25 MG TAB PO SCH (08:31)
[2023-04-23] MEDS: Enoxaparin 30 MG (0.3 mL) SYRINGE SC SCH (12:27)
[2023-04-23] MEDS ORDERED: Carvedilol 25 MG TAB PO SCH (17:00)
== END 2023-04-23 14:13 | disposition home or self-care (01) | DRG 207 ==
LOC: ERS 00:05 → CCU 00:53 → MSONC 04-19 14:57
PROVIDERS: ADMIT Internal Medicine; ATTEND Internal Medicine
PROC: 4A133R1 Monitoring of Arterial Saturation, Peripheral, Percutaneous Approach (ICD-10-PCS; principal; 2023-04-15)
PROC: 5A1955Z Respiratory Ventilation, Greater than 96 Consecutive Hours (ICD-10-PCS; 2023-04-15)
PROC: 0BH17EZ Insertion of Endotracheal Airway into Trachea, Via Natural or Artificial Opening (ICD-10-PCS; 2023-04-15)
DX: J96.21 Acute and chronic respiratory failure with hypoxia (principal); G93.41 Metabolic encephalopathy; J44.1 Chronic obstructive pulmonary disease with (acute) exacerbation; R64 Cachexia; Z68.1 Body mass index [BMI] 19.9 or less, adult; E44.0 Moderate protein-calorie malnutrition; I10 Essential (primary) hypertension; I25.10 Atherosclerotic heart disease of native coronary artery without angina pectoris; I48.0 Paroxysmal atrial fibrillation; I73.9 Peripheral vascular disease, unspecified; F41.9 Anxiety disorder, unspecified; E83.41 Hypermagnesemia; G47.00 Insomnia, unspecified; J96.02 Acute respiratory failure with hypercapnia; R53.81 Other malaise; F32.A Depression, unspecified; Z79.899 Other long term (current) drug therapy; Z99.81 Dependence on supplemental oxygen; Z87.891 Personal history of nicotine dependence; Z91.048 Other nonmedicinal substance allergy status; Z88.2 Allergy status to sulfonamides; Z90.49 Acquired absence of other specified parts of digestive tract; Z90.710 Acquired absence of both cervix and uterus; Z98.890 Other specified postprocedural states
CPT/HCPCS: 36415; 36416; 36600; 51702; 71045; 80048; 80053; 82805; 83605; 83735; 83880; 84484; 85025; 85520; 93005; 94002; 94003; 94640; 96365; 96366; 96368; 96375; 99292; C9113; J0456; J0696; J1200; J1650; J1815; J2060; J2704; J2920; J3010; J3490; J7050; J7120; J7512; J7620

== ENCOUNTER 2023-07-20 11:22 | Emergency (ER) | payer MEDICARE, MEDICAID ==
[2023-07-20] MEDS ORDERED: Magnesium 2 GM/50 ML BAG (IN WATER) ONE (11:30)
[2023-07-20] MEDS ORDERED: Ipratropium/Albuterol 3 ML NEB ONE ×2 (11:33→11:46)
[2023-07-20 12:11] LABS: #Basophils Less than 0.03 10x3/uL (0.0-0.2); #Eosinphils Less than 0.03 10x3/uL (0.0-0.7); %Basophils 0.1 % (0.0-1.0); %Lymphocytes 6.6 % (21.0-51.0); %Monocytes 7.2 % (0.0-10.0); %Neutrophils 85.4 % (42.0-75.0); Hematocrit 38.4 % (36.0-47.0); Hemoglobin 11.3 g/dL (12.0-16.0); Mean Corpuscular HGB CONC 29.4 g/dL (32.0-36.0); Mean Corpuscular Hemoglobin 24.4 pg (27.0-31.0); Mean Corpuscular Volume 82.8 fL (78.0-98.0); Mean Platelet Volume 9.3 fL (7.4-10.4); Platelet Count 327 10x3/uL (130-400); RBC Distribution Width 18.9 % (11.5-14.5); Red Blood Cell (RBC) Count 4.64 mill/uL (4.20-5.40)
[2023-07-20 12:12] LABS: Actual Bicarbonate (HCO3v) 34.8 mEq/L (22-28); Base Excess 7.2 mEq/L (-2.0 to +3.0); Hemoglobin (Hb) 11.6 g/dL (11.7-16.1); Potassium (VBG) 4.22 mmol/L (3.70-5.30); pH (venous) 7.341 (7.32-7.43)
[2023-07-20 12:13] LABS: Calcium, Ionized (venous) 1.17 mmol/L (1.16-1.32)
[2023-07-20 12:40] LABS: ALT (SGPT) 8 U/L (8-55); AST (SGOT) 15 U/L (5-34); Albumin 3.8 g/dL (3.4-4.8); Alkaline Phosphatase 94 U/L (40-110); Anion Gap 11 mmol/L (10-20); BUN (Urea Nitrogen) 17 mg/dL (9.8-20.1); Bilirubin, Total 0.9 mg/dL (0.2-1.2); Calc. Creatinine Clearance 0 mL/min (70-130); Calcium 9.7 mg/dL (7.8-10.44); Carbon Dioxide 35 mmol/L (23-31); Chloride 101 mmol/L (98-107); Estimated GFR 72; Globulin 3.1 g/dL (2.4-3.5); Glucose 137 mg/dL (80-115); Magnesium 2.3 mg/dL (1.6-2.6); Potassium 4.1 mmol/L (3.5-5.1); Protein, Total 6.9 g/dL (5.8-8.1); Sodium 143 mmol/L (136-145)
[2023-07-20] MEDS ORDERED: Piperacillin/Tazobactam 4.5 GM VIAL ONE (13:13)
[2023-07-20] MEDS ORDERED: Sodium Chloride 0.9% 100 ML ONE (13:13)
[2023-07-20] MEDS ORDERED: Vancomycin 1 GM/200 ML (FROZEN) BAG ONE (13:14)
== END 2023-07-20 16:43 | disposition home or self-care (01) ==
LOC: ERS 11:22
DX: J44.1 Chronic obstructive pulmonary disease with (acute) exacerbation (principal); J18.9 Pneumonia, unspecified organism; I10 Essential (primary) hypertension; F17.210 Nicotine dependence, cigarettes, uncomplicated; Z79.899 Other long term (current) drug therapy
CPT/HCPCS: 71045; 80053; 82805; 83605; 83735; 83880; 85025; 87040; 93005; 94640; 94660; 94760; 96374; 96375; 99285; J3370; 36415; J2543; J3475; J3490; J7620